=== PATIENT | female | born 1960 | race Caucasian/White ===

== ENCOUNTER → 2017-08-20 13:32 | Outpatient (CLI) | payer BC, SELFPAY ==
[2017-08-20 15:26] LABS: Anion Gap 6 (5-15); BUN 10 mg/dL (7-18); Calcium,Total 9.1 mg/dL (8.5-10.1); Chloride 103 mmol/L (98-107); Creatinine, Serum 0.91 mg/dL (0.55-1.02); EST Glomerular Filtration Rate 68 mL/min (>60); Est Glom Filt Rate - Afr Amer 82 mL/min (>60); Glucose 83 mg/dL (74-106); Sodium Level 137 mmol/L (136-145)
== END ==
PROVIDERS: Family Provider Family Medicine Geriatric Medicine; PCP Family Medicine Geriatric Medicine; Visit Provider Family Medicine Geriatric Medicine
DX: E87.6 Hypokalemia (principal)
CPT/HCPCS: 36415; 80048

== ENCOUNTER → 2018-01-22 14:25 | Outpatient (CLI) | payer BC, SELFPAY ==
[2018-01-22 17:34] LABS: Absolute Lymphocyte Count 2.26 X10^3/ul (0.83-4.51); Basophil# 0.01 X10^3/uL; Basophil% 0.1 % (0-1); Eosinophil# 0.03 X10^3/uL; Eosinophils% 0.4 % (0-5); Hemoglobin 13.3 g/dl (12.0-15.0); Lymphocyte # 2.26 X10^3/ul (4.0); Lymphocyte % 33.7 % (19-41); Mean Corp Hgb Conc 34.1 g/gl (32-36); Mean Corpuscular Hgb 30.4 pg (27.0-32.0); Mean Platelet Vol. 9.4 fl (6.2-12.0); Monocyte# 0.35 X10^3/uL; Monocyte% 5.2 % (0-10); Neutrophil # 4.04 X10^3/uL (2.7-7.7); Neutrophil % 60.5 % (47-70); POSITIVE COUNT NO; POSITIVE DIFFERENTIAL NO; POSITIVE MORPHOLOGY NO; Platelet Count 282 K/mm3 (150-450); RBC Distribution Width CV 12.8 % (11.6-14.6); RBC Distribution Width SD 41.5 fl (35.1-43.9); Red Blood Count 4.38 M/mm3 (4.2-5.4); White Blood Count 6.7 K/mm3 (4.4-11.0)
[2018-01-22 17:58] LABS: Vitamin D,25 Hydroxy 43.8 ng/mL (29.95-100.01)
[2018-01-22 18:00] LABS: ALB/GLOB Ratio 1.1 RATIO (0.9-2.4); AST(SGOT) 31 U/L (15-37); Alanine Aminotransfer ALT/SGPT 28 U/L (13-56); Alkaline Phosphatase 66 U/L (45-117); Anion Gap 10 (5-15); BUN 10 mg/dL (7-18); BUN/Creat Ratio 11.6 RATIO (10-20); Calcium,Total 8.8 mg/dL (8.5-10.1); Chloride 106 mmol/L (98-107); Creatinine, Serum 0.86 mg/dL (0.55-1.02); EST Glomerular Filtration Rate 73 mL/min (>60); Est Glom Filt Rate - Afr Amer 88 mL/min (>60); Globulin 3.8 g/dL (2.2-4.2); Glucose 80 mg/dL (74-106); Potassium 3.4 mmol/L (3.5-5.1); Protein, Total 7.8 g/dL (6.4-8.2); Sodium Level 142 mmol/L (136-145); Thyroid Stim Hormone (TSH) 0.67 uIU/mL (0.358-3.74)
[2018-01-24 14:21] LABS: Hep C Antibodies <0.1 s/co ratio (0.0-0.9)
== END ==
PROVIDERS: Family Provider Family Medicine Geriatric Medicine; PCP Family Medicine Geriatric Medicine; Visit Provider Family Medicine Geriatric Medicine
DX: E55.9 Vitamin D deficiency, unspecified (principal); I10 Essential (primary) hypertension; Z13.89 Encounter for screening for other disorder
CPT/HCPCS: 36415; 80053; 82306; 84443; 85025; 86803

== ENCOUNTER → 2018-05-06 13:17 | Outpatient (CLI) | payer BC, SELFPAY ==
[2018-05-14 10:51] LABS: Miscellaneous Lab Procedure E
== END ==
PROVIDERS: Visit Provider Obstetrics & Gynecology
DX: N90.89 Other specified noninflammatory disorders of vulva and perineum (principal)

== ENCOUNTER → 2018-05-30 11:09 | Outpatient (CLI) | payer BC, SELFPAY ==
[2018-05-30 12:12] LABS: Anion Gap 7 (5-15); BUN 16 mg/dL (7-18); BUN/Creat Ratio 18.3 RATIO (10-20); Calcium,Total 8.7 mg/dL (8.5-10.1); Chloride 107 mmol/L (98-107); Creatinine, Serum 0.87 mg/dL (0.55-1.02); EST Glomerular Filtration Rate 71 mL/min (>60); Est Glom Filt Rate - Afr Amer 86 mL/min (>60); Glucose 83 mg/dL (74-106); Potassium 4.1 mmol/L (3.5-5.1); Sodium Level 142 mmol/L (136-145)
== END ==
PROVIDERS: Visit Provider Family Medicine Geriatric Medicine
DX: E87.6 Hypokalemia (principal)
CPT/HCPCS: 36415; 80048

== ENCOUNTER → 2018-06-25 07:29 | Outpatient (CLI) | payer BC, SELFPAY ==
--- NOTE | 2018-06-25 07:31 | BI_ITS ---
MAMMOGRAPHY - BILATERAL SCREENING REASON FOR EXAM: Female, 57 years old. Routine annual screening examination. PERTINENT HISTORY: Non-contributory. TECHNIQUE: Digital bilateral breast cassandra (3D mammographic acquisition) in the CC and MLO projections. 2-D mediolateral oblique (MLO) and craniocaudad (CC) views of both breasts were obtained. CAD: Full Field Digital Mammography with Computer Added Detection was performed. COMPARISON: Comparison is made with prior study dated June 03, 2017 and May 21, 2016. FINDINGS: Breast Composition: The breasts are heterogeneously dense, which may obscure small masses. There are no dominant masses or suspicious calcifications. No other significant abnormalities are identified. There has been no significant change since the prior study. BI/SCREENING MAMM (CAD), BILAT IMPRESSION: Stable bilateral screening mammogram. Yearly follow-up mammogram recommended. (A) ASSESSMENT CATEGORY: BIRADS Category 1: Negative. A letter regarding these results will be sent to the patient by the facility within 30 days. Approximately 10% of breast cancers are not detected by mammography. A normal mammogram should not delay biopsy of a clinically suspicious abnormality. [id number] Electronically Signed: Terry Mccrary MD at 8:32 EST Tel [phone], Service support ,
--- OUTSIDE RECORDS SUMMARY | 2018-08-11 02:32 | XMS RPT_ITS ---
:1960 Author Organization OHIP Support Name Relationship Address Phone ROMAIN IDA/DACIA Unavailable [address] + [place] [address] WOOBR Unavailable [address] + [address] [place] [address] ROMAIN, IDA/DACIA Unavailable [address] + [place] [address] WOOBR Unavailable [address] + [address] [place] [address] ROMAIN, IDA/DACIA Unavailable [address] + [place] [address] WOOBR Unavailable [address] + [address] [place] [address] ROMAIN, IDA/DACIA Unavailable [address] + [place] [address] WOOBR Unavailable [address] + [address] [place] [address] ROMAIN, IDA/DACIA Unavailable [address] + [place] [address] WOOBR Unavailable [address] + [address] [place] [address] ROMAIN, IDA/DACIA Unavailable [address] + [place] [address] WOOBR Unavailable [address] + [address] [place] [address] ROMAIN, IDA/DACIA Unavailable [address] + [place] [address] WOOBR Unavailable [address] + [address] [place] [address] IDA HOYOS/DACIA Unavailable [address] + [place] [address] WOOBR Unavailable [address] + [address] [place] [address] Care Team Providers Name Role Phone Ana Paula Garcia Attending Unavailable ColesAna Paula Referring Unavailable Jordin, Juan Jose Chi Primary Care Unavailable Jordin, Juan Jose Chi Attending Unavailable Jordin, Juan Jose Chi Primary Care Unavailable Jordin, Juan Jose Chi Attending Unavailable Jordin, Juan Jose Chi Primary Care Unavailable Jordin, Juan Jose Chi Attending Unavailable Jordin, Juan Jose Chi Primary Care Unavailable Jordin, Juan Jose Chi Attending Unavailable Jordin, Juan Jose Chi Primary Care Unavailable Jordin, Juan Jose Chi Attending Unavailable Jordin, Juan Jose Chi Primary Care Unavailable Ana Paula Garcia Attending Unavailable Jordin, Juan Jose Chi Attending Unavailable PROBLEMS PROBLEMS DATE TYPE CONDITION / CODE ATTENDING STATUS SOURCE 05/27/2018 Unknown N90.89 - Other Ana Paula Garcia Active [place] [facility] and perineum / N90.89(ICD-10) 08/20/2017 Unknown E87.6 - Hypokalemia / Jordin, Juan Jose Chi Active Carlos E87.6(ICD-10) [facility] Repository PROCEDURES PROCEDURES No Procedure Records FoundRESULTS RESULTS BASIC METABOLIC Collected: 08/05/2018 Status: F Source: [place] PROFILE (BMP) 4:35 PM [facility] TYPE CODE TESTS RESULT OUT OF RANGE REFERENCE UNITS LAB L501.0100 74-106 mg/dL Normal GLU 80 Result Comment: Please note revised GLUCOSE reference range effective 2017. LAB L501.1000 7-18 mg/dL Normal BUN 12 LAB L501.1100 0.55-1.02 mg/dL Normal CREAT,SERUM 0.84 Result Comment: The validity of the calculated GFR AND GFRAA in patients over 70 years has not been determined. Clinical correlation is essential. LAB L501.1110 >60 mL/min Normal EST GFR 74 Result Comment: Non- GFR Calc LAB L501.1115 >60 mL/min Normal EST GFR - AA 90 Result Comment: GFR Calc LAB L501.1300 10-20 RATIO Normal BUN/CRE 14.3 LAB L501.2200 8.5-10.1 mg/dL CA Normal 8.9 LAB L501.5300 136-145 mmol/L NA Normal 142 LAB L501.5600 3.5-5.1 mmol/L K Normal 3.6 LAB L501.5900 98-107 mmol/L High CL 108 LAB L501.6100 21.0-32.0 mmol/L Normal CO2 26.0 LAB L501.6200 5-15 Normal GAP 8 Performed By: #### L500.2500 #### [facility] [place], [address] CBC W/DIFF, AUTOMATED Collected: 07/28/2018 Status: F Source: [place] 2:37 PM [facility] [place] TYPE CODE TESTS RESULT OUT OF RANGE REFERENCE UNITS LAB L100.1000 4.4-11.0 K/mm3 Normal WBC 6.5 LAB L100.1200 4.2-5.4 M/mm3 Low RBC 4.06 LAB L100.1300 12.0-15.0 g/dl Normal HGB 12.5 LAB L100.1400 37-47 % Normal HCT 37.3 LAB L100.1500 81-99 fL Normal MCV 91.9 LAB L100.1600 27.0-32.0 pg Normal MCH 30.8 LAB L100.1700 32-36 g/gl Normal MCHC 33.5 LAB L100.1810 11.6-14.6 % Normal RDW CV 13.1 LAB L100.1820 35.1-43.9 fl Normal RDW SD 43.9 LAB L100.1900 150-450 K/mm3 Normal PLT 286 LAB L100.2000 6.2-12.0 fl Normal MPV 9.3 LAB L100.2100 47-70 % Normal NEUT% 60.5 LAB L100.2200 19-41 % Normal LY% 31.4 LAB L100.2300 0-10 % Normal MONO% 7.0 LAB L100.2400 0-5 % Normal EO% 0.6 LAB L100.2500 0-1 % Normal BASO% 0.3 LAB L100.2550 0.0-0.9 % Normal IM GRAN % 0.200 Result Comment: IG% - Immature Granulocytes (promyelocytes, myelocytes and metamyelocytes) > 1% indicates that a LEFT SHIFT is Present. LAB L100.2620 2.0-7.7 X10 3/uL Normal Absolute Neut 3.9 LAB L100.2720 0.83-4.51 X10 3/ul Normal Absolute Lymph 2.03 Performed By: #### L100.0100 #### [facility] [address] [place], [address] VITAMIN D,25 HYDROXY Collected: 07/28/2018 Status: F Source: [place] 2:37 PM [facility] [place] TYPE CODE TESTS RESULT OUT OF RANGE REFERENCE UNITS LAB L506.1000 29.95-100.01 ng/mL Normal Vitamin D 59.8 25-OH Result Comment: Vitamin D 25(OH) Status Range Deficiency <20 ng/mL (50nmol/L) Insuffciency 20 - 30 ng/mL (50 - 75 nmol/L) Sufficiency 30 - 100 ng/mL (75 - 250 nmol/L) Toxicity >100 ng/mL (>250 nmol/L) Performed By: #### L506.1000 #### [facility] [address] [place], [address] COMPREHENSIVE METABOLIC Collected: 07/28/2018 Status: F Source: [facility] 2:37 PM [facility] [place] TYPE CODE TESTS RESULT OUT OF RANGE REFERENCE UNITS LAB L501.0100 74-106 mg/dL Normal GLU 75 Result Comment: Please note revised GLUCOSE reference range effective 2017. LAB L501.1000 7-18 mg/dL Normal BUN 9 LAB L501.1100 0.55-1.02 mg/dL Normal CREAT,SERUM 0.91 Result Comment: The validity of the calculated GFR AND GFRAA in patients over 70 years has not been determined. Clinical correlation is essential. LAB L501.1110 >60 mL/min Normal EST GFR 68 Result Comment: Non- GFR Calc LAB L501.1115 >60 mL/min Normal EST GFR - AA 82 Result Comment: GFR Calc LAB L501.1300 10-20 RATIO Low BUN/CRE 9.9 LAB L501.1500 6.4-8.2 g/dL Normal T PROT 7.4 LAB L501.1800 3.2-5.0 g/dL Normal ALB 4.0 LAB L501.1950 2.2-4.2 g/dL Normal GLOB 3.4 LAB L501.2000 0.9-2.4 RATIO Normal A/G 1.2 LAB L501.2200 8.5-10.1 mg/dL Normal CA 8.7 LAB L501.4100 15-37 U/L Normal AST 23 LAB L501.4305 45-117 U/L Normal ALK P 60 LAB L501.4405 13-56 U/L Normal ALT 29 LAB L501.4600 0.20-1.00 mg/dL Normal T BILI 0.70 LAB L501.5300 136-145 mmol/L Normal NA 137 LAB L501.5600 3.5-5.1 mmol/L Low K 3.3 LAB L501.5900 98-107 mmol/L Normal CL 99 LAB L501.6100 21.0-32.0 mmol/L Normal CO2 27.0 LAB L501.6200 5-15 Normal GAP 11 Performed By: #### L500.4050, L501.9520 #### [facility] [address] [place], [address] THYROID STIM HORMONE Collected: 07/28/2018 Status: F Source: [place] (TSH) 2:37 PM [facility] [place] [place] TYPE CODE TESTS RESULT OUT OF RANGE REFERENCE UNITS LAB L501.9520 0.358-3.74 uIU/mL Normal TSH 0.83 Performed By: #### L500.4050, L501.9520 #### [facility] [address] [place], [address] SCREENING MAMM (CAD), Observed: 06/25/2018 Status: F Source: [place] B[place] 7:31 AM [facility] [place] [facility] Imaging Services [address] [place] [address] SCREENING MAMM (CAD), BILAT MR#: [id number] Acct: [id number] Name: KARIE HOYOS Rep #: [id number] : 1960 F 57 From: Terry Mccrary MD PCP: Jordin ROMERO,Juan Jose Card Status: REG CLI Study: SCREENING MAMM (CAD), BILAT Date of Exam: 06/25/18 Exam# [id number] Ordering Dr: Ana Paula Garcia MD MAMMOGRAPHY - BILATERAL SCREENING REASON FOR EXAM: Female, 57 years old. Routine annual screening examination. PERTINENT HISTORY: Non-contributory. TECHNIQUE: Digital bilateral breast cassandra (3D mammographic acquisition) in the CC and MLO projections. 2-D mediolateral oblique (MLO) and craniocaudad (CC) views of both breasts were obtained. CAD: Full Field Digital Mammography with Computer Added Detection was performed. COMPARISON: Comparison is made with prior study dated June 03, 2017 and May 21, 2016. FINDINGS: Breast Composition: The breasts are heterogeneously dense, which may obscure small masses. There are no dominant masses or suspicious calcifications. No other significant abnormalities are identified. There has been no significant change since the prior study. BI/SCREENING MAMM (CAD), BILAT IMPRESSION: Stable bilateral screening mammogram. Yearly follow-up mammogram recommended. (A) ASSESSMENT CATEGORY: BIRADS Category 1: Negative. A letter regarding these results will be sent to the patient by the facility within 30 days. Approximately 10% of breast cancers are not detected by mammography. A normal mammogram should not delay biopsy of a clinically suspicious abnormality. [id number] Electronically Signed: Terry Mccrary MD at 8:32 EST Tel [phone], Service support , CC: Ana Paula Garcia MD; Juan Jose Brenner MD Residential Director: Signed BASIC METABOLIC Collected: 05/30/2018 Status: F Source: [place] PROFILE (BMP) 11:10 AM [facility] [place] Order Comment: Comments: . TYPE CODE TESTS RESULT OUT OF RANGE REFERENCE UNITS LAB L501.0100 74-106 mg/dL Normal GLU 83 Result Comment: Please note revised GLUCOSE reference range effective 2017. LAB L501.1000 7-18 mg/dL Normal BUN 16 LAB L501.1100 0.55-1.02 mg/dL Normal CREAT,SERUM 0.87 Result Comment: The validity of the calculated GFR AND GFRAA in patients over 70 years has not been determined. Clinical correlation is essential. LAB L501.1110 >60 mL/min Normal EST GFR 71 Result Comment: Non- GFR Calc LAB L501.1115 >60 mL/min Normal EST GFR - AA 86 Result Comment: GFR Calc LAB L501.1300 10-20 RATIO Normal BUN/CRE 18.3 LAB L501.2200 8.5-10.1 mg/dL CA Normal 8.7 LAB L501.5300 136-145 mmol/L NA Normal 142 LAB L501.5600 3.5-5.1 mmol/L K Normal 4.1 LAB L501.5900 98-107 mmol/L CL Normal 107 LAB L501.6100 21.0-32.0 mmol/L Normal CO2 28.0 LAB L501.6200 5-15 Normal GAP 7 Performed By: #### L500.2500 #### [facility] [address] [place], [place], [address] MISCELLANEOUS LAB Collected: 05/06/2018 Status: F Source: [place] PROCEDURE 10:15 AM [facility] Order Comment: Comments: #[id number] VIRAL CULTURE HSV/VZV RF Test(s) Ordered: #[id number] VIRAL CULTURE HSV/VZV RF TYPE CODE TESTS RESULT OUT OF RANGE REFERENCE UNITS LAB L801.1541 Normal [facility] E TEST Result Comment: Viral Culture, Rapid,Lesion HSV Culture/Type Positive for Herpes simplex virus type-1. Typing was confirmed by monoclonal antibody microscopic immunofluorescence. Viral Culture, Rapid Vericella Herpes simplex virus was isolated and confirmwd by flourescent antibody staining. This isolation of Varicella-Zoster virus from this culture is not possible due to the growth of Herpes simplex virus. This does not rule out the possibility of Varicella-Zoster virus. TESTING PERFORMED AT [facility]. ORIGINAL REPORT ON FILE IN LAB CONTAINS ADDITIONAL TEST SITE INFORMATION. Performed By: #### L801.1541 #### [place] [facility] [address] [place], [address] CNPN Observed: 04/30/2018 Status: COMPLETED Source: [place] 12:00 AM [facility] REPOSITORY Telephone (BONEMN) KARIE HOYOS ([id number]) 1960 F Date Time Provider Department 04/30/18 HARJEET DOMINGUEZ BONEMN During your visit today, we recorded the following information about you: Dacia Rodriguez ADM 04/30/2018 4:01 PM Addendum Received outside medical records. 2015 AND 2018 bone density results/images, 04/24/2018 office visit notes 10/22/2016 lab results and referral note from Dr. Karri Bardales from [facility]. Forwarded to Dr. Harjeet Dominguez. Placed in green folder on desk. Dacia Zimmerman Allergies As of Date: 04/30/2018 Noted Allergy Reaction RELPAX (ELETRIPTAN) 06/22/2011 14 - Other: See Comments Comments: chest pain CLIDINIUM 04/22/2015 16 - Unknown DICYCLOMINE 06/01/2015 9 - Itching FLAGYL (METRONIDAZOLE HCL) 06/02/2013 8 - GI Upset LEXAPRO (ESCITALOPRAM OXALATE) 12/24/2011 16 - Unknown LIBRAX (WITH CLIDINIUM) (CHLORDIA*03/08/2014 9 - Itching Comments: numbness MEDROXYPROGESTERONE 06/01/2015 2 - Rash Comments: Severe reaction NORETHINDRONE 12/24/2011 16 - Unknown PAXIL (PAROXETINE HCL) 12/24/2011 16 - Unknown PREDNISONE 03/20/2015 10 - Anaphylaxis PROVERA CP 06/02/2013 11 - Vomiting PROZAC (FLUOXETINE HCL) 12/24/2011 16 - Unknown TOPROL XL (METOPROLOL SUCCINATE) 12/24/2011 16 - Unknown TORADOL (KETOROLAC TROMETHAMINE) 11/09/2009 Comments: flushing, and feeling like she was going to pass out Date Reviewed: 06/01/2015 Reviewed by: Violet ([facility]) RAMON Horan - Fully Assessed Reason for Visit: Received Outside Medical Records [[id number]] Prescriptions as of 04/30/2018 Sig: ALMOTRIPTAN MALATE 12.5 MG TA* Take 1 tablet by mouth as nee* HYOSCYAMINE 0.125 MG SUBLINGU* Dissolve 1 tablet under the t* CELECOXIB 200 MG CAPSULE Take 200 mg by mouth once des* BUDESONIDE DR - ER 3 MG CAPSU* Take 3 capsules by mouth once* TOPIRAMATE 25 MG TABLET Take 1 tablet by mouth once d* ALENDRONATE 70 MG TABLET Take 70 mg by mouth once each* VILAZODONE 10 MG (7)-20 MG (7* Take by mouth. GABAPENTIN 100 MG CAPSULE Take 300 mg by mouth daily at* CHOLECALCIFEROL (VITAMIN D3) * Take 1,000 Units by mouth onc* CYCLOBENZAPRINE 10 MG TABLET Take 0.5 tablets by mouth des* POTASSIUM BICARBONATE AND CHL* Take 25 mEq by mouth once des* CALCIUM CITRATE 200 MG (950 M* Take 950 mg by mouth once des* LORAZEPAM 0.5 MG TABLET Take 0.5 tablets by mouth des* * MULTIVITAMIN TABLET Take one(1) tablet daily. 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] Encounter Status:Closed by DACIA VO on 04/30/18 CBC W/DIFF, AUTOMATED Collected: 01/22/2018 Status: F Source: [place] 2:25 PM [facility] [place] TYPE CODE TESTS RESULT OUT OF RANGE REFERENCE UNITS LAB L100.1000 4.4-11.0 K/mm3 Normal WBC 6.7 LAB L100.1200 4.2-5.4 M/mm3 Normal RBC 4.38 LAB L100.1300 12.0-15.0 g/dl Normal HGB 13.3 LAB L100.1400 37-47 % Normal HCT 39.0 LAB L100.1500 81-99 fL Normal MCV 89.0 LAB L100.1600 27.0-32.0 pg Normal MCH 30.4 LAB L100.1700 32-36 g/gl Normal MCHC 34.1 LAB L100.1810 11.6-14.6 % Normal RDW CV 12.8 LAB L100.1820 35.1-43.9 fl Normal RDW SD 41.5 LAB L100.1900 150-450 K/mm3 Normal PLT 282 LAB L100.2000 6.2-12.0 fl Normal MPV 9.4 LAB L100.2100 47-70 % Normal NEUT% 60.5 LAB L100.2200 19-41 % Normal LY% 33.7 LAB L100.2300 0-10 % Normal MONO% 5.2 LAB L100.2400 0-5 % Normal EO% 0.4 LAB L100.2500 0-1 % Normal BASO% 0.1 LAB L100.2550 0.0-0.9 % Normal IM GRAN % 0.100 Result Comment: IG% - Immature Granulocytes (promyelocytes, myelocytes and metamyelocytes) > 1% indicates that a LEFT SHIFT is Present. LAB L100.2620 2.0-7.7 X10 3/uL Normal Absolute Neut 4.0 LAB L100.2720 0.83-4.51 X10 3/ul Normal Absolute Lymph 2.26 Performed By: #### L100.0100 #### [facility] [address] [place], [address] VITAMIN D,25 HYDROXY Collected: 01/22/2018 Status: F Source: [place] 2:25 PM [facility] [place] TYPE CODE TESTS RESULT OUT OF RANGE REFERENCE UNITS LAB L506.1000 29.95-100.01 ng/mL Normal Vitamin D 43.8 25-OH Result Comment: Vitamin D 25(OH) Status Range Deficiency <20 ng/mL (50nmol/L) Insuffciency 20 - 30 ng/mL (50 - 75 nmol/L) Sufficiency 30 - 100 ng/mL (75 - 250 nmol/L) Toxicity >100 ng/mL (>250 nmol/L) Performed By: #### L506.1000 #### [facility] [address] [place], [address] COMPREHENSIVE METABOLIC Collected: 01/22/2018 Status: F Source: [place] [facility] 2:25 PM [facility] [place] TYPE CODE TESTS RESULT OUT OF RANGE REFERENCE UNITS LAB L501.0100 74-106 mg/dL Normal GLU 80 Result Comment: Please note revised GLUCOSE reference range effective 2017. LAB L501.1000 7-18 mg/dL Normal BUN 10 LAB L501.1100 0.55-1.02 mg/dL Normal CREAT,SERUM 0.86 Result Comment: The validity of the calculated GFR AND GFRAA in patients over 70 years has not been determined. Clinical correlation is essential. LAB L501.1110 >60 mL/min Normal EST GFR 73 Result Comment: Non- GFR Calc LAB L501.1115 >60 mL/min Normal EST GFR - AA 88 Result Comment: GFR Calc LAB L501.1300 10-20 RATIO Normal BUN/CRE 11.6 LAB L501.1500 6.4-8.2 g/dL T Normal PROT 7.8 LAB L501.1800 3.2-5.0 g/dL Normal ALB 4.0 LAB L501.1950 2.2-4.2 g/dL Normal GLOB 3.8 LAB L501.2000 0.9-2.4 RATIO Normal A/G 1.1 LAB L501.2200 8.5-10.1 mg/dL CA Normal 8.8 LAB L501.4100 15-37 U/L Normal AST 31 LAB L501.4305 45-117 U/L Normal ALK P 66 LAB L501.4405 13-56 U/L Normal ALT 28 LAB L501.4600 0.20-1.00 mg/dL T Normal BILI 0.80 LAB L501.5300 136-145 mmol/L NA Normal 142 LAB L501.5600 3.5-5.1 mmol/L Low K 3.4 LAB L501.5900 98-107 mmol/L CL Normal 106 LAB L501.6100 21.0-32.0 mmol/L Normal CO2 26.0 LAB L501.6200 5-15 Normal GAP 10 Performed By: #### L500.4050, L501.9520 #### [facility] [address] [place], [place], [id number] THYROID STIM HORMONE Collected: 01/22/2018 Status: F Source: [place] (TSH) 2:25 PM [facility] [place] TYPE CODE TESTS RESULT OUT OF RANGE REFERENCE UNITS LAB L501.9520 0.358-3.74 uIU/mL Normal TSH 0.67 Performed By: #### L500.4050, L501.9520 #### [facility] [address] [place], [place], [id number] HEPATITIS C ANTIBODIES Collected: 01/22/2018 Status: F Source: [place] 2:25 PM [facility] [place] TYPE CODE TESTS RESULT OUT OF RANGE REFERENCE UNITS LAB L3100.0650 0.0-0.9 s/co ratio Normal HEP C AB <0.1 Result Comment: Negative: < 0.8 Indeterminate: 0.8 - 0.9 Positive: > 0.9 The CDC recommends that a positive HCV antibody result be followed up with a HCV Nucleic Acid Amplification test ([id number]). Performed at: - [facility] [id number] Vice President Investor Relations: Matias Harrison PhD, Phone: [phone] Performed By: #### L3100.0625 #### [facility] (refer to report for specific site) refer to report for address and phone number BASIC METABOLIC Collected: 08/20/2017 Status: F Source: [place] PROFILE (BMP) 1:33 PM [facility] [place] TYPE CODE TESTS RESULT OUT OF RANGE REFERENCE UNITS LAB L501.0100 74-106 mg/dL Normal GLU 83 LAB L501.1000 7-18 mg/dL Normal BUN 10 LAB L501.1100 0.55-1.02 mg/dL Normal 0.91 CREAT,SERUM Result Comment: The validity of the calculated GFR AND GFRAA in patients over 70 years has not been determined. Clinical correlation is essential. LAB L501.1110 >60 mL/min Normal EST GFR 68 Result Comment: Non- GFR Calc LAB L501.1115 >60 mL/min Normal EST GFR - AA 82 Result Comment: GFR Calc LAB L501.1300 10-20 RATIO Normal BUN/CRE 11.0 LAB L501.2200 8.5-10.1 mg/dL CA Normal 9.1 LAB L501.5300 136-145 mmol/L NA Normal 137 LAB L501.5600 3.5-5.1 mmol/L K Normal 4.0 LAB L501.5900 98-107 mmol/L CL Normal 103 LAB L501.6100 21.0-32.0 mmol/L Normal CO2 28.0 LAB L501.6200 5-15 Normal GAP 6 Performed By: #### L500.2500 #### [facility] [place], [address] BASIC METABOLIC Collected: 08/08/2017 Status: F Source: [place] PROFILE (BMP) 1:42 PM [facility] [place] TYPE CODE TESTS RESULT OUT OF RANGE REFERENCE UNITS LAB L501.0100 70-110 mg/dL Normal GLU 84 LAB L501.1000 7-18 mg/dL Normal BUN 13 LAB L501.1100 0.55-1.02 mg/dL Normal 0.76 CREAT,SERUM Result Comment: The validity of the calculated GFR AND GFRAA in patients over 70 years has not been determined. Clinical correlation is essential. LAB L501.1110 >60 mL/min Normal EST GFR 85 Result Comment: Non- GFR Calc LAB L501.1115 >60 mL/min Normal EST GFR - AA 102 Result Comment: GFR Calc LAB L501.1300 10-20 RATIO Normal BUN/CRE 17.2 LAB L501.2200 8.5-10.1 mg/dL CA Normal 8.8 LAB L501.5300 136-145 mmol/L NA Normal 140 LAB L501.5600 3.5-5.1 mmol/L Low K 3.4 LAB L501.5900 98-107 mmol/L CL Normal 105 LAB L501.6100 21.0-32.0 mmol/L Normal CO2 27.0 LAB L501.6200 5-15 Normal GAP 8 Performed By: #### L500.2500 #### [facility] [address] [place], [address] ALLERGIES ALLERGIES DATE TYPE / NAME / CODE REACTION SEVERITY SOURCE CODE 04/08/2017 Drug hydrocodone/[id number](R Itching Unknown [place] Allergy/4 XNORM) Community [id number]( [facility]) 04/08/2017 Drug acetaminophen/[id number] Itching Unknown [place] Allergy/4 (RXNORM) Community [id number]( [facility]) 04/08/2017 Drug prednisone/[id number](RX Chest Unknown [place] Allergy/4 NORM) tightness Community [id number]( [facility]) 04/08/2017 Drug dicyclomine/[id number](R Itching Unknown [place] Allergy/4 XNORM) Community [id number]( [facility]) 04/08/2017 Drug medroxyprogesterone/F006 Unknown Unknown [place] Allergy/4 856814(RXNORM) Community [id number]( [facility]) 04/23/2014 Drug medroxyprogesterone Nausea Unknown [place] Allergy/4 acetate/[id number](RXNOR Community [id number]( ) [facility]) 04/23/2014 Drug fluoxetine Unknown Unknown [place] Allergy/4 HCl/[id number](RXNORM) Community [id number]( [facility]) 04/23/2014 Drug ketorolac Chest Unknown [place] Allergy/4 tromethamine/M678163505( tightness Community [id number]( RXNORM) [facility]) 04/23/2014 Drug metoprolol Unknown Unknown [place] Allergy/4 succinate/L396526106(RXN Community [id number]( ORM) [facility]) 04/23/2014 Drug paroxetine Unknown Unknown [place] Allergy/4 HCl/[id number](RXNORM) Community [id number]( [facility]) 04/23/2014 Drug eletriptan Chest Unknown [place] Allergy/4 HBr/G349840458(RXNORM) tightness Community [id number]( [facility]) 04/23/2014 Drug escitalopram Unknown Unknown [place] Allergy/4 oxalate/I766742642(RXNOR Community [id number]( M) [facility]) 04/23/2014 Drug norethindrone/[id number] Nausea Unknown [place] Allergy/4 (RXNORM) Community [id number]( [facility]) 04/23/2014 Drug chlordiazepoxide/U572608 Itching Unknown [place] Allergy/4 454(RXNORM) Community [id number]( [facility]) 04/23/2014 Drug metronidazole/D780595032 Nausea Unknown [place] Allergy/4 (RXNORM) Community [id number]( [facility]) 04/23/2014 Drug clidinium/G750514229(RXN Itching Unknown [place] Allergy/4 ORM) Community [id number]( [facility]) ENCOUNTERS ENCOUNTERS ADMIT/DISCHARGE ACCOUNT ADMITTING ENCOUNTER LOCATION SOURCE NUMBER CLASS 08/05/2018 [id number] Ambulatory [place] 1 [facility] ing:POLAB3 Repository 07/28/2018 [id number] Ambulatory [place] 8 [facility] ing:POLAB3 Repository 06/25/2018 [id number] Ambulatory [place] 4 [facility] ing:OPBI Repository 05/30/2018 [id number] Ambulatory [place] 2 [facility] ing:POLAB3 Repository 05/06/2018 [id number] Ambulatory [place] 9 [facility] ing:LABSPEC Repository 01/22/2018 [id number] Ambulatory [place] 1 [facility] ing:POLAB3 Repository 08/20/2017 [id number] Ambulatory [place] 6 [facility] ing:POLAB3 Repository 08/08/2017 [id number] Ambulatory [place] Carlos 5 [facility] ing:LAB.FUTUR Repository E PAYERS PAYERS ENCOUNTER GUARANTOR PAYER SUBSCRIBER SOURCE 08/05/2018 KARIE K Primary KARIE K Carlos [id number] N Insurance:ANTHEMPolic STULLDOB: Community [place] y Number: [id number], [place] [id number] Repository [address]Iwf: (330) Date:5568-23-14JS [phone] () [id number], [place] [address]JW: 08/05/2018 Secondary NOT GIVENUNK [place] Insurance:SELF PAY [facility] Number: Effective Repository Date:2018-07-31 07/28/2018 KARIE K Primary KARIE K [place] [id number] N Insurance:ANTHEMPolic STULLDOB: Community [place] y Number: [id number] [place] [id number] Repository 004[address]Soi: (330) Date:0839-85-73AA [phone] () 272109MSDVOXO, [place] [address]NE: 07/28/2018 Secondary NOT GIVENUNK Carlos Insurance:SELF PAY [facility] Number: Effective Repository Date:2018-07-28 06/25/2018 KARIE K Primary KARIE K [place] [id number] N Insurance:ANTHEMPolic STULLDOB: Community [place] y Number: [id number] [place], [place] [id number] Repository 50484Fxv: (330) Date:0673-44-17KM [phone] () 172712IFHAOCZ, [place] [address]OT: 06/25/2018 Secondary NOT GIVENUNK [place] Insurance:SELF PAY [facility] Number: Effective Repository Date:2018-06-02 05/30/2018 KARIE K Primary KARIE K Carlos [id number] N Insurance:ANTHEMPolic STULLDOB: Community [place] y Number: [id number] [place] [id number] Repository 10027Suk: (330) Date:0099-55-62AV [phone] () JOSE G SANCHEZ [address]IL: 05/30/2018 Secondary NOT GIVENUNK [place] Insurance:SELF PAY [facility] Number: Effective Repository Date:2018-05-30 05/06/2018 KARIE K Primary KARIE K [place] [id number] N Insurance:ANTHEMPolic STULLDOB: Community [place] y Number: [id number] Park Medical [id number] Repository [address]Din: (330) Date:5474-44-29UQ [phone] () [id number] G YOUSIF [address]QG: 05/06/2018 Secondary NOT GIVENUNK [place] Insurance:SELF PAY [facility] Number: Effective Repository Date:2018-05-06 01/22/2018 Karie K Primary Karie K Carlos [id number] N Insurance:ANTHEMPolic StullDOB: Community [place] y Number: [id number] [id number] Repository 489[address]Xny: (330) Date:1918-34-21YW [phone] () [place]SE G SANCHE[place] [address]RM: 01/22/2018 Secondary NOT GIVENUNK [place] Insurance:SELF PAY [facility] Number: Effective Repository Date:2018-01-22 08/20/2017 Karie K Primary Karie K Carlos [id number] N Insurance:ANTHEMPolic StullDOB: Community [place] y Number: [id number], [place] [id number] Repository 006[address]Fni: Date:1868-30-47SA [phone]~330 JOSE G SANCHEZ -2 () [address]NY: 08/20/2017 Secondary NOT GIVENUNK [place] Insurance:SELF PAY [facility] Number: Effective Repository Date:2017-08-12 08/08/2017 Karie K Primary Karie K Carlos [id number] N Insurance:ANTHEMPolic StullDOB: Community [place] y Number: [id number], [place] [id number] Repository 65879Lzn: Date:2801-01-05AB [phone]~330 [id number], [place] -2 () [address]IX: 08/08/2017 Secondary NOT GIVENUNK [place] Insurance:SELF PAY [facility] Number: Effective Repository Date:2017-08-07
== END ==
PROVIDERS: Family Provider Family Medicine Geriatric Medicine; PCP Family Medicine Geriatric Medicine; Referring Provider Obstetrics & Gynecology; Visit Provider Obstetrics & Gynecology
DX: Z12.31 Encounter for screening mammogram for malignant neoplasm of breast (principal)
CPT/HCPCS: 77063; 77067

== ENCOUNTER → 2018-07-28 14:34 | Outpatient (CLI) | payer BC, SELFPAY ==
[2018-07-28 17:46] LABS: Absolute Lymphocyte Count 2.03 X10^3/ul (0.83-4.51); Absolute Neutrophil Count 3.9 X10^3/uL (2.0-7.7); Basophil# 0.02 X10^3/uL; Basophil% 0.3 % (0-1); Eosinophil# 0.04 X10^3/uL; Eosinophils% 0.6 % (0-5); Hematocrit 37.3 % (37-47); Hemoglobin 12.5 g/dl (12.0-15.0); Lymphocyte # 2.03 X10^3/ul (4.0); Lymphocyte % 31.4 % (19-41); Mean Corp Hgb Conc 33.5 g/gl (32-36); Mean Corpuscular Hgb 30.8 pg (27.0-32.0); Mean Corpuscular Volume 91.9 fL (81-99); Mean Platelet Vol. 9.3 fl (6.2-12.0); Monocyte# 0.45 X10^3/uL; Neutrophil # 3.92 X10^3/uL (2.7-7.7); Neutrophil % 60.5 % (47-70); Platelet Count 286 K/mm3 (150-450); RBC Distribution Width CV 13.1 % (11.6-14.6); RBC Distribution Width SD 43.9 fl (35.1-43.9); Red Blood Count 4.06 M/mm3 (4.2-5.4); White Blood Count 6.5 K/mm3 (4.4-11.0)
[2018-07-28 17:51] LABS: POSITIVE COUNT NO; POSITIVE DIFFERENTIAL NO; POSITIVE MORPHOLOGY NO
[2018-07-28 18:14] LABS: Vitamin D,25 Hydroxy 59.8 ng/mL (29.95-100.01)
[2018-07-28 19:12] LABS: ALB/GLOB Ratio 1.2 RATIO (0.9-2.4); AST(SGOT) 23 U/L (15-37); Alanine Aminotransfer ALT/SGPT 29 U/L (13-56); Alkaline Phosphatase 60 U/L (45-117); Anion Gap 11 (5-15); BUN 9 mg/dL (7-18); BUN/Creat Ratio 9.9 RATIO (10-20); Calcium,Total 8.7 mg/dL (8.5-10.1); Chloride 99 mmol/L (98-107); Creatinine, Serum 0.91 mg/dL (0.55-1.02); EST Glomerular Filtration Rate 68 mL/min (>60); Est Glom Filt Rate - Afr Amer 82 mL/min (>60); Globulin 3.4 g/dL (2.2-4.2); Glucose 75 mg/dL (74-106); Potassium 3.3 mmol/L (3.5-5.1); Protein, Total 7.4 g/dL (6.4-8.2); Sodium Level 137 mmol/L (136-145); Thyroid Stim Hormone (TSH) 0.83 uIU/mL (0.358-3.74)
== END ==
PROVIDERS: Family Provider Family Medicine Geriatric Medicine; PCP Family Medicine Geriatric Medicine; Visit Provider Family Medicine Geriatric Medicine
DX: E55.9 Vitamin D deficiency, unspecified (principal); I10 Essential (primary) hypertension
CPT/HCPCS: 36415; 80053; 82306; 84443; 85025

== ENCOUNTER → 2018-08-05 16:34 | Outpatient (CLI) | payer BC, SELFPAY ==
[2018-08-05 17:43] LABS: Anion Gap 8 (5-15); BUN 12 mg/dL (7-18); BUN/Creat Ratio 14.3 RATIO (10-20); Calcium,Total 8.9 mg/dL (8.5-10.1); Chloride 108 mmol/L (98-107); Creatinine, Serum 0.84 mg/dL (0.55-1.02); EST Glomerular Filtration Rate 74 mL/min (>60); Est Glom Filt Rate - Afr Amer 90 mL/min (>60); Glucose 80 mg/dL (74-106); Potassium 3.6 mmol/L (3.5-5.1); Sodium Level 142 mmol/L (136-145)
--- OUTSIDE RECORDS SUMMARY | 2018-10-07 22:56 | XMS RPT_ITS ---
:1960 Author Organization OHIP Care Team Providers Name Role Phone Ana Paula Garcia Attending Unavailable Ana Paula Garcia Referring Unavailable Jordin, Juan Jose Chi Primary Care Unavailable Jordin, Juan Jose Chi Attending Unavailable Jordin, Juan Jose Chi Primary Care Unavailable Jordin, Juan Jose Chi Attending Unavailable Jordin, Juan Jose Chi Primary Care Unavailable Jordin, Juan Jose Chi Attending Unavailable Jordin, Juan Jose Chi Primary Care Unavailable [place]oAna Paula david Attending Unavailable Jordin, Juan Jose Chi Attending Unavailable Jordin, Juan Jose Chi Primary Care Unavailable Jordin, Juan Jose Chi Attending Unavailable PROBLEMS PROBLEMS DATE TYPE CONDITION / CODE ATTENDING STATUS SOURCE 05/27/2018 Unknown N90.89 - Other Ana Paula Garcia Active [place] specified [facility] disorders of vulva Repository and perineum / N90.89(ICD-10) 08/20/2017 Unknown E87.6 - Hypokalemia / Jordin, Juan Jose Chi Active [place] E87.6(ICD-10) [facility] Repository PROCEDURES PROCEDURES No Procedure Records FoundRESULTS RESULTS BASIC METABOLIC Collected: 08/05/2018 Status: F Source: CARLOS PROFILE (BMP) 4:35 PM [facility] TYPE CODE TESTS RESULT OUT OF [...] GAP 8 Performed By: #### L500.2500 #### Laboratory [address] [facility] [address] [place], [place], [address] CBC W/DIFF, AUTOMATED Collected: 07/28/2018 Status: F Source: [place] 2:37 PM [facility] TYPE CODE TESTS RESULT OUT OF [...] Lymph 2.03 Performed By: #### L100.0100 #### Laboratory [address] [place], [address] VITAMIN D,25 HYDROXY Collected: 07/28/2018 Status: F Source: CARLOS 2:37 PM [facility] TYPE CODE TESTS RESULT OUT OF RANGE REFERENCE UNITS LAB L506.1000 29.95-100.01 ng/mL Normal Vitamin D 59.8 25-OH Result Comment: Vitamin D 25(OH) Status Range Deficiency <20 ng/mL (50nmol/L) Insuffciency 20 - 30 ng/mL (50 - 75 nmol/L) Sufficiency 30 - 100 ng/mL (75 - 250 nmol/L) Toxicity >100 ng/mL (>250 nmol/L) Performed By: #### L506.1000 #### Laboratory [address] [place], [address] COMPREHENSIVE METABOLIC Collected: 07/28/2018 Status: F Source: CAR[facility]OS [facility] 2:37 PM [facility] TYPE CODE TESTS RESULT OUT OF [...] 11 Performed By: #### L500.4050, L501.9520 #### Laboratory [address] [facility] [place], [address] THYROID STIM HORMONE Collected: 07/28/2018 Status: F Source: [place] (TSH) 2:37 PM [facility] TYPE CODE TESTS RESULT OUT OF RANGE REFERENCE UNITS LAB 01.9520 0.358-3.74 uIU/mL Normal TSH 0.83 Performed By: #### L500.4050, L501.9520 #### Laboratory [address] [place], [address] SCREENING MAMM (CAD), Observed: 06/25/2018 Status: F Source: CARLOS BILAT 7:31 AM [facility] Imaging Services [address] [place] [address] SCREENING MAMM (CAD), BILAT MR#: [id number] Acct: [id number] Name: KARIE HOYOS Rep #: [id number] : 1960 F 57 From: Terry Mccrary MD PCP: Jordin ROMERO,Juan Jose Chi Status: REG CL Study: SCREENING MAMM (CAD), BILAT Date of Exam: 06/25/18 Exam# [id number] Ordering Dr: Ana Paula Garcia MD MAMMOGRAPHY [...] delay biopsy of a clinically suspicious abnormality. [id number] Electronically Signed: Terry Mccrary MD at 8:32 EST Tel [phone], Service support , CC: Ana Paula Garcia MD; Juan Jose Brenner MD Lathe Operator Contact Lens: Signed BASIC METABOLIC Collected: 05/30/2018 Status: F Source: CARLOS PROFILE (BMP) 11:10 AM [facility] Order Comment: Comments: . TYPE CODE [...] GAP 7 Performed By: #### L500.2500 #### Laboratory [address] [place], [address] MISCELLANEOUS LAB Collected: 05/06/2018 Status: F Source: [place] PROCEDURE 10:15 AM [facility] Order Comment: Comments: #[id number] VIRAL CULTURE HSV/VZV RF Test(s) Ordered: #[id number] VIRAL CULTURE HSV/VZV RF TYPE CODE TESTS RESULT OUT OF RANGE REFERENCE UNITS LAB L801.1541 Normal [facility] E TEST Result Comment: Viral Culture, [...] possibility of Varicella-Zoster virus. TESTING PERFORMED AT [facility]. ORIGINAL REPORT ON FILE IN LAB CONTAINS ADDITIONAL TEST SITE INFORMATION. Performed By: #### L801.1541 #### Carlos [facility] Laboratory [address] [place], [address] CNPAgnes Observed: 04/30/2018 Status: COMPLETED Source: [place] 12:00 AM [facility] REPOSITORY Telephone (BONEMN) KARIE HOYOS ([id number]) 1960 F Date Time Provider Department 04/30/18 HARJEET DOMINGUEZ BONEMN During your visit today, we recorded the following information about you: Dacia Rodriguez ADM 04/30/2018 4:01 PM Addendum Received outside medical records. 2015 AND 2018 bone density results/images, 04/24/2018 office visit notes 10/22/2016 lab results and referral note from Dr. Karri Bardales from [facility]. Forwarded to Dr. Harjeet Dominguez. [...] out Date Reviewed: 06/01/2015 Reviewed by: Violet ([facility]) RAMON Horan - Fully Assessed Reason [...] 01/22/2018 Status: F Source: CARLOS 2:25 PM [facility] TYPE CODE TESTS RESULT OUT OF [...] Lymph 2.26 Performed By: #### L100.0100 #### Laboratory [address], [place], [id number] VITAMIN D,25 HYDROXY Collected: 01/22/2018 Status: F Source: [place] 2:25 PM [facility] TYPE CODE TESTS RESULT OUT OF RANGE REFERENCE UNITS LAB L506.1000 29.95-100.01 ng/mL Normal Vitamin D 43.8 25-OH Result Comment: Vitamin D 25(OH) Status Range Deficiency <20 ng/mL (50nmol/L) Insuffciency 20 - 30 ng/mL (50 - 75 nmol/L) Sufficiency 30 - 100 ng/mL (75 - 250 nmol/L) Toxicity >100 ng/mL (>250 nmol/L) Performed By: #### L506.1000 #### Laboratory [address] [place], [address] COMPREHENSIVE METABOLIC Collected: 01/22/2018 Status: F Source: [facility] 2:25 PM [facility] TYPE CODE TESTS RESULT OUT OF [...] 10 Performed By: #### L500.4050, L501.9520 #### Laboratory [address] [place], [place], [id number] THYROID STIM HORMONE Collected: 01/22/2018 Status: F Source: CARLOS (TSH) 2:25 PM [facility] TYPE CODE TESTS RESULT OUT OF RANGE REFERENCE UNITS LAB L501.9520 0.358-3.74 uIU/mL Normal TSH 0.67 Performed By: #### L500.4050, L501.9520 #### Laboratory [address] [place], [place], [address] HEPATITIS C ANTIBODIES Collected: 01/22/2018 Status: F Source: [place]OS 2:25 PM [facility] TYPE CODE TESTS RESULT OUT OF RANGE REFERENCE UNITS LAB L3100.0650 0.0-0.9 s/co ratio Normal HEP C AB <0.1 Result Comment: Negative: < 0.8 Indeterminate: 0.8 - 0.9 Positive: > 0.9 The CDC recommends that a positive HCV antibody result be followed up with a HCV Nucleic Acid Amplification test (040565). Performed at: [facility] [id number] Radial Saw Operator: Matias Harrison PhD, Phone: [phone] Performed By: #### L3100.0625 #### [facility] (refer to report for specific site) refer to report for address and phone number BASIC METABOLIC Collected: 08/20/2017 Status: F Source: CAR[place] PROFILE (BMP) 1:33 PM [facility] TYPE CODE TESTS RESULT OUT OF [...] GAP 6 Performed By: #### L500.2500 #### Laboratory [address] [facility] [place], [address] ALLERGIES ALLERGIES DATE TYPE / NAME / CODE REACTION SEVERITY SOURCE CODE 04/08/2017 Drug hydrocodone/[id number](R Itching Unknown [place] Allergy/4 XNORM) [facility] [id number]( [facility]) 04/08/2017 Drug acetaminophen/E695578769 Itching Unknown [place] Allergy/4 (RXNORM) [facility] [id number]( [facility]) 04/08/2017 Drug prednisone/F569465218(RX Chest Unknown [place] Allergy/4 NORM) tightness Community [id number]( [facility]) 04/08/2017 Drug dicyclomine/Z863426614(R Itching Unknown [place] Allergy/4 XNORM) Community 26233355( [facility]) 04/08/2017 Drug medroxyprogesterone/F006 Unknown Unknown [place] Allergy/4 769240(RXNORM) Community 46513695( [facility]) 04/23/2014 Drug medroxyprogesterone Nausea Unknown [place] Allergy/4 acetate/Q442371461(RXNOR Community 50312369( ) [facility]) 04/23/2014 Drug fluoxetine Unknown Unknown [place] Allergy/4 HCl/W242369166(RXNORM) Community 01630738( [facility]) 04/23/2014 Drug ketorolac Chest Unknown [place] Allergy/4 tromethamine/Z344394873( tightness Community 18213603( RXNORM) [facility]) 04/23/2014 Drug metoprolol Unknown Unknown [place] Allergy/4 succinate/L724648876(RXN Community 85677502( ORM) [facility]) 04/23/2014 Drug paroxetine Unknown Unknown [place] Allergy/4 HCl/T035631197(RXNORM) Community 03746182( [facility]) 04/23/2014 Drug eletriptan Chest Unknown [place] Allergy/4 HBr/S938885989(RXNORM) tightness Community 11210198( [facility]) 04/23/2014 Drug escitalopram Unknown Unknown [place] Allergy/4 oxalate/W058554217(RXNOR Community 52770883( M) [facility]) 04/23/2014 Drug norethindrone/Z719468304 Nausea Unknown [place] Allergy/4 (RXNORM) Community 72677095( [facility]) 04/23/2014 Drug chlordiazepoxide/A359540 Itching Unknown [place] Allergy/4 454(RXNORM) Community 88818776( [facility]) 04/23/2014 Drug metronidazole/W759781421 Nausea Unknown [place] Allergy/4 (RXNORM) Community 85184802( [facility]) 04/23/2014 Drug clidinium/K999381449(RXN Itching Unknown [place] Allergy/4 ORM) Community 85138718( [facility]) ENCOUNTERS ENCOUNTERS ADMIT/DISCHARGE ACCOUNT ADMITTING ENCOUNTER LOCATION SOURCE NUMBER CLASS 08/05/2018 [id number] Ambulatory [place] Carlos [address] [facility] ing:POLAB3 Repository 07/28/2018 [id number] Ambulatory Carlos Carlos [address] [facility] ing:POLAB3 Repository 06/25/2018 [id number] Ambulatory Carlos [place] [address] [facility] ing:OPBI Repository 05/30/2018 [id number] Ambulatory Carlos Carlos [address] [facility] ing:POLAB3 Repository 05/06/2018 [id number] Ambulatory [place] Carlos [address] [facility] ing:LABSPEC Repository 01/22/2018 [id number] Ambulatory [place] [address] [facility] ing:POLAB3 Repository 08/20/2017 [id number] Ambulatory Carlos [place] [address] [facility] ing:POLAB3 Repository PAYERS PAYERS ENCOUNTER GUARANTOR PAYER SUBSCRIBER SOURCE 08/05/2018 KARIE K Primary KARIE K Carlos [id number] N Insurance:ANTHEMPolic STULLDOB: Community [place] y Number: [id number], [place] [id number] Repository [address]Rdd: (330) Date:2366-64-79AF [phone] () [address] [place] [address] [place] [address]KN: 08/05/2018 Secondary NOT GIVENUNK [place] Insurance:SELF PAY [facility] Number: Effective Repository Date:2018-07-31 07/28/2018 KARIE K Primary KARIE K [place] [id number] N Insurance:ANTHEMPolic STULLDOB: Community [place] y Number: [id number], [place] [id number] Repository [address]Bqn: (330) Date:0744-27-57WX [phone] () [address] [place] [address]XY: 07/28/2018 Secondary NOT GIVENUNK [place] Insurance:SELF PAY [facility] Number: Effective Repository Date:2018-07-28 06/25/2018 KARIE K Primary KARIE K Carlos [id number] N Insurance:ANTHEMPolic STULLDOB: Community [place] y Number: [id number], [place] [id number] Repository [address]Tpb: (330) Date:6834-95-41UG [phone] () [address] [place] [address] [place] [address]MC: 06/25/2018 Secondary NOT GIVENUNK [place] Insurance:SELF PAY [facility] Number: Effective Repository Date:2018-06-02 05/30/2018 KARIE K Primary KARIE K [place] [id number] N Insurance:ANTHEMPolic STULLDOB: Community [place] y Number: [id number], [place] [id number] Repository [address]Bjv: (330) Date:5115-71-18LC [phone] () [id number] G YOUSIF [address]OL: 05/30/2018 Secondary NOT GIVENUNK [place] Insurance:SELF PAY [facility]: Effective Repository Date:2018-05-30 05/06/2018 KARIE K Primary KARIE K [place] [id number] N Insurance:ANTHEMPolic STULLDOB: Community [place] y Number: [id number], [place] [id number] Repository [address]Mjo: (330) Date:3528-53-32DJ [phone] () JOSE [place] SANCHE[place] [address]IX: 05/06/2018 Secondary NOT GIVENUNK Carlos Insurance:SELF PAY [facility] Number: Effective Repository Date:2018-05-06 01/22/2018 Karie K Primary Karie K Carlos [id number] N Insurance:ANTHEMPolic StullDOB: Community [place] y Number: [id number], [place] [id number] Repository [address]Tps: (330) Date:2946-65-72AJ [phone] () [id number] G YOUSIF [address]GM: 01/22/2018 Secondary NOT GIVENUNK [place] Insurance:SELF PAY [facility] Number: Effective Repository Date:2018-01-22 08/20/2017 Karie K Primary Karie K Carlos [id number] N Insurance:ANTHEMPolic StullDOB: Community [place] y Number: [id number], [place] [id number] Repository 25[address]Upq: Date:0220-52-37QM [phone]~330 JO[place] SANCHE[place] -2 () [address]WN: 08/20/2017 Secondary NOT GIVENUNK [place] Insurance:SELF PAY [facility] Number: Effective Repository Date:2017-08-12
== END ==
PROVIDERS: Family Provider Family Medicine Geriatric Medicine; PCP Family Medicine Geriatric Medicine; Visit Provider Family Medicine Geriatric Medicine
DX: E87.6 Hypokalemia (principal)
CPT/HCPCS: 36415; 80048

== ENCOUNTER → 2018-09-08 16:36 | Outpatient (CLI) | payer BC, SELFPAY ==
[2018-09-08 18:35] LABS: M R Staph aureus DNA By PCR Negative (Negative); Probe Check PASS; Specimen Processing Control PASS; Staph aureus DNA By PCR POSITIVE (Negative)
== END ==
PROVIDERS: Family Provider Family Medicine Geriatric Medicine; PCP Family Medicine Geriatric Medicine; Referring Provider Family Medicine Geriatric Medicine; Visit Provider Family Medicine Geriatric Medicine
DX: R50.9 Fever, unspecified (principal); Z22.39 Carrier of other specified bacterial diseases
CPT/HCPCS: 87633; 87640

== ENCOUNTER → 2018-10-02 13:40 | Outpatient (CLI) | payer BC, SELFPAY ==
[2018-10-02 13:21] VITALS: BMI 20.2
[2018-10-03 20:07] LABS: Endomysial Antibody IgA Negative (Negative)
[2018-10-04 11:58] LABS: Immunoglobulin A 277 mg/dL (87-352); t-Transglutaminase IgA <2 U/mL (0-3)
== END ==
PROVIDERS: Family Provider Family Medicine Geriatric Medicine; PCP Family Medicine Geriatric Medicine; Referring Provider Surgery; Visit Provider Surgery
DX: R10.9 Unspecified abdominal pain (principal)
CPT/HCPCS: 82784; 83516; 86255

== ENCOUNTER → 2018-10-03 13:27 | Outpatient (CLI) | payer BC, SELFPAY ==
[2018-10-02 13:21] VITALS: BMI 20.2
== END ==
PROVIDERS: Family Provider Family Medicine Geriatric Medicine; PCP Family Medicine Geriatric Medicine; Referring Provider Family Medicine Geriatric Medicine; Visit Provider Family Medicine Geriatric Medicine
DX: R50.9 Fever, unspecified (principal)
CPT/HCPCS: 87633

== ENCOUNTER 2018-10-15 08:20 | Day surgery (SDC) | payer BC, SELFPAY ==
[2018-10-02 13:21] VITALS: BMI 20.2
[2018-10-15 08:30] VITALS: BP 117/76; PULSE 100; RESP 16; TEMP 37.1; O2SAT 100; BMI 19.5
--- NOTE | 2018-10-15 09:30 | IMM_PTH ---
PATIENT: KAROL HOYOS LOC: EN U#:[id number] AGE/SX: 58/F ROOM: RE10/15/[address]: Dr. Tomas Newby MD : 1960 BED: DIS: 10/15/2018 SPEC #: [id number] RECD: 10/15/18 14:38 STATUS: RICCO REQ #: [id number] RUBIO: 10/15/18 09:[address]: Tomas Newby DEPT: IMMUNOHISTOCHEMISTRY RECD BY: Kaela Oconnell ENTERED: 10/15/18 14:38 SP TYPE: IMMUNO OTHR DR: Dr. Juan Jose Brenner MD Tissues: B - Stomach, NOS Procedures: H Pylori (initial) PHYSICIAN & INSTITUTION [place] [address] SPECIMEN INFORMATION: Tissue Source: B - Antrum biopsy Clinical Info: Epigastric abdomen pain, functional diarrhea Specimen Number: [id number] CPT code: 88499 METHODOLOGY: Deparaffinized sections of prefer/formalin-fixed tissue or PAP/DQ stained slides are incubated with monoclonal/polyclonal antibodies/oligonucleotide probes. Localization is made via biotin free immunoperoxidase method. Appropriate controls are performed and reacted as expected. Results on target cell population are indicated in the following table: RESULTS: ANTIBODY / CLONE RESULT Block B H Pylori (polyclonal) negative These tests were developed and their performance characteristics determined by [facility]. They may not have been cleared or approved by the U.S. Food and Drug Administration. The FDA has determined that such clearance or approval is not necessary. INTERPRETATION: B. Antrum biopsy: Immunohistochemical stain with appropriate control is negative for Helicobacter organisms. CE:deanne 10/16/18
--- NOTE | 2018-10-15 09:30 | EGD_PTH ---
PATIENT: KAROL HOYOS LOC: EN U#:[id number] AGE/SX: 58/F ROOM: RE10/15/[address]: [address]. Tomas Newby MD : 1960 BED: DIS: 10/15/2018 SPEC #: [id number] RECD: 10/15/18 10:28 STATUS: RICCO TANIA #: [id number] RUBIO: 10/15/18 09:[address]: Tomas Newby DEPT: SURGICAL PATHOLOGY RECD BY: Joey Doran ENTERED: 10/15/18 13:03 SP TYPE: EGD BIOPSY OTHR DR: Dr. Juan Jose Brenner MD Tissues: A - Duodenum, NOS B - Gastric mucous membrane C - Ileum, NOS D - COLON BIOPSY Procedures: Trichrome (control) Special Stain Group II Surgery Specimen Level IV HEADER OPERATION: Colonoscopy, EGD ([facility]) PRE-OP DIAGNOSIS: Epigastric abdomen pain, functional diarrhea TISSUE SUBMITTED: A - Duodenal biopsy, B - Antrum biopsy for H. pylori and path, C - Terminal ileum biopsy D - Random colon biopsies MICROSCOPIC DIAGNOSIS A. Duodenal biopsy: A fragment of small intestinal mucosa, no pathologic diagnosis. B. Antrum, biopsy: Mild gastritis. A few minute lymphoid aggregates, favor benign. See microscopic description and comment. C. Terminal ileum, biopsy: Fragments of small intestinal mucosa, no pathologic diagnosis. D. Colon, random biopsy: Fragments of colonic mucosa with changes suspicious for microscopic (lymphocytic) and collagenous colitis. See comment. SJ:deanne 10/16/18 COMMENT B. The results of immunohistochemistry for Helicobacter pylori will be reported separately ([id number]). D. The specimen show focal mild increase of intraepithelial lymphocytes. Trichrome stain with matched control was used in the evaluation of the specimen and shows focal minimal thickening of subepithelial collagen band. Correlation with clinical, endoscopic findings and appropriate follow up are necessary. Case has been reviewed in consultation with Dr. Velazquez who concurs with the above diagnosis. IDC:CE MICROSCOPIC DESCRIPTION Slides are reviewed. B. The specimen shows fragments of gastric mucosa with chronic inflammatory cell infiltrates in the lamina propria consisting of lymphocytes and plasma cells, consistent with mild chronic gastritis. A few minute lymphoid aggregates are noted, favor benign. GROSS DESCRIPTION A - Received in fixative is one container labeled with the patient's name and designated duodenal biopsy. The specimen consists of one irregular fragment of light villarreal soft tissue that measures 0.4 x 0.4 x 0.1 cm. The specimen is totally submitted in one cassette. B - Received in fixative is one container labeled with the patient's name and designated antrum biopsy. The specimen consists of one irregular fragment of light villarreal soft tissue that measures 0.7 x 0.2 x 0.1 cm. The specimen is totally submitted in one cassette. C - Received in fixative is one container labeled with the patient's name and designated terminal ileum biopsy. The specimen consists of multiple irregular fragments of light villarreal soft tissue that in aggregate measure 1 x 0.1 x 0.1 cm. The specimen is totally submitted in one cassette. D - Received in fixative is one container labeled with the patient's name and designated random colon biopsy. The specimen consists of multiple irregular fragments of light villarreal soft tissue that in aggregate measure 2 x 0.6 x 0.1 cm. The specimen is totally submitted in one cassette. / SJ:rg 10/15/18 TC:5 CPT: 69607 x4, 83196
[2018-10-15 09:53] VITALS: BP 109/73; BP 117/76; PULSE 83; RESP 18; TEMP 36.6; O2SAT 100
--- NOTE | 2018-10-15 09:54 | OP.ENDO_ITS ---
10/15/2018 Juan Jose Brenner MD [address] [place] [address] Re : Upper GI endoscopy procedure for Karie Loo Dear Dr. Brenner This procedure was performed on Monday, October 15, 2018. My impressions and recommendations are as follows: Impressions : - Z-line regular, 39 cm from the incisors. - Normal esophagus. - Erythematous mucosa in the prepyloric region of the stomach. Biopsied. - Normal examined duodenum. Biopsied. Recommendations : - Await pathology results. - Repeat upper endoscopy (date not yet determined) for surveillance. - Return to my office in 1 week. - Continue present medications. My findings are described in the full procedure note, which is enclosed. If I can be of further assistance, please feel free to contact me at Doctor phone number(s): , Fax: [phone], Work: . Sincerely, MD Tomas Schaefer MD 10/15/2018 9:54:35 AM This report has been signed electronically.
[2018-10-15 09:58] VITALS: BP 106/76; BP 117/76; PULSE 84; RESP 17; O2SAT 100
--- NOTE | 2018-10-15 09:58 | OP.ENDO_ITS ---
10/15/2018 Juan Jose Brenner MD [address] [place] [address] Re : Colonoscopy procedure for Karie Loo Dear Dr. Brenner This procedure was performed on Monday, October 15, 2018. My impressions and recommendations are as follows: Impressions : - The examined portion of the ileum was normal. Biopsied. - Granularity in the entire examined colon. Biopsied. - The examination was otherwise normal. Recommendations : - Discharge patient to home. - Resume previous diet. - Continue present medications. - Await pathology results. - Repeat colonoscopy at appointment to be scheduled for surveillance based on pathology results. - Return to my office in 1 week. My findings are described in the full procedure note, which is enclosed. If I can be of further assistance, please feel free to contact me at Doctor phone number(s): , Fax: [phone], Work: . Sincerely, MD Tomas Schaefer MD 10/15/2018 9:58:01 AM This report has been signed electronically.
[2018-10-15 10:03] VITALS: BP 116/76; BP 117/76; PULSE 83; RESP 18; O2SAT 99
[2018-10-15 10:08] VITALS: BP 117/76; BP 118/78; PULSE 79; RESP 17; TEMP 36.6; O2SAT 100
== END 2018-10-15 10:54 | disposition home or self-care (01) ==
LOC: EN 08:21 → AC 08:21
PROVIDERS: Family Provider Family Medicine Geriatric Medicine; PCP Family Medicine Geriatric Medicine; Referring Provider Family Medicine Geriatric Medicine; Visit Provider Surgery
PROC: 0DJD8ZZ Inspection of Lower Intestinal Tract, Via Natural or Artificial Opening Endoscopic (ICD-10-PCS; CPT 45378; principal; 2018-10-15 09:25)
DX: K29.70 Gastritis, unspecified, without bleeding (principal); K59.1 Functional diarrhea; R10.13 Epigastric pain; K52.832 Lymphocytic colitis; I10 Essential (primary) hypertension; E55.9 Vitamin D deficiency, unspecified; I73.00 Raynaud's syndrome without gangrene; M19.90 Unspecified osteoarthritis, unspecified site; F32.9 Major depressive disorder, single episode, unspecified; F41.9 Anxiety disorder, unspecified; Z78.0 Asymptomatic menopausal state; Z79.899 Other long term (current) drug therapy
CPT/HCPCS: 43239; 45380; 88305; 88313; 88342; J7120; J1610

== ENCOUNTER → 2019-01-26 | Outpatient (CLI) | payer BC, SELFPAY ==
[2019-01-26 17:21] LABS: Absolute Lymphocyte Count 1.81 X10^3/ul (0.83-4.51); Absolute Neutrophil Count 2.4 X10^3/uL (2.0-7.7); Basophil# 0.01 X10^3/uL; Basophil% 0.2 % (0-1); Eosinophil# 0.02 X10^3/uL; Eosinophils% 0.4 % (0-5); Hematocrit 40.5 % (37-47); Hemoglobin 13.3 g/dl (12.0-15.0); Lymphocyte # 1.81 X10^3/ul (4.0); Lymphocyte % 39.5 % (19-41); Mean Corp Hgb Conc 32.8 g/gl (32-36); Mean Corpuscular Hgb 29.8 pg (27.0-32.0); Mean Corpuscular Volume 90.8 fL (81-99); Mean Platelet Vol. 9.9 fl (6.2-12.0); Monocyte# 0.31 X10^3/uL; Monocyte% 6.8 % (0-10); Neutrophil # 2.42 X10^3/uL (2.7-7.7); Neutrophil % 52.9 % (47-70); Platelet Count 279 K/mm3 (150-450); RBC Distribution Width CV 14.2 % (11.6-14.6); RBC Distribution Width SD 46.9 fl (35.1-43.9); Red Blood Count 4.46 M/mm3 (4.2-5.4); White Blood Count 4.6 K/mm3 (4.4-11.0)
[2019-01-26 17:32] LABS: POSITIVE COUNT NO; POSITIVE DIFFERENTIAL NO; POSITIVE MORPHOLOGY NO
[2019-01-26 17:42] LABS: Vitamin D,25 Hydroxy 50.5 ng/mL (29.95-100.01)
[2019-01-26 17:47] LABS: ALB/GLOB Ratio 1.1 RATIO (0.9-2.4); AST(SGOT) 22 U/L (15-37); Alanine Aminotransfer ALT/SGPT 25 U/L (13-56); Alkaline Phosphatase 78 U/L (45-117); Anion Gap 5 (5-15); BUN 20 mg/dL (7-18); BUN/Creat Ratio 21.5 RATIO (10-20); Calcium,Total 8.9 mg/dL (8.5-10.1); Chloride 102 mmol/L (98-107); Creatinine, Serum 0.93 mg/dL (0.55-1.02); EST Glomerular Filtration Rate 66 mL/min (>60); Est Glom Filt Rate - Afr Amer 80 mL/min (>60); Globulin 3.7 g/dL (2.2-4.2); Glucose 77 mg/dL (74-106); Potassium 3.6 mmol/L (3.5-5.1); Protein, Total 7.7 g/dL (6.4-8.2); Sodium Level 135 mmol/L (136-145); Thyroid Stim Hormone (TSH) 0.91 uIU/mL (0.358-3.74)
== END | disposition home or self-care (01) ==
LOC: POLAB3 10:58
PROVIDERS: Family Provider Family Medicine Geriatric Medicine; PCP Family Medicine Geriatric Medicine; Visit Provider Family Medicine Geriatric Medicine
DX: I10 Essential (primary) hypertension (principal); E55.9 Vitamin D deficiency, unspecified
CPT/HCPCS: 36415; 80053; 82306; 84443; 85025

== ENCOUNTER 2019-01-31 20:48 | Emergency (ER) | payer BC, SELFPAY ==
[2019-01-31 20:49] VITALS: BP 145/84; PULSE 99; RESP 16; TEMP 36.6; O2SAT 100; BMI 20.5
--- NOTE | 2019-01-31 21:09 | ED.DCSUM_ITS ---
History of Present Illness Chief Complaint: Bite Informant: Patient Onset: Yesterday Current Severity: Mild Maximum Severity: Mild Narrative: Patient noticed a spider on her right hand while mowing the lawn yesterday today she woke up and had some redness on the dorsum of her hand. She has no fever chills did not see any kind streaking. She is able to open and close her hand. Pain is mild and achy. Past Medical History - Allergies and Home Meds Allergies/Adverse Reactions: Allergies calcitonin Allergy (Intermediate, Verified 01/31/19 20:53) nausea acetaminophen [From Vicodin] Allergy (Verified 01/31/19 20:53) Itching chlordiazepoxide Allergy (Verified 01/31/19 20:53) Itching clidinium [Clidinium] Allergy (Verified 01/31/19 20:53) Itching dicyclomine Allergy (Verified 01/31/19 20:53) Itching escitalopram oxalate [From Lexapro] Allergy (Verified 01/31/19 20:53) Unknown fluoxetine HCl [From Prozac] Allergy (Verified 01/31/19 20:53) Unknown hydrocodone [From Vicodin] Allergy (Verified 01/31/19 20:53) Itching medroxyprogesterone Allergy (Verified 01/31/19 20:53) Unknown metoprolol succinate [From Toprol XL] Allergy (Verified 01/31/19 20:53) Unknown paroxetine HCl [From Paxil] Allergy (Verified 01/31/19 20:53) Unknown eletriptan HBr [From Relpax] Adverse Reaction (Verified 01/31/19 20:53) Chest tightness ketorolac tromethamine [From Toradol] Adverse Reaction (Verified 01/31/19 20:53) Chest tightness medroxyprogesterone acetate [From Provera] Adverse Reaction (Verified 01/31/19 20:53) Nausea metronidazole [From Flagyl] Adverse Reaction (Verified 01/31/19 20:53) Nausea norethindrone Adverse Reaction (Verified 01/31/19 20:53) Nausea prednisone Adverse Reaction (Verified 01/31/19 20:53) Chest tightness Primary Care Physician: Juan Jose Brenner Chi, MD [Primary Care Provider] - Prior records reviewed: Yes Past Medical History: None Surgical History: noncontributory, - - bladder suspension surgery. Smoking Status: Never smoker - Family History Paternal Family History: Family History (Last Reviewed 10/22/18 @ 09:28 by Karie Dorsey) Grandmother Diabetes Father Heart disease Family History: Reports: Heart Disease Review of Systems General: Denies: Fever Musculoskeletal: Reports: - - Hand swelling as in HPI Skin: Reports: Rash Neurological: Denies: Weakness, Parasthesia Hematologic: Denies: Easy bruising, Easy bleeding Physical Exam Vital Signs/Narrative: Vital Signs Temp Pulse Resp BP Pulse Ox 01/31/19 20:49 98 F 99 16 145/84 H 100 General: Well nourished, Well developed Cardiovascular: Regular rate, Regular rhythm Respiratory: No distress, CTA bilaterally Abdomen: Soft, Nontender Extremities: - - There is slight swelling of the dorsum of the right hand, no abscess, full range of motion and normal strength. There is slight erythema and slight calor Skin: - - As above Neurological: Normal Sensation Psychological: Normal affect Diagnostic/Tx/Re-eval - Medical Decision Making Patient appears well, she has a localized infection I will start with outpatient antibiotics I believe she is stable for discharge no further testing is needed. ED Disposition - Plan for ED Patient: [facility] Diagnosis: Cellulitis Instructions: SPIDER BITE, Non-Poisonous Prescriptions: Clindamycin [Cleocin] 300 mg PO TID #60 cap Prescription Printed Referrals: Juan Jose Brenner Chi, MD [Primary Care Provider] - 2 Days
[2019-01-31] MEDS: Clindamycin HCl 150 MG Capsule 300 MG PO (21:14)
== END 2019-01-31 21:28 | disposition home or self-care (01) ==
LOC: ED 21:20
PROVIDERS: Emergency Provider Emergency Medicine; Family Provider Family Medicine Geriatric Medicine; PCP Family Medicine Geriatric Medicine
DX: T63.301A Toxic effect of unspecified spider venom, accidental (unintentional), initial encounter (principal); L03.113 Cellulitis of right upper limb; Y92.9 Unspecified place or not applicable
CPT/HCPCS: 99282

== ENCOUNTER → 2019-06-26 14:29 | Outpatient (CLI) | payer BC, SELFPAY ==
--- NOTE | 2019-06-26 14:31 | BI_ITS ---
MAMMOGRAPHY - BILATERAL SCREENING REASON FOR EXAM: Female, 58 years old. Routine annual screening examination. PERTINENT HISTORY: Non-contributory. TECHNIQUE: Digital bilateral breast elian (3D mammographic acquisition) in the CC and MLO projections. 2-D mediolateral oblique (MLO) and craniocaudad (CC) views of both breasts were obtained. CAD: Full Field Digital Mammography with Computer Added Detection was performed. COMPARISON: Comparison is made with prior examination dated June 25, 2018 and June 03, 2017. FINDINGS: Breast Composition: The breasts are heterogeneously dense, which may obscure small masses. There are no dominant masses or suspicious calcifications. No other significant abnormalities are identified. There has been no significant change since the prior study. BI/SCREEN MAMM (CAD) W/ELIAN BILAT IMPRESSION: Stable bilateral screening mammogram. Yearly follow-up mammogram recommended. (A) ASSESSMENT CATEGORY: BIRADS Category 1: Negative. A letter regarding these results will be sent to the patient by the facility within 30 days. Approximately 10% of breast cancers are not detected by mammography. A normal mammogram should not delay biopsy of a clinically suspicious abnormality. [id number] Electronically Signed: Terry Mccrary, at 15:20 EST , Service support ,
== END ==
PROVIDERS: Family Provider Family Medicine Geriatric Medicine; PCP Family Medicine Geriatric Medicine; Referring Provider Obstetrics & Gynecology; Visit Provider Obstetrics & Gynecology
DX: Z12.31 Encounter for screening mammogram for malignant neoplasm of breast (principal)
CPT/HCPCS: 77063; 77067

== ENCOUNTER → 2019-07-27 14:08 | Outpatient (CLI) | payer BC, SELFPAY ==
--- NOTE | 2019-07-27 14:11 | RAD_ITS ---
STUDY: X-RAY - PELVIS AND RIGHT HIP REASON FOR EXAM: Female, 59 years old. RIGHT HIP PAIN X2 WEEKS. NO KNOWN INJURY. TECHNIQUE: 3 views of the pelvis and hip. COMPARISON: None. FINDINGS: There is a non-specific bowel gas pattern. Normal visualized soft tissue structures. There is narrowing with cortical sclerosis and osteophyte formation of the sacroiliac joint consistent with mild degenerative osteoarthritic changes. Normal bilateral superior and inferior pubic rami. Normal pubic symphysis. Normal bilateral ischial tuberosities. Normal visualized femoral head. Normal acetabulum. There is mild to moderate articular joint space narrowing of the hip. RAD/HIP, UNI W/ Pelvis 2-3 Views IMPRESSION: Mild to moderate degenerative disease as described above, otherwise normal x-ray examination of the pelvis and hip. Electronically Signed: Kadie Casillas MD at 2:31 EST , Service support ,
== END ==
PROVIDERS: Family Provider Family Medicine Geriatric Medicine; PCP Family Medicine Geriatric Medicine; Referring Provider Family Medicine Geriatric Medicine; Visit Provider Family Medicine Geriatric Medicine
DX: M25.551 Pain in right hip (principal)
CPT/HCPCS: 73502

== ENCOUNTER → 2019-07-27 14:09 | Outpatient (CLI) | payer BC, SELFPAY ==
[2019-07-27 17:07] LABS: Absolute Neutrophil Count 2.2 X10^3/uL (2.0-7.7); Basophil# 0.02 X10^3/uL; Basophil% 0.4 % (0-1); Eosinophil# 0.05 X10^3/uL; Eosinophils% 1.1 % (0-5); Hematocrit 37.1 % (37-47); Hemoglobin 12.2 g/dL (12.0-15.0); Lymphocyte % 43.1 % (19-41); Mean Corp Hgb Conc 32.9 g/dL (32-36); Mean Corpuscular Volume 94.4 fL (81-99); Mean Platelet Vol. 9.2 fl (6.2-12.0); Monocyte# 0.34 X10^3/uL; Monocyte% 7.3 % (0-10); NRBC Flagged by Analyzer 0 % (0-5); Neutrophil # 2.22 X10^3/uL (2.7-7.7); Neutrophil % 47.9 % (47-70); Platelet Count 266 K/mm3 (150-450); RBC Distribution Width SD 44.9 fl (35.1-43.9); Red Blood Count 3.93 M/mm3 (4.2-5.4); White Blood Count 4.6 K/mm3 (4.4-11.0)
[2019-07-27 17:31] LABS: Vitamin D,25 Hydroxy 47.4 ng/mL (29.95-100.01)
[2019-07-27 17:35] LABS: ALB/GLOB Ratio 1.1 RATIO (0.9-2.4); AST(SGOT) 22 U/L (15-37); Alanine Aminotransfer ALT/SGPT 28 U/L (13-56); Albumin, Serum 3.9 g/dL (3.2-5.0); Alkaline Phosphatase 65 U/L (45-117); Anion Gap 2 (5-15); BUN 8 mg/dL (7-18); BUN/Creat Ratio 8.9 RATIO (10-20); Calcium,Total 8.9 mg/dL (8.5-10.1); Chloride 108 mmol/L (98-107); EST Glomerular Filtration Rate 69 mL/min (>60); Est Glom Filt Rate - Afr Amer 84 mL/min (>60); Globulin 3.5 g/dL (2.2-4.2); Glucose 84 mg/dL (74-106); Potassium 3.6 mmol/L (3.5-5.1); Protein, Total 7.4 g/dL (6.4-8.2); Sodium Level 140 mmol/L (136-145); Thyroid Stim Hormone (TSH) 0.72 uIU/mL (0.358-3.74)
== END ==
PROVIDERS: Family Provider Family Medicine Geriatric Medicine; PCP Family Medicine Geriatric Medicine; Visit Provider Family Medicine Geriatric Medicine
DX: E55.9 Vitamin D deficiency, unspecified (principal); I10 Essential (primary) hypertension
CPT/HCPCS: 36415; 80053; 82306; 84443; 85025

== ENCOUNTER → 2020-01-28 15:32 | Outpatient (CLI) | payer BC, SELFPAY ==
[2020-01-28 15:52] LABS: Absolute Neutrophil Count 3.6 X10^3/uL (2.0-7.7); Basophil# 0.03 X10^3/uL; Basophil% 0.5 % (0-1); Eosinophil# 0.06 X10^3/uL; Eosinophils% 1.1 % (0-5); Hematocrit 38.7 % (37-47); Hemoglobin 13.1 g/dL (12.0-15.0); Lymphocyte % 28.1 % (19-41); Mean Corp Hgb Conc 33.9 g/dL (32-36); Mean Corpuscular Hgb 32.1 pg (27.0-32.0); Mean Corpuscular Volume 94.9 fL (81-99); Mean Platelet Vol. 9.7 fl (6.2-12.0); NRBC Flagged by Analyzer 0 % (0-5); Neutrophil # 3.59 X10^3/uL (2.7-7.7); Neutrophil % 63.1 % (47-70); Platelet Count 304 K/mm3 (150-450); RBC Distribution Width CV 12.4 % (11.6-14.6); RBC Distribution Width SD 43.6 fl (35.1-43.9); Red Blood Count 4.08 M/mm3 (4.2-5.4); White Blood Count 5.7 K/mm3 (4.4-11.0)
[2020-01-28 16:14] LABS: Vitamin D,25 Hydroxy 63.6 ng/mL
[2020-01-28 16:30] LABS: ALB/GLOB Ratio 1.1 RATIO (0.9-2.4); AST(SGOT) 24 U/L (15-37); Alanine Aminotransfer ALT/SGPT 31 U/L (13-56); Albumin, Serum 3.9 g/dL (3.2-5.0); Alkaline Phosphatase 84 U/L (45-117); Anion Gap 5 (5-15); BUN 21 mg/dL (7-18); BUN/Creat Ratio 25.6 RATIO (10-20); Calcium,Total 8.6 mg/dL (8.5-10.1); Chloride 105 mmol/L (98-107); Creatinine, Serum 0.82 mg/dL (0.55-1.02); EST Glomerular Filtration Rate 76 mL/min (>60); Est Glom Filt Rate - Afr Amer 92 mL/min (>60); Globulin 3.6 g/dL (2.2-4.2); Glucose 104 mg/dL (74-106); Potassium 3.4 mmol/L (3.5-5.1); Protein, Total 7.5 g/dL (6.4-8.2); Sodium Level 137 mmol/L (136-145); Thyroid Stim Hormone (TSH) 0.92 uIU/mL (0.358-3.74)
== END ==
PROVIDERS: PCP Family Medicine Geriatric Medicine; Visit Provider Family Medicine Geriatric Medicine
DX: E55.9 Vitamin D deficiency, unspecified (principal); I10 Essential (primary) hypertension
CPT/HCPCS: 36415; 80053; 82306; 84443; 85025

== ENCOUNTER → 2020-02-04 17:48 | Outpatient (CLI) | payer BC, SELFPAY | PROVIDERS: PCP Family Medicine Geriatric Medicine; Referring Provider Family Medicine Geriatric Medicine; Visit Provider Family Medicine Geriatric Medicine | DX: J06.9 Acute upper respiratory infection, unspecified (principal) | CPT/HCPCS: 87635; G2023; U0003 ==

== ENCOUNTER → 2020-02-09 11:52 | Outpatient (CLI) | payer BC, SELFPAY ==
[2020-02-09 12:49] LABS: Anion Gap 5 (5-15); BUN 14 mg/dL (7-18); BUN/Creat Ratio 16.1 RATIO (10-20); Calcium,Total 8.5 mg/dL (8.5-10.1); Chloride 108 mmol/L (98-107); Creatinine, Serum 0.87 mg/dL (0.55-1.02); EST Glomerular Filtration Rate 71 mL/min (>60); Est Glom Filt Rate - Afr Amer 86 mL/min (>60); Glucose 84 mg/dL (74-106); Potassium 3.4 mmol/L (3.5-5.1); Sodium Level 140 mmol/L (136-145)
== END ==
PROVIDERS: PCP Family Medicine Geriatric Medicine; Visit Provider Family Medicine Geriatric Medicine
DX: E87.6 Hypokalemia (principal)
CPT/HCPCS: 36415; 80048

== ENCOUNTER → 2020-02-17 13:54 | Outpatient (CLI) | payer BC, SELFPAY ==
[2020-02-17 18:25] LABS: Anion Gap 6 (5-15); BUN 13 mg/dL (7-18); BUN/Creat Ratio 15.8 RATIO (10-20); Calcium,Total 8.9 mg/dL (8.5-10.1); Chloride 106 mmol/L (98-107); Creatinine, Serum 0.82 mg/dL (0.55-1.02); EST Glomerular Filtration Rate 76 mL/min (>60); Est Glom Filt Rate - Afr Amer 92 mL/min (>60); Glucose 77 mg/dL (74-106); Potassium 3.7 mmol/L (3.5-5.1); Sodium Level 140 mmol/L (136-145)
== END ==
PROVIDERS: PCP Family Medicine Geriatric Medicine; Visit Provider Family Medicine Geriatric Medicine
DX: E87.6 Hypokalemia (principal)
CPT/HCPCS: 36415; 80048

== ENCOUNTER → 2020-04-26 15:26 | Outpatient (CLI) | payer BC, SELFPAY ==
--- NOTE | 2020-04-26 15:33 | BD_ITS ---
STUDY: DUAL ENERGY X-RAY ABSORPTIOMETRY / DXA REASON FOR EXAM: Female, 59 years old. 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 COMPARISON: None. FINDINGS: Lumbar Spine (L1-L4): g/cm2 (1.022) / T-score (-1.3) / Z-score (-0.3) Findings are suggestive of osteopenia with a low fracture risk. Left Femur Total: g/cm2 (0.757) / T-score (-2.0) / Z-score (-1.2) Left Femoral Neck: g/cm2 (0.717) / T-score (-2.3) / Z-score (-1.2) Right Femur Total: g/cm2 (0.787) / T-score (-1.8) / Z-score (-1.0) Right Femoral Neck: g/cm2 (0.804) / T-score (-1.7) / Z-score (-0.6) BD/Dexa Bone Density Study IMPRESSION: The patient is considered osteopenic as outlined below according to World Ino Organization (WHO) criteria with a high fracture risk. Reference Information: The T-score is the number of standard deviations above or below the standard which is normal for young adults at their peak bone mineral density. The World Health Organization (WHO) interprets the T-scores as follows: Above -1 Normal bone density Between -1 and -2.5 Osteopenia Equal to / or below -2.5 Osteoporosis As a practical clinical guideline, osteopenia may be graded as follows: Mild -1 through -1.5 Moderate -1.6 through -2.0 Severe -2.1 through -2.4 The Z-score is the number of standard deviations above or below age-matched controls. A Z-score of less than -1.5 would be considered abnormal. References: 1. NIH Osteoporosis and Related Bone Diseases www osteo.org 2. International Society for Clinical Densitometry www iscd.org 3. National Osteoporosis Foundation www nof.org Electronically Signed: Terry Mccrary, at 15:28 EDT , Service support ,
== END ==
PROVIDERS: PCP Family Medicine Geriatric Medicine
DX: M85.89 Other specified disorders of bone density and structure, multiple sites (principal)
CPT/HCPCS: 77080

== ENCOUNTER → 2020-06-07 17:32 | Outpatient (CLI) | payer BC, SELFPAY | PROVIDERS: PCP Family Medicine Geriatric Medicine; Referring Provider Family Medicine Geriatric Medicine; Visit Provider Family Medicine Geriatric Medicine | DX: U07.1 COVID-19 (principal); R68.83 Chills (without fever) | CPT/HCPCS: 87633; 87635; C9803; U0003 ==

== ENCOUNTER → 2020-07-19 17:00 | Outpatient (CLI) | payer OTHER, SELFPAY ==
--- NOTE | 2020-07-19 16:19 | BI_ITS ---
MAMMOGRAPHY - BILATERAL SCREENING REASON FOR EXAM: Female, 59 years old. Routine annual screening examination. PERTINENT HISTORY: Non-contributory. TECHNIQUE: Digital bilateral breast elian (3D mammographic acquisition) in the CC and MLO projections. 2-D mediolateral oblique (MLO) and craniocaudad (CC) views of both breasts were obtained. CAD: Full Field Digital Mammography with Computer Added Detection was performed. COMPARISON: Comparison is made with prior examination dated 06/26/2019 and 06/25/2018 FINDINGS: Breast Composition: The breasts are heterogeneously dense, which may obscure small masses. There are no dominant masses or suspicious calcifications. No other significant abnormalities are identified. There has been no significant change since the prior study. BI/SCREEN MAMM (CAD) W/ELIAN BILAT IMPRESSION: Stable bilateral screening mammogram. Yearly follow-up mammogram recommended. (A) ASSESSMENT CATEGORY: BIRADS Category 1: Negative. A letter regarding these results will be sent to the patient by the facility within 30 days. Approximately 10% of breast cancers are not detected by mammography. A normal mammogram should not delay biopsy of a clinically suspicious abnormality. [id number] Electronically Signed: Terry Mccrary, at 8:27 EST , Service support ,
== END ==
PROVIDERS: PCP Family Medicine Geriatric Medicine; Referring Provider Student in an Organized Health Care Education/Training Program; Visit Provider Student in an Organized Health Care Education/Training Program
DX: Z12.31 Encounter for screening mammogram for malignant neoplasm of breast (principal)
CPT/HCPCS: 77063; 77067

== ENCOUNTER → 2020-07-28 | Outpatient (CLI) | payer OTHER, SELFPAY ==
[2020-08-03 08:59] LABS: HPV APTIMA, High Risk Negative (Negative)
== END | disposition home or self-care (01) ==
LOC: LABSPEC 16:46
PROVIDERS: PCP Family Medicine Geriatric Medicine; Visit Provider Student in an Organized Health Care Education/Training Program
DX: Z12.4 Encounter for screening for malignant neoplasm of cervix (principal)
CPT/HCPCS: 87624; 88175; G0145

== ENCOUNTER → 2020-08-04 16:58 | Outpatient (CLI) | payer OTHER, SELFPAY ==
[2020-08-04 17:16] LABS: Absolute Lymphocyte Count 2.79 X10^3/uL (0.83-4.51); Absolute Neutrophil Count 3.4 X10^3/uL (2.0-7.7); Basophil# 0.03 X10^3/uL; Basophil% 0.4 % (0-1); Eosinophil# 0.01 X10^3/uL; Eosinophils% 0.1 % (0-5); Hematocrit 38.7 % (37-47); Hemoglobin 13.3 g/dL (12.0-15.0); Lymphocyte # 2.79 X10^3/ul (4.0); Lymphocyte % 41.5 % (19-41); Mean Corp Hgb Conc 34.4 g/dL (32-36); Mean Platelet Vol. 8.9 fl (6.2-12.0); Monocyte# 0.48 X10^3/uL; Monocyte% 7.1 % (0-10); NRBC Flagged by Analyzer 0 % (0-5); Neutrophil # 3.41 X10^3/uL (2.7-7.7); Neutrophil % 50.8 % (47-70); Platelet Count 275 K/mm3 (150-450); RBC Distribution Width CV 12.3 % (11.6-14.6); RBC Distribution Width SD 42.2 fl (35.1-43.9); Red Blood Count 4.16 M/mm3 (4.2-5.4); White Blood Count 6.7 K/mm3 (4.4-11.0)
[2020-08-04 17:49] LABS: Vitamin D,25 Hydroxy 51.1 ng/mL
[2020-08-04 17:56] LABS: AST(SGOT) 24 U/L (15-37); Alanine Aminotransfer ALT/SGPT 28 U/L (13-56); Alkaline Phosphatase 83 U/L (45-117); Anion Gap 3 (5-15); BUN 18 mg/dL (7-18); BUN/Creat Ratio 20.3 RATIO (10-20); Calcium,Total 8.8 mg/dL (8.5-10.1); Chloride 105 mmol/L (98-107); Creatinine, Serum 0.89 mg/dL (0.55-1.02); EST Glomerular Filtration Rate 69 mL/min (>60); Est Glom Filt Rate - Afr Amer 84 mL/min (>60); Glucose 83 mg/dL (74-106); Potassium 3.8 mmol/L (3.5-5.1); Sodium Level 137 mmol/L (136-145); Thyroid Stim Hormone (TSH) 1.54 uIU/mL (0.358-3.74)
== END ==
PROVIDERS: PCP Family Medicine Geriatric Medicine; Visit Provider Family Medicine Geriatric Medicine
DX: I10 Essential (primary) hypertension (principal); E55.9 Vitamin D deficiency, unspecified
CPT/HCPCS: 36415; 80053; 82306; 84443; 85025

== ENCOUNTER 2020-09-23 08:00 | Outpatient (RCR) | payer OTHER, SELFPAY ==
[2020-09-23] MEDS: COVID-19 VACC, MRNA(PFIZER)/PF 30 MCG/0.3 ML SYRINGE IM (17:30)
[2020-10-14] MEDS: COVID-19 VACC, MRNA(PFIZER)/PF 30 MCG/0.3 ML SYRINGE IM (17:09)
== END 2020-12-20 23:59 ==
LOC: IMMUN 08:00
PROVIDERS: PCP Family Medicine Geriatric Medicine; Visit Provider Family Medicine
DX: Z23 Encounter for immunization (principal)
CPT/HCPCS: 0001A; 0002A; 91300

== ENCOUNTER → 2021-02-01 15:49 | Outpatient (CLI) | payer OTHER, SELFPAY ==
[2021-02-01 17:06] LABS: Absolute Lymphocyte Count 2.33 X10^3/uL (0.83-4.51); Absolute Neutrophil Count 3.7 X10^3/uL (2.0-7.7); Basophil# 0.02 X10^3/uL; Basophil% 0.3 % (0-1); Hemoglobin 12.9 g/dL (12.0-15.0); Lymphocyte # 2.33 X10^3/ul (0.83-4.51); Mean Corp Hgb Conc 33.9 g/dL (32-36); Mean Corpuscular Hgb 31.4 pg (27.0-32.0); Mean Corpuscular Volume 92.5 fL (81-99); Mean Platelet Vol. 9.2 fl (6.2-12.0); Monocyte# 0.57 X10^3/uL; Monocyte% 8.6 % (0-10); NRBC Flagged by Analyzer 0 % (0-5); Neutrophil # 3.73 X10^3/uL (2.7-7.7); Neutrophil % 55.9 % (47-70); Platelet Count 291 K/mm3 (150-450); RBC Distribution Width CV 12.3 % (11.6-14.6); RBC Distribution Width SD 42.1 fl (35.1-43.9); Red Blood Count 4.11 M/mm3 (4.2-5.4); White Blood Count 6.7 K/mm3 (4.4-11.0)
--- NOTE | 2021-02-01 17:18 | RAD_ITS ---
STUDY: X-RAY - ABDOMEN/PELVIS REASON FOR EXAM: Female, 60 years old. Lymphocytic colitis. TECHNIQUE: AP supine and upright views of the abdomen and pelvis. COMPARISON: None. FINDINGS: Normal visualized lung bases. There is an unremarkable bowel gas pattern. There is no demonstrated free abdominal air. The visualized liver, spleen and kidneys are grossly normal in size and morphology. Normal soft tissue structures. Normal visualized osseous structures. RAD/Abd Inc Decub and/or Erect IMPRESSION: Normal x-ray examination of the abdomen and pelvis. Electronically Signed: Terry Mccrary MD at 20:21 EDT , Service support ,
[2021-02-01 17:23] LABS: Vitamin D,25 Hydroxy 50.5 ng/mL
[2021-02-01 17:29] LABS: AST(SGOT) 28 U/L (15-37); Alanine Aminotransfer ALT/SGPT 32 U/L (13-56); Alkaline Phosphatase 75 U/L (45-117); Anion Gap 8 (5-15); BUN 16 mg/dL (7-18); BUN/Creat Ratio 17.4 RATIO (10-20); Calcium,Total 8.5 mg/dL (8.5-10.1); Chloride 102 mmol/L (98-107); Creatinine, Serum 0.92 mg/dL (0.55-1.02); EST Glomerular Filtration Rate 67 mL/min (>60); Est Glom Filt Rate - Afr Amer 81 mL/min (>60); Globulin 3.9 g/dL (2.2-4.2); Glucose 91 mg/dL (74-106); Potassium 3.7 mmol/L (3.5-5.1); Protein, Total 7.9 g/dL (6.4-8.2); Sodium Level 137 mmol/L (136-145); Thyroid Stim Hormone (TSH) 0.73 uIU/mL (0.358-3.74)
== END ==
PROVIDERS: PCP Family Medicine Geriatric Medicine; Visit Provider Family Medicine Geriatric Medicine
DX: K52.832 Lymphocytic colitis (principal); E55.9 Vitamin D deficiency, unspecified; I10 Essential (primary) hypertension
CPT/HCPCS: 36415; 74019; 80053; 82306; 84443; 85025

== ENCOUNTER → 2021-05-04 15:50 | Outpatient (CLI) | payer OTHER, SELFPAY ==
--- NOTE | 2021-05-04 16:00 | BD_ITS ---
STUDY: DUAL ENERGY X-RAY ABSORPTIOMETRY / DXA REASON FOR EXAM: Female, 60 years old. Z79.52. The patient is postmenopausal. TECHNIQUE: Bone Mineral Density (BMD) measurements of lumbar spine and bilateral hips were obtained. COMPARISON: Comparison is made with prior study dated 04/26/2020. FINDINGS: Lumbar Spine (L1-L4): g/cm2 (0.921) / T-score (-1.1) / Z-score (0.2) Findings are suggestive of osteopenia with a low fracture risk. Left Femur Total: g/cm2 (0.709) / T-score (-1.9) / Z-score (-1.0) Left Femoral Neck: g/cm2 (0.584) / T-score (-2.4) / Z-score (-1.2) Right Femur Total: g/cm2 (0.726) / T-score (-1.8) / Z-score (-0.9) Right Femoral Neck: g/cm2 (0.628) / T-score (-2.0) / Z-score (-0.8) The T-Scores on the most recent prior examination were: Lumbar Spine (L1-L4): There has been improvement of bone density since the previous examination. Left Femur Total: which represents an improvement of 1.6%. Right Femur Total: which represents a worsening of 0.1%. BD/Dexa Bone Density Study IMPRESSION: The patient is considered osteopenic as outlined below according to World Ino Organization (WHO) criteria with a high fracture risk. There has been improvement of bone density since the previous examination. Reference Information: The T-score is the number of standard deviations above or below the standard which is normal for young adults at their peak bone mineral density. The World Health Organization (WHO) interprets the T-scores as follows: Above -1 Normal bone density Between -1 and -2.5 Osteopenia Equal to / or below -2.5 Osteoporosis As a practical clinical guideline, osteopenia may be graded as follows: Mild -1 through -1.5 Moderate -1.6 through -2.0 Severe -2.1 through -2.4 The Z-score is the number of standard deviations above or below age-matched controls. A Z-score of less than -1.5 would be considered abnormal. References: 1. NIH Osteoporosis and Related Bone Diseases www osteo.org 2. International Society for Clinical Densitometry www iscd.org 3. National Osteoporosis Foundation www nof.org Electronically Signed: Terry Mccrary MD at 14:15 EDT , Service support ,
== END ==
PROVIDERS: PCP Family Medicine Geriatric Medicine
DX: Z79.52 Long term (current) use of systemic steroids (principal)
CPT/HCPCS: 77080

== ENCOUNTER 2021-08-02 15:59 | Outpatient (CLI) | payer BC, SELFPAY ==
[2021-08-02 16:22] LABS: Absolute Lymphocyte Count 1.82 X10^3/uL (0.83-4.51); Absolute Neutrophil Count 5.3 X10^3/uL (2.0-7.7); Basophil# 0.03 X10^3/uL; Basophil% 0.4 % (0-1); Hematocrit 35.5 % (37-47); Lymphocyte # 1.82 X10^3/ul (0.83-4.51); Lymphocyte % 22.9 % (19-41); Mean Corp Hgb Conc 33.8 g/dL (32-36); Mean Corpuscular Hgb 31.3 pg (27.0-32.0); Mean Corpuscular Volume 92.7 fL (81-99); Mean Platelet Vol. 8.7 fl (6.2-12.0); Monocyte# 0.77 X10^3/uL; Monocyte% 9.7 % (0-10); NRBC Flagged by Analyzer 0 % (0-5); Neutrophil % 66.7 % (47-70); Platelet Count 270 K/mm3 (150-450); RBC Distribution Width CV 12.6 % (11.6-14.6); RBC Distribution Width SD 43.1 fl (35.1-43.9); Red Blood Count 3.83 M/mm3 (4.2-5.4); White Blood Count 7.9 K/mm3 (4.4-11.0)
[2021-08-02 16:48] LABS: Vitamin D,25 Hydroxy 49.5 ng/mL
[2021-08-02 16:55] LABS: ALB/GLOB Ratio 1.1 RATIO (0.9-2.4); AST(SGOT) 35 U/L (15-37); Alanine Aminotransfer ALT/SGPT 38 U/L (13-56); Albumin, Serum 3.9 g/dL (3.2-5.0); Alkaline Phosphatase 76 U/L (45-117); Anion Gap 6 (5-15); BUN 12 mg/dL (7-18); BUN/Creat Ratio 13.2 RATIO (10-20); Calcium,Total 8.6 mg/dL (8.5-10.1); Chloride 99 mmol/L (98-107); Creatinine, Serum 0.91 mg/dL (0.55-1.02); EST Glomerular Filtration Rate 67 mL/min (>60); Est Glom Filt Rate - Afr Amer 82 mL/min (>60); Globulin 3.6 g/dL (2.2-4.2); Glucose 92 mg/dL (74-106); Potassium 3.8 mmol/L (3.5-5.1); Protein, Total 7.5 g/dL (6.4-8.2); Sodium Level 132 mmol/L (136-145); Thyroid Stim Hormone (TSH) 1.09 uIU/mL (0.358-3.74)
== END 2021-08-02 23:59 | disposition short-term general hospital (02) ==
LOC: POLAB3 16:00
PROVIDERS: PCP Family Medicine Geriatric Medicine; Visit Provider Family Medicine Geriatric Medicine
DX: E55.9 Vitamin D deficiency, unspecified (principal); I10 Essential (primary) hypertension
CPT/HCPCS: 36415; 80053; 82306; 84443; 85025

== ENCOUNTER 2021-08-22 16:23 | Outpatient (CLI) | payer BC, SELFPAY ==
--- NOTE | 2021-08-22 16:26 | BI_ITS ---
MAMMOGRAPHY - BILATERAL SCREENING REASON FOR EXAM: Female, 61 years old. Routine annual screening examination. PERTINENT HISTORY: Non-contributory. TECHNIQUE: Digital bilateral breast elian (3D mammographic acquisition) in the CC and MLO projections. 2-D mediolateral oblique (MLO) and craniocaudad (CC) views of both breasts were obtained. CAD: Full Field Digital Mammography with Computer Added Detection was performed. COMPARISON: Comparison is made with prior study dated 07/19/2020 and 06/26/2019. FINDINGS: Breast Composition: The breasts are heterogeneously dense, which may obscure small masses. There are no dominant masses or suspicious calcifications. No other significant abnormalities are identified. There has been no significant change since the prior study. BI/SCRN MAMM (CAD)W/ELIAN BILAT IMPRESSION: Stable bilateral screening mammogram. Yearly follow-up mammogram recommended. (A) ASSESSMENT CATEGORY: BIRADS Category 1: Negative. A letter regarding these results will be sent to the patient by the facility within 30 days. Approximately 10% of breast cancers are not detected by mammography. A normal mammogram should not delay biopsy of a clinically suspicious abnormality. [id number] Electronically Signed: Terry Mccrary MD at 8:36 EST ,
== END 2021-08-22 23:59 | disposition home or self-care (01) ==
LOC: OPBI 16:25
PROVIDERS: PCP Family Medicine Geriatric Medicine; Referring Provider Student in an Organized Health Care Education/Training Program; Visit Provider Student in an Organized Health Care Education/Training Program
DX: Z12.31 Encounter for screening mammogram for malignant neoplasm of breast (principal)
CPT/HCPCS: 77063; 77067

== ENCOUNTER → 2021-11-09 | Outpatient (CLI) | payer BC, SELFPAY ==
--- NOTE | 2021-11-10 05:41 | PFTCOMP ---
COMPLETE PULMONARY FUNCTION TEST INTERPRETATION Brief HPI: Patient is a 61 year old female, currently under the care of Dr. Brenner, who presents to [facility] for complete pulmonary function tests secondary to diagnosis of chronic cough. Respiratory therapist reports good effort and reproducible results. Interpretation: Forced expiration spirometry shows no large airways obstructive ventilatory defect with an FEV1 of 102% predicted. There is no significant bronchodilator response by strict ATS criteria. Spirograms are of good quality and plateau normally. The respiratory flow volume loop shows a normal pattern. Lung volumes by body plethysmography show an elevated total lung capacity at 5.14 L, 132% predicted. All other lung volumes are increased symmetrically. Diffusion capacity by carbon monoxide is normal at 91% predicted. The airway resistance is normal. No previous pulmonary function tests were available for review. Impression: These pulmonary function tests are within normal limits
== END | disposition home or self-care (01) ==
PROVIDERS: PCP Family Medicine Geriatric Medicine; Referring Provider Family Medicine Geriatric Medicine; Visit Provider Family Medicine Geriatric Medicine
DX: R05.3 Chronic cough (principal)
CPT/HCPCS: 94060; 94726; 94729

== ENCOUNTER 2022-02-07 14:47 | Outpatient (CLI) | payer BC, SELFPAY ==
[2022-02-07 17:19] LABS: Absolute Lymphocyte Count 2.22 X10^3/uL (0.83-4.51); Absolute Neutrophil Count 4.2 X10^3/uL (2.0-7.7); Basophil# 0.04 X10^3/uL; Basophil% 0.6 % (0-1); Hematocrit 37.2 % (37-47); Hemoglobin 12.7 g/dL (12.0-15.0); Lymphocyte # 2.22 X10^3/ul (0.83-4.51); Lymphocyte % 31.9 % (19-41); Mean Corp Hgb Conc 34.1 g/dL (32-36); Mean Corpuscular Volume 93.7 fL (81-99); Mean Platelet Vol. 9.2 fl (6.2-12.0); Monocyte# 0.45 X10^3/uL; Monocyte% 6.5 % (0-10); NRBC Flagged by Analyzer 0 % (0-5); Neutrophil # 4.24 X10^3/uL (2.7-7.7); Neutrophil % 60.7 % (47-70); Platelet Count 315 K/mm3 (150-450); RBC Distribution Width CV 12.3 % (11.6-14.6); RBC Distribution Width SD 42.7 fl (35.1-43.9); Red Blood Count 3.97 M/mm3 (4.2-5.4)
[2022-02-07 17:42] LABS: ALB/GLOB Ratio 1.1 RATIO (0.9-2.4); AST(SGOT) 22 U/L (15-37); Alanine Aminotransfer ALT/SGPT 29 U/L (13-56); Albumin, Serum 3.8 g/dL (3.2-5.0); Alkaline Phosphatase 79 U/L (45-117); Anion Gap 8 (5-15); BUN 9 mg/dL (7-18); Calcium,Total 8.8 mg/dL (8.5-10.1); Chloride 100 mmol/L (98-107); EST Glomerular Filtration Rate 68 mL/min (>60); Est Glom Filt Rate - Afr Amer 82 mL/min (>60); Globulin 3.6 g/dL (2.2-4.2); Glucose 90 mg/dL (74-106); Potassium 3.5 mmol/L (3.5-5.1); Protein, Total 7.4 g/dL (6.4-8.2); Sodium Level 134 mmol/L (136-145); Thyroid Stim Hormone (TSH) 1.07 uIU/mL (0.358-3.74)
[2022-02-07 18:00] LABS: Vitamin D,25 Hydroxy 52.5 ng/mL
== END 2022-02-07 23:59 | disposition home or self-care (01) ==
LOC: POLAB3 14:48
PROVIDERS: PCP Family Medicine Geriatric Medicine; Visit Provider Family Medicine Geriatric Medicine
DX: E55.9 Vitamin D deficiency, unspecified (principal); I10 Essential (primary) hypertension
CPT/HCPCS: 36415; 80053; 82306; 84443; 85025

== ENCOUNTER → 2022-08-08 | Outpatient (CLI) | payer BC, SELFPAY ==
[2022-08-08 17:17] LABS: Absolute Lymphocyte Count 2.22 X10^3/uL (0.83-4.51); Absolute Neutrophil Count 3.1 X10^3/uL (2.0-7.7); Basophil# 0.03 X10^3/uL; Basophil% 0.5 % (0-1); Eosinophil# 0.11 X10^3/uL; Eosinophils% 1.8 % (0-5); Hemoglobin 13.5 g/dL (12.0-15.0); Lymphocyte # 2.22 X10^3/ul (0.83-4.51); Lymphocyte % 37.1 % (19-41); Mean Corp Hgb Conc 34.6 g/dL (32-36); Mean Corpuscular Hgb 32.2 pg (27.0-32.0); Mean Corpuscular Volume 93.1 fL (81-99); Mean Platelet Vol. 9.1 fl (6.2-12.0); Monocyte# 0.54 X10^3/uL; NRBC Flagged by Analyzer 0 % (0-5); Neutrophil # 3.07 X10^3/uL (2.7-7.7); Neutrophil % 51.4 % (47-70); Platelet Count 304 K/mm3 (150-450); RBC Distribution Width CV 12.8 % (11.6-14.6); RBC Distribution Width SD 43.8 fl (35.1-43.9); Red Blood Count 4.19 M/mm3 (4.2-5.4)
[2022-08-08 17:49] LABS: Vitamin D,25 Hydroxy 53.8 ng/mL
[2022-08-08 17:54] LABS: AST(SGOT) 28 U/L (15-37); Alanine Aminotransfer ALT/SGPT 32 U/L (13-56); Albumin, Serum 3.9 g/dL (3.2-5.0); Alkaline Phosphatase 69 U/L (45-117); Anion Gap 8 (5-15); BUN 10 mg/dL (7-18); BUN/Creat Ratio 11.1 RATIO (10-20); Calcium,Total 9.1 mg/dL (8.5-10.1); Chloride 102 mmol/L (98-107); EST Glomerular Filtration Rate 68 mL/min (>60); Est Glom Filt Rate - Afr Amer 82 mL/min (>60); Globulin 3.8 g/dL (2.2-4.2); Glucose 72 mg/dL (74-106); Potassium 3.4 mmol/L (3.5-5.1); Protein, Total 7.7 g/dL (6.4-8.2); Sodium Level 138 mmol/L (136-145); Thyroid Stim Hormone (TSH) 0.67 uIU/mL (0.358-3.74)
== END | disposition home or self-care (01) ==
LOC: POLAB3 15:53
PROVIDERS: PCP Family Medicine Geriatric Medicine; Visit Provider Family Medicine Geriatric Medicine
DX: E55.9 Vitamin D deficiency, unspecified (principal); I10 Essential (primary) hypertension
CPT/HCPCS: 36415; 80053; 82306; 84443; 85025

== ENCOUNTER → 2022-09-06 | Outpatient (CLI) | payer BC, SELFPAY ==
--- NOTE | 2022-09-06 15:59 | BI_ITS ---
MAMMOGRAPHY - BILATERAL SCREENING REASON FOR EXAM: Female, 62 years old. Routine annual screening examination. PERTINENT HISTORY: Non-contributory. TECHNIQUE: Digital bilateral breast elian (3D mammographic acquisition) in the CC and MLO projections. 2-D mediolateral oblique (MLO) and craniocaudad (CC) views of both breasts were obtained. CAD: Full Field Digital Mammography with Computer Added Detection was performed. COMPARISON: Comparison is made with prior examination of August 2021 and 07/19/2020. FINDINGS: Breast Composition: The breasts are heterogeneously dense, which may obscure small masses. There are no dominant masses or suspicious calcifications. No other significant abnormalities are identified. There has been no significant change since the prior study. BI/SCRN MAMM (CAD)W/ELIAN BILAT IMPRESSION: Stable bilateral screening mammogram. Yearly follow-up mammogram recommended. (A) ASSESSMENT CATEGORY: BIRADS Category 1: Negative. A letter regarding these results will be sent to the patient by the facility within 30 days. Approximately 10% of breast cancers are not detected by mammography. A normal mammogram should not delay biopsy of a clinically suspicious abnormality. [id number] Electronically Signed: Terry Mccrary MD at 8:23 EST ,
== END | disposition home or self-care (01) ==
LOC: OPBI 09-07 08:13
PROVIDERS: PCP Family Medicine Geriatric Medicine; Visit Provider Student in an Organized Health Care Education/Training Program
DX: Z12.31 Encounter for screening mammogram for malignant neoplasm of breast (principal)
CPT/HCPCS: 77063; 77067

== ENCOUNTER → 2022-12-27 | Outpatient (CLI) | payer BC, SELFPAY ==
[2022-12-27 17:57] LABS: Absolute Lymphocyte Count 2.22 X10^3/uL (0.83-4.51); Absolute Neutrophil Count 3.5 X10^3/uL (2.0-7.7); Basophil# 0.04 X10^3/uL; Basophil% 0.6 % (0-1); Eosinophil# 0.12 X10^3/uL; Eosinophils% 1.9 % (0-5); Hematocrit 40.6 % (37-47); Hemoglobin 13.5 g/dL (12.0-15.0); Lymphocyte # 2.22 X10^3/ul (0.83-4.51); Lymphocyte % 34.5 % (19-41); Mean Corp Hgb Conc 33.3 g/dL (32-36); Mean Corpuscular Hgb 32.1 pg (27.0-32.0); Mean Corpuscular Volume 96.7 fL (81-99); Mean Platelet Vol. 9.1 fl (6.2-12.0); Monocyte# 0.52 X10^3/uL; Monocyte% 8.1 % (0-10); NRBC Flagged by Analyzer 0 % (0-5); Neutrophil # 3.52 X10^3/uL (2.7-7.7); Neutrophil % 54.6 % (47-70); Platelet Count 287 K/mm3 (150-450); RBC Distribution Width CV 12.8 % (11.6-14.6); RBC Distribution Width SD 45.6 fl (35.1-43.9); White Blood Count 6.4 K/mm3 (4.4-11.0)
[2022-12-27 18:28] LABS: AST(SGOT) 25 U/L (15-37); Alanine Aminotransfer ALT/SGPT 33 U/L (13-56); Albumin, Serum 4.1 g/dL (3.2-5.0); Alkaline Phosphatase 87 U/L (45-117); Anion Gap 5 (5-15); BUN 11 mg/dL (7-18); BUN/Creat Ratio 12.9 RATIO (10-20); Calcium,Total 9.2 mg/dL (8.5-10.1); Chloride 106 mmol/L (98-107); Creatinine, Serum 0.85 mg/dL (0.55-1.02); EST Glomerular Filtration Rate 72 mL/min (>60); Est Glom Filt Rate - Afr Amer 87 mL/min (>60); Glucose 88 mg/dL (74-106); Potassium 3.8 mmol/L (3.5-5.1); Protein, Total 8.1 g/dL (6.4-8.2); Sodium Level 138 mmol/L (136-145); Thyroid Stim Hormone (TSH) 0.92 uIU/mL (0.358-3.74)
== END | disposition home or self-care (01) ==
LOC: LAB 16:59
PROVIDERS: PCP Family Medicine Geriatric Medicine; Referring Provider Family Medicine Geriatric Medicine; Visit Provider Family Medicine Geriatric Medicine
DX: R53.83 Other fatigue (principal)
CPT/HCPCS: 36415; 80053; 84443; 85025

== ENCOUNTER → 2023-02-12 | Outpatient (CLI) | payer BC, SELFPAY ==
[2023-02-12 17:36] LABS: Absolute Lymphocyte Count 2.26 X10^3/uL (0.83-4.51); Absolute Neutrophil Count 3.8 X10^3/uL (2.0-7.7); Basophil# 0.03 X10^3/uL; Basophil% 0.5 % (0-1); Eosinophil# 0.02 X10^3/uL; Eosinophils% 0.3 % (0-5); Hematocrit 37.5 % (37-47); Hemoglobin 12.8 g/dL (12.0-15.0); Lymphocyte # 2.26 X10^3/ul (0.83-4.51); Lymphocyte % 34.2 % (19-41); Mean Corp Hgb Conc 34.1 g/dL (32-36); Mean Corpuscular Hgb 32.7 pg (27.0-32.0); Mean Corpuscular Volume 95.7 fL (81-99); Mean Platelet Vol. 9.6 fl (6.2-12.0); Monocyte# 0.46 X10^3/uL; NRBC Flagged by Analyzer 0 % (0-5); Neutrophil # 3.81 X10^3/uL (2.7-7.7); Neutrophil % 57.7 % (47-70); Platelet Count 293 K/mm3 (150-450); RBC Distribution Width CV 12.8 % (11.6-14.6); RBC Distribution Width SD 44.6 fl (35.1-43.9); Red Blood Count 3.92 M/mm3 (4.2-5.4); White Blood Count 6.6 K/mm3 (4.4-11.0)
[2023-02-12 17:57] LABS: AST(SGOT) 28 U/L (15-37); Alanine Aminotransfer ALT/SGPT 34 U/L (13-56); Albumin, Serum 3.7 g/dL (3.2-5.0); Alkaline Phosphatase 80 U/L (45-117); Anion Gap 7 (5-15); BUN 11 mg/dL (7-18); BUN/Creat Ratio 12.5 RATIO (10-20); Calcium,Total 8.6 mg/dL (8.5-10.1); Chloride 104 mmol/L (98-107); Creatinine, Serum 0.88 mg/dL (0.55-1.02); EST Glomerular Filtration Rate 70 mL/min (>60); Est Glom Filt Rate - Afr Amer 85 mL/min (>60); Globulin 3.8 g/dL (2.2-4.2); Glucose 91 mg/dL (74-106); Potassium 3.4 mmol/L (3.5-5.1); Protein, Total 7.5 g/dL (6.4-8.2); Sodium Level 137 mmol/L (136-145); Thyroid Stim Hormone (TSH) 0.92 uIU/mL (0.358-3.74)
== END | disposition home or self-care (01) ==
PROVIDERS: PCP Family Medicine Geriatric Medicine; Visit Provider Family Medicine Geriatric Medicine
DX: I10 Essential (primary) hypertension (principal)
CPT/HCPCS: 36415; 80053; 84443; 85025

== ENCOUNTER → 2023-08-12 | Outpatient (CLI) | payer BC, SELFPAY ==
--- OUTSIDE RECORDS SUMMARY | 2023-08-12 17:08 | XMS RPT_ITS | CCD ---
Author Name Unknown Address [address] [place] [address] Organization [facility] Care Team Providers Care Supervisor [employer] Name Role Phone Juan Jose Brenner Chi Primary Care Provider [phone] Juan Jose Brenner Chi Unavailable Allergies Allergy Classification Reported Allergen(s) Allergy Type Date of Onset Reaction(s) Facility (1 source) chlordiazePOXIDE / clidinium Drug Allergy 03-08-20 14 Itching [facility] Work Phone: (1 source) clidinium Drug Allergy 04-22-20 15 Unknown [facility] Work Phone: (1 source) Dicyclomine Drug Allergy 06-01-20 15 Itching [facility] (1 source) eletriptan Drug Allergy 06-22-20 11 Other: See Comments [facility] (1 source) Escitalopram Drug Allergy 12-24-19 12 Unknown [facility] (1 source) FLUoxetine Drug Allergy 12-24-19 12 Unknown [facility] (1 source) Ketorolac Drug Allergy 11-10-19 10 [facility] (1 source) medroxyPROGESTERone Drug Allergy 06-01-20 15 Rash [facility] (1 source) medroxyPROGESTERone Drug Allergy 06-02-20 13 Vomiting [facility] (1 source) Metoprolol Drug Allergy 12-24-19 12 Unknown [facility] (1 source) metroNIDAZOLE Drug Allergy 06-02-20 13 GI Upset [facility] (1 source) Norethindrone Drug Allergy 12-24-19 12 Unknown [facility] (1 source) PARoxetine Drug Allergy 12-24-19 12 Unknown [facility] (1 source) predniSONE Drug Allergy 03-20-20 15 Anaphylaxis [facility] Medications Completed/Discontinued Medications Medication Drug Class(es) Dates Sig (Normalized) Sig (Original) almotriptan 12.5 mg oral tablet (1 source) Serotonin-1b and Serotonin-1d Receptor Agonist Start: 06-06-2015 take 1 tablet by mouth every two hours as needed Almotriptan Malate (AXERT) 12.5 mg tablet Take 1 tablet by mouth as needed. may repeat in 2 hours if needed 6 tablet 2 06/06/2015 Active Problems Active Problems Problem Classification Problem Date Documented Da te Episodic/Chronic Fluid and electrolyte disorders (2 sources) Hypokalemia; Translations: [Hypokalemia] Onset: 04-24-2005 06-03-2015 Episodic Headache; including migraine (1 source) Migraine without aura; Translations: [Migraine without aura, not intractable, without status migrainosus] Onset: 02-22-2003 06-03-2015 Chronic Noninfectious gastroenteritis (1 source) Lymphocytic colitis; Translations: [Other and unspecified noninfectious gastroenteritis and colitis] 03-08-2014 Chronic Other circulatory disease (1 source) Raynaud's phenomenon; Translations: [Raynaud's syndrome without gangrene] Onset: 10-11-2010 10-11-2010 Chronic Other gastrointestinal disorders (1 source) Irritable bowel syndrome; Translations: [Irritable bowel syndrome without diarrhea] Onset: 05-28-2005 06-03-2015 Chronic Other nutritional; endocrine; and metabolic disorders (1 source) Disorder of calcium metabolism; 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] 06-03-2015 Chronic Residual codes; unclassified (1 source) Hypersomnia disorder related to a known organic factor; Translations: [Other organic hypersomnia] Onset: 10-11-2010 10-11-2010 Chronic Spondylosis; intervertebral disc disorders; other back problems (1 source) Cervical spondylosis without myelopathy; Translations: [Spondylosis without myelopathy or radiculopathy, cervical region] Onset: 08-06-2007 06-03-2015 Chronic Past or Other Problems Problem Classification Problem Date Documented Da te Episodic/Chronic Hemorrhoids (1 source) Internal hemorrhoids; Translations: [Other hemorrhoids] Onset: 07-04-2005 06-03-2015 Episodic Other gastrointestinal disorders (1 source) Diarrhea; Translations: [Diarrhea, unspecified] Onset: 07-04-2005 06-03-2015 Episodic Encounters Encounter Date Encounter Type Care Provider Facility Start: 03-25-2023 ambulatory Noy Roman MD Work Phone: OB/Gynecology Procedures Date Procedure Procedure Detail Performing Clinician Start: 04-25-2015 Colonoscopy Noy Roman MD Work Phone: Plan of Treatment Date Care Activity Detail Author Start: 04-25-2025 Colonoscopy COLONOSCOPY [facility] Start: 04-25-2025 COLORECTAL CANCER SCREENING COLORECTAL CANCER SCREENING [facility] Start: 03-15-2023 Influenza vaccination INFLUENZA (#1) [facility] Start: 07-15-2022 DEPRESSION ASSESSMENT DEPRESSION ASS ESSMENT [facility] Start: 11-11-2021 DIABETES SCREEN DIABETES SCREEN [facility] Start: 12-09-2020 COVID-19 VACCINE (3 - Pfizer series) COVID-19 VACCINE (3 - Pfizer series) [facility] Start: 06-19-2018 SIGMOIDOSCOPY SIGMOIDOSCOPY [facility] Start: 2012 SHINGRIX VACCINE (1 of 2) SHINGRIX V ACCINE (1 of 2) [facility] Start: 2007 COLOGUARD (FIT-DNA) COLOGUARD (FIT-D NA) [facility] Start: [address] COLONOGRAPHY [facility] Start: 2007 FECAL OCCULT BLOOD FECAL OCCULT BLOO D [facility] Start: 2007 LIPID SCREEN LIPID SCREEN [facility] Start: 2002 Mammography MAMMOGRAM [facility] Start: 1992 HPV TESTING HPV TESTING [facility] Start: 1983 PAP TESTING PAP TESTING [facility] Start: 1981 Urine microalbumin profile DTAP,TDAP ,TD (1 - Tdap) [facility] Start: 1980 HEPATITIS C SCREENING HEPATITIS C SC REENING [facility] Start: 1980 HIV SCREENING [facility]CRE[facility]ING [facility] Payers Date Payer Category Payer Unknown [employer]HELLE SPRINGER PPO [id number] 2021-Present [phone] [facility] [id number] [place] [address] PPO [id number] Social History Date Type Detail Facility Tobacco smoking stat us NHIS Never smoked tobacco [facility] Start: 04-28-2019 Alcohol intake Current drinke r of alcohol (finding) [facility] Start: 04-28-2019 End: 06-19-2020 History of Social function [facility] Start: 04-28-2019 End: 06-19-2020 Tobacco use panel [facility] Adult Depression Screening Assessment 1 [facility] Start: 04-25-2015 Alcohol Comment occasional alcohol C [facility] Start: 1960 Sex Assigned At Not on file C [facility] Progress note 03-25-2023 Note Date & Type Note Facility 03-25-2023 Note HNO ID: [id number] Author: Elizabeth Hicks RN Service: ? Author Type: ? Type: Progress Notes Filed: 03/25/2023 1:50 PM Note Text: Received records from [facility]. Sent for scanning. Elizabeth Hicks RN [facility] History of Present illness Narrative 03-25-2023 Elizabeth Hicks RN - 03/25/2023 1:50 PM EDT Note Date & Type Note Facility 03-25-2023 History of Presen t illness Narrative Received records from [facility]. Sent for scanning. Elizabeth Hicks RN documented in this encounter [facility] Summary Purpose Family History No Family History Records Found Advance Directives No Advanced Directives Records Found Additional Source Comments Source Comments (unrecognize d section and content) In the event this informatio n is protected by the Federal Confidentiality of Alcohol and Drug Abuse Patient Records regulations: The Federal rules restrict any use of the information to criminally investigate or prosecute any alcohol or drug abuse patient.[facility] Reason for Visit (unrecogniz ed section and content) Care Teams (unrecognized sec tion and content) INFORMATION SOURCE (unrecogn ized section and content) FOR RECORDS PERTAINING TO PATIENTS WHO ARE OR HAVE BEEN ENROLLED IN A CHEMICAL DEPENDENCY/SUBSTANCEABUSE PROGRAM, SOME INFORMATION MAY BE OMITTED. This clinical summary was aggregated from multiple sources. Caution should be exercised in using it in the provision of clinical care. This summary normalizes information from multiple sources, and as a consequence, information in this document may materially change the coding, format and clinical context of patient data. In addition, data may be omitted in some cases. CLINICAL DECISIONS SHOULD BE BASED ON THE PRIMARY CLINICAL RECORDS. [facility] [employer] [facility]. provides no warranty or guarantee of the accuracy or completeness of information in this document.
[2023-08-12 17:31] LABS: Absolute Neutrophil Count 3.4 X10^3/uL (2.0-7.7); Basophil# 0.05 X10^3/uL; Basophil% 0.7 % (0-1); Eosinophil# 0.14 X10^3/uL; Hematocrit 39.4 % (37-47); Hemoglobin 13.3 g/dL (12.0-15.0); Lymphocyte % 41.4 % (19-41); Mean Corp Hgb Conc 33.8 g/dL (32-36); Mean Corpuscular Hgb 31.4 pg (27.0-32.0); Mean Corpuscular Volume 92.9 fL (81-99); Mean Platelet Vol. 8.9 fl (6.2-12.0); Monocyte# 0.49 X10^3/uL; NRBC Flagged by Analyzer 0 % (0-5); Neutrophil # 3.41 X10^3/uL (2.7-7.7); Neutrophil % 48.6 % (47-70); Platelet Count 314 K/mm3 (150-450); RBC Distribution Width CV 12.8 % (11.6-14.6); RBC Distribution Width SD 43.8 fl (35.1-43.9); Red Blood Count 4.24 M/mm3 (4.2-5.4)
[2023-08-12 17:57] LABS: AST(SGOT) 25 U/L (15-37); Alanine Aminotransfer ALT/SGPT 29 U/L (13-56); Albumin, Serum 3.9 g/dL (3.2-5.0); Alkaline Phosphatase 79 U/L (45-117); Anion Gap 4 (5-15); BUN 15 mg/dL (7-18); BUN/Creat Ratio 17.9 RATIO (10-20); Calcium,Total 9.1 mg/dL (8.5-10.1); Chloride 106 mmol/L (98-107); Creatinine, Serum 0.84 mg/dL (0.55-1.02); EST Glomerular Filtration Rate 74 mL/min (>60); Est Glom Filt Rate - Afr Amer 89 mL/min (>60); Globulin 3.8 g/dL (2.2-4.2); Glucose 91 mg/dL (74-106); Potassium 3.8 mmol/L (3.5-5.1); Protein, Total 7.7 g/dL (6.4-8.2); Sodium Level 136 mmol/L (136-145); Thyroid Stim Hormone (TSH) 1.14 uIU/mL (0.358-3.74)
== END | disposition home or self-care (01) ==
LOC: POLAB3 16:44
PROVIDERS: PCP Family Medicine Geriatric Medicine; Visit Provider Family Medicine Geriatric Medicine
DX: I10 Essential (primary) hypertension (principal)
CPT/HCPCS: 36415; 80053; 84443; 85025

== ENCOUNTER → 2023-09-16 | Outpatient (CLI) | payer BC, SELFPAY ==
--- NOTE | 2023-09-16 12:12 | BI_ITS ---
MAMMOGRAPHY - BILATERAL SCREENING 3-D TOMOSYNTHESIS REASON FOR EXAM: Female, 63 years old. SCREENING PERTINENT HISTORY: No significant family history. TECHNIQUE: 2-D mammograms and 3-D Tomosynthesis of the breast (s) were performed. CAD was performed. COMPARISON: 09/06/2022 FINDINGS: The breast composition is heterogeneously dense that can obscure small breast masses. Scattered benign calcifications are seen. No dense spiculated masses or suspicious microcalcifications are identified. No architectural distortion is identified. There is no skin thickening or retraction. There has been no significant change since the prior study. BI/SCRN MAMM (CAD)W/ELIAN BILAT IMPRESSION: No mammographic signs of malignancy. Routine yearly mammograms recommended. ASSESSMENT CATEGORY: BIRADS Category 1: Negative. A letter regarding these results will be sent to the patient by the facility within 30 days. FOLLOW UP RECOMMENDATION: Yearly follow up mammogram recommended. (A) Approximately 10% of breast cancers are not detected by mammography. A normal mammogram should not delay biopsy of a clinically suspicious abnormality. Electronically Signed: Pipo Delgado MD at 16:06 EST ,
--- OUTSIDE RECORDS SUMMARY | 2023-09-16 12:31 | XMS RPT_ITS | CCD ---
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 [employer] Name Role Phone Juan Jose Brenner Chi Primary Care Provider Juan Jose Brenner Chi Unavailable Allergies Allergy Classification Reported Allergen(s) Allergy Type Date of Onset Reaction(s) Facility (1 source) chlordiazePOXIDE / clidinium Drug Allergy 03-08-20 14 Itching [facility] Work Phone: (1 source) clidinium Drug Allergy 04-22-20 15 Unknown [facility] Work Phone: (1 source) Dicyclomine Drug Allergy 06-01-20 15 Itching [facility] (1 source) eletriptan Drug Allergy 06-22-20 11 Other: See Comments [facility] (1 source) Escitalopram Drug Allergy 12-24-19 12 Unknown [facility] (1 source) FLUoxetine Drug Allergy 12-24-19 12 Unknown [facility] (1 source) Ketorolac Drug Allergy 11-10-19 10 [facility] (1 source) medroxyPROGESTERone Drug Allergy 06-01-20 15 Rash [facility] (1 source) medroxyPROGESTERone Drug Allergy 06-02-20 13 Vomiting [facility] (1 source) Metoprolol Drug Allergy 12-24-19 12 Unknown [facility] (1 source) metroNIDAZOLE Drug Allergy 06-02-20 13 GI Upset [facility] (1 source) Norethindrone Drug Allergy 12-24-19 12 Unknown [facility] (1 source) PARoxetine Drug Allergy 12-24-19 12 Unknown [facility] (1 source) predniSONE Drug Allergy 03-20-20 15 Anaphylaxis [facility] Medications Completed/Discontinued Medications Medication Drug Class(es) [...] Activity Detail Author Start: 04-25-2025 Colonoscopy COLONOSCOPY [facility] Start: 04-25-2025 COLORECTAL CANCER SCREENING COLORECTAL CANCER SCREENING [facility] Start: 03-15-2023 Influenza vaccination INFLUENZA (#1) [facility] Start: 07-15-2022 DEPRESSION ASSESSMENT DEPRESSION ASS ESSMENT [facility] Start: 11-11-2021 DIABETES SCREEN DIABETES SCREEN [facility] Start: 12-09-2020 COVID-19 VACCINE (3 - Pfizer series) COVID-19 VACCINE (3 - Pfizer series) [facility] Start: 06-19-2018 SIGMOIDOSCOPY SIGMOIDOSCOPY [facility] Start: 2012 SHINGRIX VACCINE (1 of 2) SHINGRIX V ACCINE (1 of 2) [facility] Start: 2007 COLOGUARD (FIT-DNA) COLOGUARD (FIT-D NA) [facility] Start: [address] COLONOGRAPHY [facility] Start: 2007 FECAL OCCULT BLOOD FECAL OCCULT BLOO D [facility] Start: 2007 LIPID SCREEN LIPID SCREEN [facility] Start: 2002 Mammography MAMMOGRAM [facility] Start: 1992 HPV TESTING HPV TESTING [facility] Start: 1983 PAP TESTING PAP TESTING [facility] Start: 1981 Urine microalbumin profile DTAP,TDAP ,TD (1 - Tdap) [facility] Start: 1980 HEPATITIS C SCREENING HEPATITIS C SC REENING [facility] Start: 1980 HIV SCREENING HIV SCREENING [facility] Payers Date Payer Category Payer Unknown MICHELLE SPRINGER PPO [id number] 2021-Present [phone] [facility] [address] [place] [address] PPO [id number] Social History Date Type Detail Facility Tobacco smoking stat us NHIS Never smoked tobacco [facility] Start: 04-28-2019 Alcohol intake Current drinke r of alcohol (finding) [facility] Start: 04-28-2019 End: 06-19-2020 History of Social function [facility] Start: 04-28-2019 End: 06-19-2020 Tobacco use panel [facility] Adult Depression Screening Assessment 1 [facility] Start: 04-25-2015 Alcohol Comment occasional alcohol C [facility] Start: 1960 Sex Assigned At Not on file C [facility] Progress note 03-25-2023 Note Date & Type Note Facility 03-25-2023 Note HNO ID: [id number] Author: Elizabeth Hicks RN Service: ? Author Type: ? Type: Progress Notes Filed: 03/25/2023 1:50 PM Note Text: Received records from [place] [facility]. Sent for scanning. Elizabeth Hicks RN [facility] History of Present illness Narrative 03-25-2023 Elizabeth Hicks RN - 03/25/2023 1:50 PM EDT Note Date & Type Note Facility 03-25-2023 History of Presen t illness Narrative Received records from [place] [facility]. Sent for scanning. Elizabeth Hicks RN documented in this encounter [facility] Summary Purpose Family History No Family [...] or prosecute any alcohol or drug abuse patient.[facility] Reason for Visit (unrecogniz ed section [...] BE BASED ON THE PRIMARY CLINICAL RECORDS. [facility] [facility]. provides no warranty or guarantee of the accuracy or completeness of information in this document.
== END | disposition home or self-care (01) ==
LOC: OPBI 12:11
PROVIDERS: PCP Family Medicine Geriatric Medicine; Referring Provider Family Medicine Geriatric Medicine; Visit Provider Family Medicine Geriatric Medicine
DX: Z12.31 Encounter for screening mammogram for malignant neoplasm of breast (principal)
CPT/HCPCS: 77063; 77067

== ENCOUNTER → 2024-03-02 | Outpatient (CLI) | payer BC, SELFPAY ==
[2024-03-02 17:23] LABS: Absolute Lymphocyte Count 2.61 X10^3/uL (0.83-4.51); Absolute Neutrophil Count 3.8 X10^3/uL (2.0-7.7); Basophil# 0.05 X10^3/uL; Basophil% 0.7 % (0-1); Eosinophil# 0.16 X10^3/uL; Eosinophils% 2.2 % (0-5); Hematocrit 39.9 % (37-47); Hemoglobin 13.5 g/dL (12.0-15.0); Lymphocyte # 2.61 X10^3/ul (0.83-4.51); Lymphocyte % 36.3 % (19-41); Mean Corp Hgb Conc 33.8 g/dL (32-36); Mean Corpuscular Hgb 32.2 pg (27.0-32.0); Mean Corpuscular Volume 95.2 fL (81-99); Mean Platelet Vol. 8.6 fl (6.2-12.0); Monocyte% 8.3 % (0-10); NRBC Flagged by Analyzer 0 % (0-5); Neutrophil # 3.75 X10^3/uL (2.7-7.7); Neutrophil % 52.2 % (47-70); Platelet Count 268 K/mm3 (150-450); RBC Distribution Width CV 12.5 % (11.6-14.6); RBC Distribution Width SD 43.8 fl (35.1-43.9); Red Blood Count 4.19 M/mm3 (4.2-5.4); White Blood Count 7.2 K/mm3 (4.4-11.0)
[2024-03-02 17:59] LABS: AST(SGOT) 25 U/L (15-37); Alanine Aminotransfer ALT/SGPT 28 U/L (13-56); Alkaline Phosphatase 82 U/L (45-117); Anion Gap 6 (5-15); BUN 11 mg/dL (7-18); BUN/Creat Ratio 11.2 RATIO (10-20); Calcium,Total 8.9 mg/dL (8.5-10.1); Chloride 104 mmol/L (98-107); Creatinine, Serum 0.98 mg/dL (0.55-1.02); EST Glomerular Filtration Rate 61 mL/min (>60); Est Glom Filt Rate - Afr Amer 74 mL/min (>60); Globulin 3.9 g/dL (2.2-4.2); Glucose 91 mg/dL (74-106); Potassium 3.7 mmol/L (3.5-5.1); Protein, Total 7.9 g/dL (6.4-8.2); Sodium Level 136 mmol/L (136-145)
== END | disposition home or self-care (01) ==
LOC: LAB 17:11
PROVIDERS: PCP Family Medicine Geriatric Medicine; Referring Provider Family Medicine Geriatric Medicine; Visit Provider Family Medicine Geriatric Medicine
DX: I10 Essential (primary) hypertension (principal)
CPT/HCPCS: 36415; 80053; 84443; 85025

== ENCOUNTER → 2024-04-03 | Outpatient (CLI) | payer BC, SELFPAY ==
[2024-04-03 16:54] LABS: Basophil# 0.03 X10^3/uL; Basophil% 0.4 % (0-1); Hematocrit 37.9 % (37-47); Hemoglobin 12.6 g/dL (12.0-15.0); Mean Corp Hgb Conc 33.2 g/dL (32-36); Mean Corpuscular Hgb 31.4 pg (27.0-32.0); Mean Corpuscular Volume 94.5 fL (81-99); Mean Platelet Vol. 8.9 fl (6.2-12.0); Monocyte# 0.44 X10^3/uL; Monocyte% 6.5 % (0-10); NRBC Flagged by Analyzer 0 % (0-5); Neutrophil # 3.96 X10^3/uL (2.7-7.7); Neutrophil % 58.7 % (47-70); Platelet Count 331 K/mm3 (150-450); RBC Distribution Width CV 12.2 % (11.6-14.6); RBC Distribution Width SD 42.7 fl (35.1-43.9); Red Blood Count 4.01 M/mm3 (4.2-5.4); White Blood Count 6.8 K/mm3 (4.4-11.0)
[2024-04-03 17:36] LABS: Erythrocyte Sedimentation Rate 18 mm/hr (0-30)
[2024-04-03 17:48] LABS: ALB/GLOB Ratio 0.9 RATIO (0.9-2.4); AST(SGOT) 19 U/L (15-37); Alanine Aminotransfer ALT/SGPT 28 U/L (13-56); Albumin, Serum 3.6 g/dL (3.2-5.0); Alkaline Phosphatase 91 U/L (45-117); Anion Gap 7 (5-15); BUN 13 mg/dL (7-18); BUN/Creat Ratio 16.4 RATIO (10-20); CRP 3.42 mg/L (0.0-3.0); Calcium,Total 9.3 mg/dL (8.5-10.1); Chloride 104 mmol/L (98-107); Creatinine, Serum 0.79 mg/dL (0.55-1.02); EST Glomerular Filtration Rate 78 mL/min (>60); Est Glom Filt Rate - Afr Amer 95 mL/min (>60); Free T3 2.5 pg/mL (2.18-3.98); Globulin 4.2 g/dL (2.2-4.2); Glucose 95 mg/dL (74-106); LDH 213 U/L (84-246); Potassium 3.7 mmol/L (3.5-5.1); Protein, Total 7.8 g/dL (6.4-8.2); Sodium Level 137 mmol/L (136-145); T4 Free Direct 0.84 ng/dL (0.76-1.46); Thyroid Stim Hormone (TSH) 0.883 uIU/mL (0.358-3.740)
[2024-04-08 17:07] LABS: Anti-Centromere B Ab <0.2 AI (0.0-0.9); Anti-Chromatin 1.3 AI (0.0-0.9); Anti-Jo <0.2 AI (0.0-0.9); Anti-Scleroderma-70 AB <0.2 AI (0.0-0.9); Anti-dsDNA Ab <1 IU/mL (0-9); Beef <0.10 kU/L (Class 0); Chocolate <0.10 kU/L (Class 0); Codfish <0.10 kU/L (Class 0); Corn <0.10 kU/L (Class 0); Egg, Whole <0.10 kU/L (Class 0); Milk (Cow) <0.10 kU/L (Class 0); Mussels <0.10 kU/L (Class 0); Peanut <0.10 kU/L (Class 0); Pork <0.10 kU/L (Class 0); RNP Ab 2.4 AI (0.0-0.9); SJOGREN'S Anti-SS-A test < 0.2 AI (0.0-0.9); SJOGREN'S Anti-SS-B test < 0.2 AI (0.0-0.9); Salmon <0.10 kU/L (Class 0); Shrimp <0.10 kU/L (Class 0); Smith Ab <0.2 AI (0.0-0.9); Soybean <0.10 kU/L (Class 0); Tuna <0.10 kU/L (Class 0); Wheat <0.10 kU/L (Class 0)
[2024-04-10 10:09] LABS: ACCA 103 units (0-90); ALCA 2 units (0-60); AMCA 7 units (0-100); Albumin 3.6 g/dL (2.9-4.4); Alpha-1-Globulins 0.3 g/dL (0.0-0.4); Cytoplasmic Ab (C-ANCA) <1:20 titer (Neg:<1:20); Endomysial Antibody IgA Negative (Negative); Gamma Globulin 1.3 g/dL (0.4-1.8); Immunoglobulin A 302 mg/dL (87-352); Immunoglobulin E 27 IU/mL (6-495); Immunoglobulin G 1227 mg/dL (586-1602); Immunoglobulin M 107 mg/dL (26-217); PROEL- TOTAL PROTEIN 7.2 g/dL (6.0-8.5); Perinuclear Ab (P-ANCA) <1:20 titer (Neg:<1:20); gASCA 4 units (0-50); t-Transglutaminase IgA <2 U/mL (0-3)
== END | disposition home or self-care (01) ==
LOC: LAB 15:50
PROVIDERS: PCP Family Medicine Geriatric Medicine
DX: K58.0 Irritable bowel syndrome with diarrhea (principal)
CPT/HCPCS: 36415; 80053; 82784; 82785; 83516; 83615; 84165; 84439; 84443; 84481; 85025; 85652; 86003; 86005; 86036; 86140; 86225; 86235; 86255; 86256; 86334; 86671

== ENCOUNTER → 2024-04-05 | Outpatient (CLI) | payer BC, SELFPAY ==
[2024-04-08 17:07] LABS: Pancreatic Elastase, Fecal 286 (>200)
[2024-04-08 19:07] LABS: Calprotectin, Stool 21 ug/g (0-120)
== END | disposition home or self-care (01) ==
LOC: LABSPEC 10:13
PROVIDERS: PCP Family Medicine Geriatric Medicine
DX: K58.0 Irritable bowel syndrome with diarrhea (principal)
CPT/HCPCS: 82653; 83630; 83993; 87177; 87209; 87329; 87493; 87506

== ENCOUNTER → 2024-05-20 | Outpatient (CLI) | payer BC, SELFPAY ==
--- NOTE | 2024-05-20 09:55 | MRI_ITS ---
STUDY: MR ENTEROGRAPHY WITH CONTRAST REASON FOR EXAM: Female, 63 years old. K50.90 - Crohn''s disease, unspecified, without complications TECHNIQUE: Multipulse sequence MRI performed with IV contrast according to standard MR enterography protocol following administration of oral contrast for maximal bowel distention. Images were obtained from the dome of the diaphragm to the symphysis pubis. 10cc cllariscan was administered intravenously. TECHNICAL QUALITY: Image Quality: Satisfactory Small Bowel Distension: Adequate. COMPARISON: CT of abdomen and pelvis dated April 14, 2015. MRI of the abdomen dated April 22, 2015 FINDINGS: Bowel: Bowel wall thickening: Absent. Skip lesions: None. Vascularity: Normal. Enhancement: Normal. Fistula: None. Abscess: None. Other Findings: The lung bases are unremarkable. The visualized portions of the heart are within normal limits Liver: Redemonstration of numerous small cysts which are simple in benign scattered throughout the right lobe of the liver. Normal liver size and contour. No ductal dilatation is present. Normal gallbladder and extrahepatic biliary system. Normal spleen. Normal pancreas. Normal bilateral adrenal glands. Normal right kidney. Normal left kidney. Normal visualized stomach. Normal colon. No visualized colonic diverticula. No bowel wall thickening or masses are present. Normal abdominal aorta. Normal interior vena cava. Normal retroperitoneum. Normal urinary bladder. The uterus is absent. Normal abdominal wall. Normal osseous structures. MRI/Enterography Abd/Pel IMPRESSION: 1. Negative MR enterography. No demonstrated 2. Stable appearance of numerous benign liver cysts which do not requiring additional follow-up or imaging Electronically Signed: Negro Celis MD at 13:44 EST ,
[2024-05-20 10:28] LABS: CREATININE FINGERSTICK < 1.0 mg/dL (0.55-1.02); EGFR FINGERSTICK > 60.0000 mL/min (>60)
[2024-05-20 10:47] VITALS: BP 137/68; PULSE 70; RESP 16; O2SAT 96; BMI 22.4
[2024-05-20] MEDS: Glucagon 1 MG/ML Syringe IV (12:30)
[2024-05-20 12:47] VITALS: BP 134/72; PULSE 89; RESP 16; O2SAT 99
== END | disposition home or self-care (01) ==
LOC: MRI 09:49
PROVIDERS: PCP Family Medicine Geriatric Medicine
DX: K50.90 Crohn's disease, unspecified, without complications (principal)
CPT/HCPCS: 74183; A9575; A4216; J1610

== ENCOUNTER 2024-05-21 10:13 | Day surgery (SDC) | payer BC, SELFPAY ==
[2024-05-21] VITALS (9 sets, daily range): BP systolic 96–130; BP diastolic 66–84; PULSE 75–103; RESP 16–18; TEMP 36.1–36.5; O2SAT 95–100; BMI 21.9
--- NOTE | 2024-05-21 11:30 | EGD_PTH ---
PATIENT: KAROL HOYOS LOC: EN U#:[id number] AGE/SX: 63/F ROOM: RE05/21/[address]: Dr. Norberto Zamora DO : 1960 BED: DIS: 05/21/2024 SPEC #: [id number] RECD: 05/21/24 13:05 STATUS: RICCO RECelso #: [id number] RUBIO: 05/21/24 11:[address]: Norberto Zamora DEPT: SURGICAL PATHOLOGY RECD BY: Sara Cartre ENTERED: 05/21/24 13:23 SP TYPE: EGD BIOPSY OT DR: Dr. Juan Jose Brenner MD Tissues: A - Gastric mucous membrane B - Esophagus, NOS C - COLON BIOPSY Procedures: Trichrome (control) Special Stain Group I Surgery Specimen Level IV Alcian Blue/PAS (control) HEADER OPERATION: Colonoscopy with biopsy, EGD with biopsy PRE-OP DIAGNOSIS: Irritable bowel syndrome TISSUE SUBMITTED: A- Gastric antrum biopsy, B- Distal esophagus biopsy, C- Random colon MICROSCOPIC DIAGNOSIS A. Gastric antrum, biopsy: Mild gastritis. See microscopic description and comment. B. Distal esophagus, biopsy: Fragments of gastroesophageal mucosa with chronic inflammation. Intestinal metaplasia (goblet cell metaplasia) not identified. See comment. C. Colon, random biopsy: Fragments of colonic mucosa with changes consistent with lymphocytic (microscopic) and collagenous colitis. See comment. 05/22/2024 COMMENT A. The results of immunohistochemistry for Helicobacter pylori will be reported separately ([id number]). B. Alcian blue/PAS stain with matched control is used in the evaluation of the specimen. C. Trichrome stain with matched control was used in the evaluation of this case and show focal thickening of subepithelial collagen band. Correlation with clinical, endoscopic findings and appropriate follow up are necessary. MICROSCOPIC DESCRIPTION Slides are reviewed. A. The specimen shows fragments of gastric mucosa with chronic inflammatory cell infiltrates in the lamina propria consisting of lymphocytes and plasma cells, consistent with mild chronic gastritis. GROSS DESCRIPTION A. Received in fixative is one container labeled with the patient's name and designated Gastric antrum biopsy. The specimen consists of multiple irregular fragments of light villarreal soft tissue that in aggregate measure 1.0 x 0.2 x 0.1 cm. The specimen is totally submitted in one cassette. B. Received in fixative is one container labeled with the patient's name and designated Distal esophagus biopsy. The specimen consists of two irregular fragments of light villarreal soft tissue that in aggregate measure 0.6 x 0.3 x 0.1 cm. The specimen is totally submitted in one cassette. C. Received in fixative is one container labeled with the patient's name and designated Random colon biopsy. The specimen consists of multiple irregular fragments of light villarreal soft tissue that in aggregate measure 1.8 x 0.5 x 0.1 cm. The specimen is totally submitted in one cassette. SJ.mr 05/21/2024 TC:3 CPT:72624w7,84133g7
--- NOTE | 2024-05-21 11:30 | IMM_PTH ---
PATIENT: KAROL HOYOS LOC: EN U#:[id number] AGE/SX: 63/F ROOM: RE05/21/[address]: Dr. Norberto Zamora DO : 1960 BED: DIS: 05/21/2024 SPEC #: [id number] RECD: 05/21/24 14:39 STATUS: RICCO REQ #: [id number] RUBIO: 05/21/24 11:[address]: Norberto Zamora DEPT: IMMUNOHISTOCHEMISTRY RECD BY: Vadim Cook ENTERED: 05/21/24 14:39 SP TYPE: IMMUNO OTHR DR: Dr. Juan Jose Brenner MD Tissues: A - Gastric mucous membrane Procedures: H Pylori (initial) PHYSICIAN & INSTITUTION [place] [address] SPECIMEN INFORMATION: Tissue Source: A- Gastric antrum Clinical Info: Irritable bowel syndrome Specimen Number: [id number] CPT code: 41696 METHODOLOGY: Deparaffinized sections of prefer/formalin-fixed tissue or PAP/DQ stained slides are incubated with monoclonal/polyclonal antibodies/oligonucleotide probes. Localization is made via biotin free immunoperoxidase method. Appropriate controls are performed and reacted as expected. Results on target cell population are indicated in the following table: RESULTS: ANTIBODY / CLONE RESULT Block A H Pylori (polyclonal) negative These tests were developed and their performance characteristics determined by [facility]. They may not have been cleared or approved by the U.S. Food and Drug Administration. The FDA has determined that such clearance or approval is not necessary. The above immunohistochemical/dualISH markers are ordered and reviewed by the Pathologist. INTERPRETATION: A. Gastric antrum, biopsy: Negative for Helicobacter pylori organisms. 05/22/2024
--- NOTE | 2024-05-21 11:32 | PRE.ANES_ITS ---
ASA Classification* ASA Classification ASA Classification: 2 Assessment & Plan Anesthesia* Anesthesia Assessment Anesthesia Assessment: Discussed sedation and/or anesthesia options, risks, benefits, and alternatives with patient/parents/legal guardian/POA. Questions invited. The patient/parents/legal guardian/POA seems to understand and agrees to proceed with anesthesia plan. Reviewed the physical assessment, medical history, allergy history and patient home medications list prior to surgery/procedure/anesthetic and documented any changes. Performed airway and anesthesia risk assessments. Anesthesia Type Anesthesia Type: MAC History Source History Obtained from:: Patient and Chart Anesthesia Focused Assessment* Temperature: 97.7 F Pulse Rate: 103 Blood Pressure: 130/84 Respiratory Rate: 16 Pulse Ox: 98 Oxygen Delivery Method: Room Air Airway Assessment Mouth opens: >3 cm Mallampati Score: III Teeth Condition: Intact Neck Range of motion (ROM): Full ROM Focused Labs Anesthesia Preop lab: CBC WBC 6.8 K/mm3 (4.4-11.0) 04/03/24 16:04 RBC 4.01 M/mm3 (4.2-5.4) L 04/03/24 16:04 Hgb 12.6 g/dL (12.0-15.0) 04/03/24 16:04 Hct 37.9 % (37-47) 04/03/24 16:04 Plt Count 331 K/mm3 (150-450) 04/03/24 16:04 CHEMISTRY Potassium 3.7 mmol/L (3.5-5.1) 04/03/24 16:04 Sodium 137 mmol/L (136-145) 04/03/24 16:04 Magnesium 1.6 mg/dL (1.8-2.4) L 12/21/13 12:23 Phosphorus 3.9 mg/dL (2.5-4.9) 12/21/13 12:23 BUN 13 mg/dL (7-18) 04/03/24 16:04 Creatinine 0.79 mg/dL (0.55-1.02) 04/03/24 16:04 Glucose 95 mg/dL (74-106) 04/03/24 16:04 TSH 0.883 uIU/mL (0.358-3.740) 04/03/24 16:04 COAG PT 13.2 SECONDS (11.9-14.4) 04/21/13 16:05 Pre-Assessment Diagnosis/Proposed Procedure Planned Operative Procedure(s): COLONOSCOPY/EGD Anesthesia History 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 When Was Last Pacemaker Check QUESTION #4 FULL TEXT: You/Your Family Experience fever (hyperthermia) with Anesthesia Last Oral Intake Last Oral intake: Last Oral Intake NPO since 00:00 05/21/24 10:49 Meds taken in AM with sips of No 05/21/24 10:49 water? Meds patient instructed to take am of surgery Any additional information?: Yes NPO since: 08:15 (Patient had sprite at 8:15 AM) PONV PONV - design engineering intern: PONV - design engineering intern Female Yes 05/18/24 11:10 HX of Motion Sickness Yes 05/18/24 11:10 HX of N/V After Surgery No 05/18/24 11:10 Non-Smoker Yes 05/18/24 11:10 Duration of Surgery greater No 05/18/24 11:10 than 60 minutes Number of Risk Factors 3 05/18/24 11:10 PONV Score Moderate Risk 05/18/24 11:10 Height & Weight Height & Weight: Anesthesia: Height & Weight Height 5 ft 05/21/24 10:49 Weight: 51 kg 05/21/24 10:49 Body Mass Index (BMI) 21.9 05/21/24 10:49 Respiratory Assessment Respiratory Assessment - design engineering intern: Respiratory Tract Infection Hx - design engineering intern Hx Respiratory Tract Infection No 05/18/24 11:10 STOP Sleep Apnea STOP Sleep Apnea - design engineering intern: STOP Sleep Apnea - design engineering intern Hx Hypertension No 05/18/24 11:10 Hx Sleep Apnea No 05/18/24 11:10 CPAP No 05/18/24 11:10 BIPAP No 05/18/24 11:10 Do you snore loudly (louder No 05/18/24 11:10 than talking or can be heard Do you often feel tired/ No 05/18/24 11:10 fatigued/ sleepy during daytime? Has anyone observed you stop No 05/18/24 11:10 breathing during sleep? STOP Results Negative 05/18/24 11:10 QUESTION #5 FULL TEXT : Do you snore loudly (louder than talking or can be heard through closed doors)? Tobacco Use History Tobacco Use History - design engineering intern: Tobacco Use History - design engineering intern Tobacco Use Non-smoker 02/01/21 15:49 Smoking Status Never smoker 05/18/24 11:10 Hx Tobacco Use No 05/18/24 11:10 Years Smoking Packs Smoked per Day Smoking Cessation Date was within the last 15 years Hx Smoking Cessation Date Hx Smoking Cessation Counseling Hematologic Medial History Hematologic Hx - design engineering intern: Hematologic Medical Hx - rn clinical documentation Hx of Blood Transfusion No 05/18/24 11:10 Hx of Transfusion in last 3 No 05/18/24 11:10 Months Date of Last Transfusion (if within last 3 months) Ever experience any problems No 05/18/24 11:10 with transfusion(s)? Specify any problems Hx of Preganancy in last 3 No 05/18/24 11:10 Months Nurse Filling Out Transfusion VCHRISTIN 05/18/24 11:10 & Questions: Date: 05/18/24 05/18/24 11:10 Time: 11:11 05/18/24 11:10 Patient unable to answer at this time (ie. confused, unrespo /Reproduction History /Reproductive History - design engineering intern: /Reproductive Hx- design engineering intern Hx Now Gestational Age (in weeks): EDC: Hx Hx Para Hx Section SAB [facility] Medical History Wears glasses Post-menopausal Non-smoker History of stress test Chronic diarrhea Nausea Muscle spasm Vitamin D deficiency Migraine headache Osteoarthritis Cervical radiculopathy Right carpal tunnel syndrome Tenosynovitis of hand or wrist Chest pain Lymphocytic colitis Raynaud's disease History of migraine History of irritable bowel syndrome Benign hypertension Home Medications ?Medication ?Instructions ?Recorded ?Last Taken ?Type edvyhhqf-zbp-blgew acid 0.4 1 cap PO DAILY 04/21/13 04/22/14 History mg-lycopene 300 mcg-lutein 250 mcg tablet topiramate 25 mg tablet 25 mg PO DAILY 04/21/13 04/23/14 History cholecalciferol (vitamin D3) 25 1,000 unit PO DAILY 04/23/14 04/22/14 History mcg (1,000 unit) capsule biotin 1 mg capsule 1 cap PO DAILY 04/08/17 Unknown History cyclobenzaprine 10 mg tablet 10 mg PO QHS 04/17/17 Unknown Rx almotriptan malate 12.5 mg tablet 12.5 mg PO ONCE PRN migraines 10/02/18 Unknown History potassium bicarbonate-citric acid 20 meq PO .prn PRN low potassium 10/02/18 Unknown History 20 mEq effervescent tablet (Effer-K) vilazodone 20 mg tablet (Viibryd) 20 mg PO DAILY 10/02/18 Unknown History calcium 315 mg (as 2 tab PO DAILY 01/31/19 Unknown History citrate)-vitamin D3 6.25 mcg (250 unit) tablet valacyclovir 500 mg tablet 500 mg PO DAILY 01/31/19 Unknown History rifaximin 550 mg tablet 550 mg PO TID IBS-D #42 tabs 04/03/24 Unknown Rx colestipol 5 gram oral granules 5 g PO QHS #500 grams 04/20/24 Unknown Rx jnbpvl-cyrmnxss-fzhfhqh 1 cap PO .w/meals Exocrine 04/29/24 Unknown Rx 3,000-9,500-15,000 unit capsule, Pancreatic Insufficiency K86.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 rel (Creon) #300 caps fyucfxwh-tjmsgvew-sfr C 250 1 tab PO TID 05/18/24 Unknown History mg-herbal no.124 11.66 mg chewable tablet (Airborne Gummy) oxybutynin chloride 10 mg 10 mg PO DAILY 05/18/24 Unknown History tablet,extended release 24 hr Allergy/AdvReac Type Severity Reaction Status Date / Time morphine Allergy Severe Other Verified 05/21/24 10:33 calcitonin Allergy Intermediate nausea Verified 05/21/24 10:33 acetaminophen (From Vicodin) Allergy Itching Verified 05/21/24 10:33 chlordiazepoxide Allergy Itching Verified 05/21/24 10:33 clidinium (Clidinium) Allergy Itching Verified 05/21/24 10:33 dicyclomine Allergy Itching Verified 05/21/24 10:33 escitalopram oxalate (From Allergy Unknown Verified 05/21/24 10:33 Lexapro) fluoxetine HCl (From Prozac) Allergy Unknown Verified 05/21/24 10:33 hydrocodone (From Vicodin) Allergy Itching Verified 05/21/24 10:33 medroxyprogesterone Allergy Unknown Verified 05/21/24 10:33 metoprolol succinate (From Allergy Unknown Verified 05/21/24 10:33 Toprol XL) paroxetine HCl (From Paxil) Allergy Unknown Verified 05/21/24 10:33 Penicillins (PCN) AdvReac Severe Nausea/Vom/ Verified 05/21/24 10:33 Diarrhea eletriptan HBr (From Relpax) AdvReac Chest Verified 05/21/24 10:33 tightness ketorolac tromethamine (From AdvReac Chest Verified 05/21/24 10:33 Toradol) tightness medroxyprogesterone acetate AdvReac Nausea Verified 05/21/24 10:33 (From Provera) metronidazole (From Flagyl) AdvReac Nausea Verified 05/21/24 10:33 norethindrone AdvReac Nausea Verified 05/21/24 10:33 prednisone AdvReac Chest Verified 05/21/24 10:33 tightness Family History Grandmother Diabetes Father Heart disease Surgical History History of colonoscopy (~10/15/18) History of esophagogastroduodenoscopy (EGD) (~10/15/18) History of bladder suspension procedure history right hand surgery Social History Smoking Status: Never smoker alcohol intake: current alcohol intake frequency: a few times a month substance use type: does not use Review of Systems (Anesthesia) ROS Narrative System reviewed and no additional complaints, except as documented.
--- NOTE | 2024-05-21 11:36 | PCM.HP.BLA ---
History and Physical Date of Admission: 05/21/24 OV 04.03.24 Pt here for IBS. Pt reports diarrhea 3-4 times a day for the past year and occasional abdominal pain. Denies blood in stool, N/V. Pt last colonoscopy and EGD was in 2012. Takes budesonide 3mg daily. [facility] Medical History (Updated 04/03/24 @ 15:44 by ALVARO Mora) Chronic diarrhea Nausea Muscle spasm Vitamin D deficiency Migraine headache Osteoarthritis Cervical radiculopathy Right carpal tunnel syndrome Tenosynovitis of hand or wrist Chest pain Lymphocytic colitis Raynaud's disease History of migraine History of irritable bowel syndrome Benign hypertension Surgical History (Updated 02/01/22 @ 00:35 by Gerald Montgomery) History of colonoscopy (~10/15/18) History of esophagogastroduodenoscopy (EGD) (~10/15/18) History of bladder suspension procedure history right hand surgery Family History Grandmother DiabetesFather Heart disease Social History (Updated 11/04/18 @ 09:[address] Tomas Newby MD) Smoking Status: Never smoker alcohol intake: current alcohol intake frequency: a few times a month substance use type: does not use HPI HPI Chief Complaint: R Thumb CMC Arthroplasty Details: KARIE HOYOS, is a 63 F who presents to the office today for establishment with [facility] for complaints of having an IBS flare with history of lymphocytic colitis. She reports diarrhea with urge incontinence, intermittently associated with pain that is partially relieved with the BM. She reports severe bloated and full abdomen pressure without excessive belching or flatulence. Denies difficulty chewing and swallowing, nausea, vomiting, and abdominal pain; reports occasional heartburn that's remedied by a Tums. Denies hematochezia and melena. Denies fever and chills. ROS Const Constitutional: Positive for fatigue, headache(s) and weight change; No fever(s) Eyes Eyes: No change in vision ENT ENT: Positive for headache(s); No abnormal hearing or difficulty swallowing Resp Respiratory: No cough Cardio Cardiology: No chest pain at rest or chest pain with exertion Gastro GI: Positive for abdominal pain, bloating, diarrhea and incontinent of stools; No belching, change in bowel habits, change in stool character, coffee ground emesis, constipation, cramping, heartburn, difficulty swallowing, feeling full early, excessive flatus, Vomiting blood/hematemesis, Blood in stool, loose stools, Black,tarry stools, nausea/dyspepsia, pain with swallowing, vomiting or other Genitourinary-Female: No difficulty urinating Musc Musculoskeletal: Positive for stiffness and Arthritis; No joint pain Skin Skin: No yellowing of the eye or itchy eyes Neuro Neurology: Positive for headache(s); No abnormal hearing Psych Psychiatric: No anxiety and No depression Endo Endocrine: Positive for fatigue and weight change Aller/Imm Allergy/Immunologic: No food intolerance or itchy eyes Hector/Lymp Hematologic/Lymphatic: Positive for easy bruising; No easy bleeding Exam Const General: cooperative, healthy appearing, comfortable and no acute distress Nutritional Appearance: average body habitus Orientation: alert HENWY Head: normal to inspection Ears: hearing grossly normal bilaterally Nose: external nose normal Face and sinus: normal facial exam and face symmetric Eyes General: appearance normal, both eyes and all related structures Sclera: sclerae normal Neck Neck: normal visual inspection and full ROM Neck mass: No Chest Chest palpation & inspection: normal inspection of the chest Resp Effort & Inspection: normal respiratory effort, able to speak in complete sentences and symmetric chest movement GI Inspection: normal to inspection Skin General: no rashes or lesions noted Neuro General: patient alert, patient awake and patient oriented x3 Cranial Nerves: CN's II-XI intact bilaterally Cognition: normal cognition Speech: speech normal Gait: normal gait Extrem General: full ROM Psych Appearance: well kempt Assessment and Plan Assessment and Plan (1) Irritable bowel syndrome with diarrhea: Status: Acute Plan: KARIE HOYOS, is a 63 F who presents to the office today for establishment with [facility] for complaints of having an IBS flare with history of lymphocytic colitis. Differential diagnoses include: IBS-D, IBD, lymphocytic colitis, SIBO. rifaximin 550mg PO TID [id number], 2RF for IBS-D probiotic PO BID 2weeks, starting second week of rifaximin tx taper off budesonide 3mg PO; week 1: 3mg every other day, week 2: 3mg on Saturday/Saturday only, then stop. blood for IBS/D, inflammatory markers stool for enteric, inflammatory markers call with results office follow-up in 3 months Orders: Orders Allergen, Food Profile 14 Today K58.0 - Irritable bowel syndrome with diarrhea CRP Today K58.0 - Irritable bowel syndrome with diarrhea Immunoglobulins G/A/M/E Today K58.0 - Irritable bowel syndrome with diarrhea ODILIA Comprehensive Panel Today K58.0 - Irritable bowel syndrome with diarrhea ENTERIC PATHOGEN PANEL STOOL Today K58.0 - Irritable bowel syndrome with diarrhea LDH Today K58.0 - Irritable bowel syndrome with diarrhea ANCA Today K58.0 - Irritable bowel syndrome with diarrhea Erythrocyte Sed Rate Today K58.0 - Irritable bowel syndrome with diarrhea Ova and Parasites [id number] Today K58.0 - Irritable bowel syndrome with diarrhea Calprotectin, Stool Today K58.0 - Irritable bowel syndrome with diarrhea Free T3 Today K58.0 - Irritable bowel syndrome with diarrhea Pancreatic Elastase, Fecal Today K58.0 - Irritable bowel syndrome with diarrhea CBC W/Diff, Automated Today K58.0 - Irritable bowel syndrome with diarrhea Giardia Lamblia, Stool EIA Today K58.0 - Irritable bowel syndrome with diarrhea Stool Lactoferrin/WBC Today K58.0 - Irritable bowel syndrome with diarrhea CDIFF (PCR) Today K58.0 - Irritable bowel syndrome with diarrhea IBD Expanded Profile Today K58.0 - Irritable bowel syndrome with diarrhea T4 Free Direct Today K58.0 - Irritable bowel syndrome with diarrhea Celiac Disease Profile Today K58.0 - Irritable bowel syndrome with diarrhea EDGAR + Protein Elect, Serum Today K58.0 - Irritable bowel syndrome with diarrhea Thyroid Stim Hormone (TSH) Today K58.0 - Irritable bowel syndrome with diarrhea Comprehensive Metabolic Profil Today K58.0 - Irritable bowel syndrome with diarrhea Medications: New rifaximin 550 mg PO TID 42 tabs 2RF IBS-D lactobacillus combination no.4 administer with a meal. Start probiotic on week 2 of rifaximin. 3,000 mmu cells PO BID 28 caps 0RF 2 weeks I have examined the patient and the H&P has been reviewed. There are no clinical changes since date of exam.
--- NOTE | 2024-05-21 12:48 | PCM.POST.ANE ---
Anesthesia: Postop Eval I Current Vital Signs Temperature: 97 F Pulse Rate: 97 Blood Pressure: 103/70 Respiratory Rate: 18 Pulse Ox: 95 Assessment Airway patent: Yes Spontaneous unlabored respirations: Yes nausea: No Vomiting: No Anesthesia Complication: No Fluid Hydration Crystalloid volume administer (ml): 10 Total IV fluid infused: 10 Progress Note Anesthesia document: Postop Eval 1 completed: Yes
--- NOTE | 2024-05-21 12:52 | OP.EGD_ITS ---
Patient Name: Karie Loo Procedure Date: 05/21/2024 12:03 PM Date of : 1960 Age: 63 Procedure: Upper GI endoscopy Indications: Functional Dyspepsia, Heartburn Providers: Norberto Zamora DO Medicines: Monitored Anesthesia Care Patient Profile: This is a 63 year old female. Refer to note in patient chart for documentation of history and physical. Patient has symptoms of chronic abdominal cramping, chronic dyspepsia and chronic heartburn. Complications: No immediate complications. Procedure: Pre-Anesthesia Assessment: - Prior to the procedure, a History and Physical was performed, and patient medications and allergies were reviewed. The patient is competent. The risks and benefits of the procedure and the sedation options and risks were discussed with the patient. All questions were answered and informed consent was obtained. Patient identification and proposed procedure were verified by the physician in the pre-procedure area. Mental Status Examination: alert and oriented. Airway Examination: normal oropharyngeal airway and neck mobility. Respiratory Examination: clear to auscultation. CV Examination: normal. Prophylactic Antibiotics: The patient does not require prophylactic antibiotics. Prior Anticoagulants: The patient has taken no anticoagulant or antiplatelet agents except for NSAID medication. ASA Grade Assessment: II - A patient with mild systemic disease. After reviewing the risks and benefits, the patient was deemed in satisfactory condition to undergo the procedure. The anesthesia plan was to use monitored anesthesia care (MAC). Immediately prior to administration of medications, the patient was re-assessed for adequacy to receive sedatives. The heart rate, respiratory rate, oxygen saturations, blood pressure, adequacy of pulmonary ventilation, and response to care were monitored throughout the procedure. The physical status of the patient was re-assessed after the procedure. After obtaining informed consent, the endoscope was passed under direct vision. Throughout the procedure, the patient's blood pressure, pulse, and oxygen saturations were monitored continuously. The pediatric colonoscope was introduced through the mouth, and advanced to the second part of duodenum. The upper GI endoscopy was accomplished without difficulty. The patient tolerated the procedure well. Scope In: 12:11:16 PM Scope Out: 12:15:05 PM Total Procedure Duration Time 0 hours 3 minutes 49 seconds Findings: The Z-line was irregular and was found 38 cm from the incisors. Biopsies were taken with a cold forceps for histology. Verification of patient identification for the specimen was done. Estimated blood loss was minimal. Patchy mildly erythematous mucosa without bleeding was found in the gastric body. Biopsies were taken with a cold forceps for histology. Verification of patient identification for the specimen was done. Estimated blood loss was minimal. Biopsies were taken with a cold forceps for Helicobacter pylori testing. Verification of patient identification for the specimen was done. Estimated blood loss was minimal. No gross lesions were noted in the first portion of the duodenum. Impression: - Z-line irregular, 38 cm from the incisors. Biopsied. - Erythematous mucosa in the gastric body. Biopsied. - No gross lesions in the first portion of the duodenum. Recommendation: - Discharge patient to home. - Resume previous diet. - Continue present medications. - Await pathology results. Procedure Code(s): --- Professional --- 09814, Esophagogastroduodenoscopy, flexible, transoral; with biopsy, single or multiple CPT copyright 2021 [employer]. All rights reserved. The codes documented in this report are preliminary and upon butcher fish review may be revised to meet current compliance requirements. Norberto Zamora DO 05/21/2024 12:52:09 PM This report has been signed electronically. Number of Addenda: 0 Note Initiated On: 05/21/2024 12:03 PM
--- NOTE | 2024-05-21 12:53 | OP.CCLET_ITS ---
05/21/2024 Juan Jose Brenner MD [address] [place] [address] Re : Upper GI endoscopy procedure for Karie Loo Dear Dr. Brenner This procedure was performed on May. My impressions and recommendations are as follows: Impressions : - Z-line irregular, 38 cm from the incisors. Biopsied. - Erythematous mucosa in the gastric body. Biopsied. - No gross lesions in the first portion of the duodenum. Recommendations : - Discharge patient to home. - Resume previous diet. - Continue present medications. - Await pathology results. My findings are described in the full procedure note, which is enclosed. If I can be of further assistance, please feel free to contact me at . Sincerely, Norberto Zamora, 05/21/2024 12:52:09 PM This report has been signed electronically.
--- NOTE | 2024-05-21 12:55 | OP.CCLET_ITS ---
05/21/2024 Juan Jose Brenner MD [address] [place] [address] Re : Colonoscopy procedure for Karie Loo Dear Dr. Brenner This procedure was performed on May. My impressions and recommendations are as follows: Impressions : - Tortuous colon. - Congested mucosa in the sigmoid colon, in the transverse colon, at the hepatic flexure and in the ascending colon. Biopsied. Recommendations : - Discharge patient to home. - Resume previous diet. - Continue present medications. - Await pathology results. - Repeat colonoscopy for surveillance based on pathology results. - Repeat colonoscopy in 10 years for screening purposes. My findings are described in the full procedure note, which is enclosed. If I can be of further assistance, please feel free to contact me at . Sincerely, Norberto Zamora, 05/21/2024 12:54:40 PM This report has been signed electronically.
--- NOTE | 2024-05-21 12:55 | OP.COLON_ITS ---
Patient Name: Karie Loo Procedure Date: 05/21/2024 12:16 PM Date of : 1960 Age: 63 Procedure: Colonoscopy Indications: Screening for colorectal malignant neoplasm Providers: Norberto Zamora DO Medicines: Monitored Anesthesia Care Patient Profile: This is a 63 year old female. Refer to note in patient chart for documentation of history and physical. Patient has symptoms of chronic abdominal cramping, chronic dyspepsia and chronic heartburn. Last Colonoscopy: more than 10 years ago. Complications: No immediate complications. Procedure: Pre-Anesthesia Assessment: - Prior to the procedure, a History and Physical was performed, and patient medications and allergies were reviewed. The patient is competent. The risks and benefits of the procedure and the sedation options and risks were discussed with the patient. All questions were answered and informed consent was obtained. Patient identification and proposed procedure were verified by the physician in the pre-procedure area. Mental Status Examination: alert and oriented. Airway Examination: normal oropharyngeal airway and neck mobility. Respiratory Examination: clear to auscultation. CV Examination: normal. Prophylactic Antibiotics: The patient does not require prophylactic antibiotics. Prior Anticoagulants: The patient has taken no anticoagulant or antiplatelet agents except for NSAID medication. ASA Grade Assessment: II - A patient with mild systemic disease. After reviewing the risks and benefits, the patient was deemed in satisfactory condition to undergo the procedure. The anesthesia plan was to use monitored anesthesia care (MAC). Immediately prior to administration of medications, the patient was re-assessed for adequacy to receive sedatives. The heart rate, respiratory rate, oxygen saturations, blood pressure, adequacy of pulmonary ventilation, and response to care were monitored throughout the procedure. The physical status of the patient was re-assessed after the procedure. After I obtained informed consent, the scope was passed under direct vision. Throughout the procedure, the patient's blood pressure, pulse, and oxygen saturations were monitored continuously. The pediatric colonoscope was introduced through the anus and advanced to the cecum, identified by appendiceal orifice and ileocecal valve. The colonoscopy was performed without difficulty. The patient tolerated the procedure well. The quality of the bowel preparation was good. The ileocecal valve, appendiceal orifice, and rectum were photographed. Scope In: 12:16:58 PM Scope Withdrawal Time 0 hours 9 minutes 9 seconds Scope Out: 12:45:30 PM Total Procedure Duration Time 0 hours 28 minutes 32 seconds Findings: The perianal and digital rectal examinations were normal. The recto-sigmoid colon and sigmoid colon were significantly tortuous. An area of mildly congested mucosa was found in the sigmoid colon, in the transverse colon, at the hepatic flexure and in the ascending colon. Biopsies were taken with a cold forceps for histology. Verification of patient identification for the specimen was done. Estimated blood loss was minimal. Impression: - Tortuous colon. - Congested mucosa in the sigmoid colon, in the transverse colon, at the hepatic flexure and in the ascending colon. Biopsied. Recommendation: - Discharge patient to home. - Resume previous diet. - Continue present medications. - Await pathology results. - Repeat colonoscopy for surveillance based on pathology results. - Repeat colonoscopy in 10 years for screening purposes. Procedure Code(s): --- Professional --- 74427, Colonoscopy, flexible; with biopsy, single or multiple CPT copyright 2021 [employer]. All rights reserved. The codes documented in this report are preliminary and upon extruder operator multiple review may be revised to meet current compliance requirements. Norberto Zamora DO 05/21/2024 12:54:40 PM This report has been signed electronically. Number of Addenda: 0 Note Initiated On: 05/21/2024 12:16 PM
--- NOTE | 2024-05-22 11:26 | POSTOPAN2_ITS ---
Anesthesia Postop Eval I Sum Postop Eval Completion status Anesthesia document: Postop Eval 1 completed: Yes Anesthesia Postop Eval I Summary Anesthesia Postop Eval I Summary: Anesthesia Postop Eval I: Assessment Summary Airway patent Yes 05/21/24 12:48 CAFETERIA [email or web address] Spontaneous unlabored Yes 05/21/24 12:48 CAFETERIA [email or web address] respirations Mental status nausea No 05/21/24 12:48 CAFETERIA SUPERVISOR.[email or web address] Vomiting No 05/21/24 12:48 CAFETERIA SUPERVISOR.CSIR Anesthesia Postop Eval I: Fluid Summary Crystalloid volume administer 10 05/21/24 12:48 CAFETERIA SUPERVISOR.CSIR (ml) Colloids volume administered ( ml) Blood Product volume administered (ml) Total IV fluid infused 10 05/21/24 12:48 CAFETERIA SUPERVISOR.CSIR Anesthesia Postop Eval I: Summary Notes Anesthesia Complication No 05/21/24 12:48 CAFETERIA SUPERVISOR.CSIR Anesthesia Complication Comment: Post-operative progress note Anesthesia: Postop Eval II Evaluation Mental status: Awake and Calm Pain Level: 0 nausea: No Vomiting: No Complications Anesthesia Complication: No
--- NOTE | 2024-05-22 11:26 | PCM.POSTANE2 ---
Anesthesia Postop Eval I Sum Postop Eval Completion status Anesthesia document: Postop Eval 1 completed: Yes Anesthesia Postop Eval I Summary Anesthesia Postop Eval I Summary: Anesthesia Postop Eval I: Assessment Summary Airway patent Yes 05/21/24 12:48 STITCHING MACHINE FEEDER OR [email or web address].[email or web address] Spontaneous unlabored Yes 05/21/24 12:48 STITCHING MACHINE FEEDER OR [email or web address].CSIR respirations Mental status nausea No 05/21/24 12:48 STITCHING MACHINE FEEDER OR OFFBEARER.CSIR Vomiting No 05/21/24 12:48 STITCHING MACHINE FEEDER OR [email or web address].CSIR Anesthesia Postop Eval I: Fluid Summary Crystalloid volume administer 10 05/21/24 12:48 STITCHING MACHINE FEEDER OR OFFBEARER.CSIR (ml) Colloids volume administered ( ml) Blood Product volume administered (ml) Total IV fluid infused 10 05/21/24 12:48 STITCHING MACHINE FEEDER OR [email or web address].CSIR Anesthesia Postop Eval I: Summary Notes Anesthesia Complication No 05/21/24 12:48 STITCHING MACHINE FEEDER OR [email or web address].CSIR Anesthesia Complication Comment: Post-operative progress note Anesthesia: Postop Eval II Evaluation Mental status: Awake and Calm Pain Level: 0 nausea: No Vomiting: No Complications Anesthesia Complication: No
== END 2024-05-21 14:02 | disposition home or self-care (01) ==
LOC: EN 10:15 → AC 10:16
PROVIDERS: PCP Family Medicine Geriatric Medicine; Referring Provider Family Medicine Geriatric Medicine; Visit Provider Internal Medicine Gastroenterology
PROC: 0DJD8ZZ Inspection of Lower Intestinal Tract, Via Natural or Artificial Opening Endoscopic (ICD-10-PCS; CPT 45378; principal; 2024-05-21 11:25)
DX: K29.70 Gastritis, unspecified, without bleeding (principal); K58.0 Irritable bowel syndrome with diarrhea; I10 Essential (primary) hypertension; Z79.899 Other long term (current) drug therapy; Q43.8 Other specified congenital malformations of intestine
CPT/HCPCS: 43239; 45380; 88305; 88312; 88342; A4216; J2405

== ENCOUNTER → 2024-06-08 | Outpatient (CLI) | payer BC, SELFPAY ==
[2024-06-08 18:29] LABS: ALB/GLOB Ratio 1.1 RATIO (0.9-2.4); AST(SGOT) 26 U/L (15-37); Alanine Aminotransfer ALT/SGPT 29 U/L (13-56); Albumin, Serum 3.7 g/dL (3.2-5.0); Alkaline Phosphatase 71 U/L (45-117); Anion Gap 7 (5-15); BUN 13 mg/dL (7-18); BUN/Creat Ratio 15.7 RATIO (10-20); Calcium,Total 8.9 mg/dL (8.5-10.1); Chloride 111 mmol/L (98-107); Creatinine, Serum 0.83 mg/dL (0.55-1.02); EST Glomerular Filtration Rate 75 mL/min (>60); Est Glom Filt Rate - Afr Amer 90 mL/min (>60); Globulin 3.5 g/dL (2.2-4.2); Glucose 81 mg/dL (74-106); Phosphorus 3.1 mg/dL (2.5-4.9); Protein, Total 7.2 g/dL (6.4-8.2); Sodium Level 140 mmol/L (136-145)
[2024-06-08 18:34] LABS: Vitamin D,25 Hydroxy 51.3 ng/mL
[2024-06-12 11:07] LABS: Vitamin D 1,25-Dihydroxy 25.4 pg/mL (24.8-81.5)
== END | disposition home or self-care (01) ==
PROVIDERS: PCP Family Medicine Geriatric Medicine; Referring Provider Internal Medicine Gastroenterology; Visit Provider Internal Medicine Gastroenterology
DX: K52.831 Collagenous colitis (principal); I73.00 Raynaud's syndrome without gangrene
CPT/HCPCS: 36415; 80053; 82306; 82652; 83735; 84100

== ENCOUNTER → 2024-06-25 | Outpatient (CLI) | payer BC, SELFPAY ==
[2024-06-25 08:18] LABS: Magnesium 2.1 mg/dL (1.6-2.6); Potassium 3.3 mmol/L (3.5-5.1)
== END | disposition home or self-care (01) ==
LOC: LAB 07:22
PROVIDERS: PCP Family Medicine Geriatric Medicine; Referring Provider Internal Medicine Gastroenterology; Visit Provider Internal Medicine Gastroenterology
DX: E87.6 Hypokalemia (principal); E83.42 Hypomagnesemia
CPT/HCPCS: 36415; 83735; 84132

== ENCOUNTER → 2024-07-15 | Outpatient (CLI) | payer BC, SELFPAY ==
[2024-07-15 10:52] LABS: Potassium 3.9 mmol/L (3.5-5.1)
== END | disposition home or self-care (01) ==
LOC: LAB 10:31
PROVIDERS: PCP Family Medicine Geriatric Medicine; Visit Provider Internal Medicine Gastroenterology
DX: K52.831 Collagenous colitis (principal); E87.6 Hypokalemia
CPT/HCPCS: 36415; 83735; 84132

== ENCOUNTER → 2024-08-25 | Outpatient (CLI) | payer BC, SELFPAY ==
[2024-08-25 17:28] LABS: Absolute Lymphocyte Count 2.62 X10^3/uL (0.83-4.51); Absolute Neutrophil Count 4.9 X10^3/uL (2.0-7.7); Basophil# 0.04 X10^3/uL; Basophil% 0.5 % (0-1); Hematocrit 40.7 % (37-47); Hemoglobin 13.9 g/dL (12.0-15.0); Lymphocyte # 2.62 X10^3/ul (0.83-4.51); Lymphocyte % 32.3 % (19-41); Mean Corp Hgb Conc 34.2 g/dL (32-36); Mean Corpuscular Hgb 31.9 pg (27.0-32.0); Mean Corpuscular Volume 93.3 fL (81-99); Mean Platelet Vol. 8.9 fl (6.2-12.0); Monocyte# 0.56 X10^3/uL; Monocyte% 6.9 % (0-10); NRBC Flagged by Analyzer 0 % (0-5); Neutrophil # 4.87 X10^3/uL (2.7-7.7); Neutrophil % 60.1 % (47-70); Platelet Count 299 K/mm3 (150-450); RBC Distribution Width CV 12.5 % (11.6-14.6); RBC Distribution Width SD 43.5 fl (35.1-43.9); Red Blood Count 4.36 M/mm3 (4.2-5.4); White Blood Count 8.1 K/mm3 (4.4-11.0)
[2024-08-25 18:06] LABS: Vitamin D,25 Hydroxy 58.8 ng/mL
[2024-08-25 18:53] LABS: ALB/GLOB Ratio 1.2 RATIO (0.9-2.4); AST(SGOT) 24 U/L (15-37); Alanine Aminotransfer ALT/SGPT 29 U/L (13-56); Albumin, Serum 4.3 g/dL (3.2-5.0); Alkaline Phosphatase 77 U/L (45-117); Anion Gap 9 (5-15); BUN 21 mg/dL (7-18); BUN/Creat Ratio 22.2 RATIO (10-20); Calcium,Total 9.3 mg/dL (8.5-10.1); Chloride 102 mmol/L (98-107); Creatinine, Serum 0.95 mg/dL (0.55-1.02); EST Glomerular Filtration Rate 64 mL/min (>60); Est Glom Filt Rate - Afr Amer 77 mL/min (>60); Globulin 3.7 g/dL (2.2-4.2); Glucose 98 mg/dL (74-106); Potassium 4.1 mmol/L (3.5-5.1); Sodium Level 137 mmol/L (136-145)
== END | disposition home or self-care (01) ==
LOC: LAB 17:11
PROVIDERS: PCP Family Medicine Geriatric Medicine; Referring Provider Family Medicine Geriatric Medicine; Visit Provider Family Medicine Geriatric Medicine
DX: I10 Essential (primary) hypertension (principal); E55.9 Vitamin D deficiency, unspecified
CPT/HCPCS: 36415; 80053; 82306; 84443; 85025

== ENCOUNTER → 2024-09-07 | Outpatient (CLI) | payer BC, SELFPAY | END | disposition home or self-care (01) | LOC: POLAB3 17:09 | PROVIDERS: PCP Family Medicine Geriatric Medicine; Visit Provider Family Medicine Geriatric Medicine | DX: R68.83 Chills (without fever) (principal) | CPT/HCPCS: 87631 ==

== ENCOUNTER → 2024-09-24 | Outpatient (CLI) | payer BC, SELFPAY ==
--- NOTE | 2024-09-24 07:07 | BI_ITS ---
PROCEDURE: SCRN MAMM (CAD)W/ELIAN BILAT REASON FOR EXAM: F, Age 64 y/o , SCREENING. No family history. TECHNIQUE: Bilateral screening digital breast tomosynthesis with 2D and 3D images. Computer aided detection. COMPARISON: Prior exam(s) dating back to September 16, 2023.. FINDINGS: The breasts are heterogeneously dense which may obscure small masses. Stable examination. No suspicious masses, areas of developing architectural distortion, or suspicious calcifications. BI/SCRN MAMM (CAD)W/ELIAN BILAT IMPRESSION: BI-RADS 1: NEGATIVE. RECOMMEND ANNUAL MAMMOGRAPHIC SCREENING. Follow-up code: Routine Follow-up The patient will be notified of the results by letter. Reading Location: [id number]
== END | disposition home or self-care (01) ==
LOC: OPBI 07:05
PROVIDERS: PCP Family Medicine Geriatric Medicine; Referring Provider Obstetrics & Gynecology; Visit Provider Obstetrics & Gynecology
DX: Z12.31 Encounter for screening mammogram for malignant neoplasm of breast (principal)
CPT/HCPCS: 77063; 77067

== ENCOUNTER → 2024-11-02 | Outpatient (CLI) | payer BC, SELFPAY ==
--- NOTE | 2024-11-02 09:16 | MRI_ITS ---
CLINICAL HISTORY: Exocrine pancreatic insufficiency COMPARISON: none TECHNIQUE: TECHNIQUE: Multiplanar, multisequence MR imaging was performed through the abdomen & pelvis with and without IV contrast. FINDINGS: The stomach shows average measures and wall thickness. The small bowel: The duodenum: shows normal caliber and wall thickness. The Jejunum shows standard caliber and wall thickness. The large bowel: The cecum and ascending colon, the descending and sigmoid colon appear collapse and shows uniform wall thickness with no significant wall edema. The appendix is noted identified. The liver shows right hepatic lobe segment 2.8 x 2.1 cm mass displaying high T2 signal and showing centripetal contrast fill in suggestive of hemangioma. Other multiple small non enhancing hepatic cysts are noted. Chago hepatis appears intact. Common bile duct, hepatic ducts, and intrahepatic biliary radicles are not dilated. Patent portal vein and its branches. Distended gall bladder with no dense calculi. Clear surrounding fat planes. Normal appearance of different anatomical parts of the pancreas. Both adrenals appear normal in size, shape, and configuration. Unremarkable spleen. Both kidneys appear normal in size, shape, and axis. No renal calculi. No masses, cyst or hydronephrosis was seen. Patent aorta, IVC & pelvic vasculatures. No pelvic masses related to the reproductive system. Unremarkable urinary bladder. No evidence of significant enlargement of the mesenteric or retroperitoneal lymph nodes. No ascites or pelvic collections. No free intra-peritoneal air. MRI/Enterography Abd/Pel IMPRESSION: No obvious small bowel inflammatory changes or obvious masses. Right hepatic lobe hemangioma and multiple small hepatic cysts. Reading Location: [facility]
[2024-11-02 10:15] VITALS: BP 140/72; PULSE 81; RESP 16; O2SAT 98; BMI 23.8
[2024-11-02] MEDS: 0.9% Saline Lock 10 ML Syringe IV (11:17)
[2024-11-02] MEDS: Glucagon 1 MG/ML Syringe IV (11:17)
[2024-11-02 11:28] VITALS: BP 140/72; PULSE 87; RESP 18; O2SAT 97
== END | disposition home or self-care (01) ==
PROVIDERS: PCP Family Medicine Geriatric Medicine; Referring Provider Internal Medicine Gastroenterology; Visit Provider Internal Medicine Gastroenterology
DX: K86.81 Exocrine pancreatic insufficiency (principal); K50.90 Crohn's disease, unspecified, without complications; M32.9 Systemic lupus erythematosus, unspecified; K52.831 Collagenous colitis
CPT/HCPCS: 74183; 96374; A9585; A4216; J1610

== ENCOUNTER 2024-12-14 17:34 | Emergency (ER) | payer BC, SELFPAY ==
[2024-12-14 17:34] VITALS: BP 142/99; PULSE 113; RESP 19; TEMP 36.6; O2SAT 99; BMI 24.4
[2024-12-14 19:34] VITALS: BP 140/80; PULSE 107; RESP 15; O2SAT 99
--- NOTE | 2024-12-14 20:06 | EX.ED.VIS.HA ---
HPI History of Present Illness Chief Complaint: Headache Narrative Narrative: 64-year-old female past medical history of irritable bowel syndrome, migraine headaches, takes Topamax and almotriptan as needed for migraine headaches, presents with a headache that she has had for about a week. Of note, she states that her spa technician, Dr. Zamora, started her on hycosamine around 09 December, and 2 days later she started having a headache. Today she was nauseated but did not vomit. She endorses photophobia and phonophobia. More of a frontal headache now and radiates towards the back as well. She states that she has been taking her medications without relief of her symptoms. She has dry mouth as well. [facility] Medical History Wears glasses Post-menopausal Non-smoker History of stress test Chronic diarrhea Nausea Muscle spasm Vitamin D deficiency Migraine headache Osteoarthritis Cervical radiculopathy Right carpal tunnel syndrome Tenosynovitis of hand or wrist Chest pain Lymphocytic colitis Raynaud's disease History of migraine History of irritable bowel syndrome Benign hypertension Home Medications ?Medication ?Instructions ?Recorded ?Last Taken ?Type gqijfako-pcq-mmgse acid 0.4 1 cap PO DAILY 04/21/13 04/22/14 History mg-lycopene 300 mcg-lutein 250 mcg tablet topiramate 25 mg tablet 25 mg PO DAILY 04/21/13 04/23/14 History cholecalciferol (vitamin D3) 25 1,000 unit PO DAILY 04/23/14 04/22/14 History mcg (1,000 unit) capsule biotin 1 mg capsule 1 cap PO DAILY 04/08/17 Unknown History cyclobenzaprine 10 mg tablet 10 mg PO QHS 04/17/17 Unknown Rx almotriptan malate 12.5 mg tablet 12.5 mg PO ONCE PRN migraines 10/02/18 Unknown History vilazodone 20 mg tablet (Viibryd) 20 mg PO DAILY 10/02/18 Unknown History calcium 315 mg (as 2 tab PO DAILY 01/31/19 Unknown History citrate)-vitamin D3 6.25 mcg (250 unit) tablet valacyclovir 500 mg tablet 500 mg PO DAILY 01/31/19 Unknown History vatxtxnm-nrzzojdj-ekm C 250 1 tab PO TID 05/18/24 Unknown History mg-herbal no.124 11.66 mg chewable tablet (Airborne Gummy) oxybutynin chloride 10 mg 10 mg PO DAILY 05/18/24 Unknown History tablet,extended release 24 hr budesonide 3 mg 9 mg (3 x 3 mg) PO QAM 30 days #90 06/08/24 Unknown Rx capsule,delayed,extended release ea hyoscyamine sulfate 0.125 mg tablet 0.125 mg PO BID-QID PRN dyspepsia 12/08/24 Unknown Rx #60 tabs potassium chloride 20 mEq 20 meq PO BID 12/14/24 Unknown History tablet,extended release(part/cryst) Allergy/AdvReac Type Severity Reaction Status Date / Time morphine Allergy Severe Other Verified 11/02/24 10:11 calcitonin Allergy Intermediate nausea Verified 11/02/24 10:11 acetaminophen (From Vicodin) Allergy Itching Verified 11/02/24 10:11 chlordiazepoxide Allergy Itching Verified 11/02/24 10:11 clidinium (Clidinium) Allergy Itching Verified 11/02/24 10:11 dicyclomine Allergy Itching Verified 11/02/24 10:11 escitalopram oxalate (From Allergy Unknown Verified 11/02/24 10:11 Lexapro) fluoxetine HCl (From Prozac) Allergy Unknown Verified 11/02/24 10:11 hydrocodone (From Vicodin) Allergy Itching Verified 11/02/24 10:11 medroxyprogesterone Allergy Unknown Verified 11/02/24 10:11 metoprolol succinate (From Allergy Unknown Verified 11/02/24 10:11 Toprol XL) paroxetine HCl (From Paxil) Allergy Unknown Verified 11/02/24 10:11 Penicillins (PCN) AdvReac Severe Nausea/Vom/ Verified 11/02/24 10:11 Diarrhea eletriptan HBr (From Relpax) AdvReac Chest Verified 11/02/24 10:11 tightness ketorolac tromethamine (From AdvReac Chest Verified 11/02/24 10:11 Toradol) tightness medroxyprogesterone acetate AdvReac Nausea Verified 11/02/24 10:11 (From Provera) metronidazole (From Flagyl) AdvReac Nausea Verified 11/02/24 10:11 norethindrone AdvReac Nausea Verified 11/02/24 10:11 prednisone AdvReac Chest Verified 11/02/24 10:11 tightness Family History Grandmother Diabetes Father Heart disease Parkinsons disease Lewy body dementia Mother Parkinsons disease Surgical History History of colonoscopy (~10/15/18) History of esophagogastroduodenoscopy (EGD) (~10/15/18) History of bladder suspension procedure history right hand surgery Social History Smoking Status: Never smoker alcohol intake: current alcohol intake frequency: a few times a month substance use type: does not use ROS ROS ED ROS Narrative Review of systems positive for headache, positive nausea but no vomiting. Positive photophobia, positive phonophobia. No exacerbating or alleviating factors. EXAM Physical Exam Narrative Exam Narrative: Afebrile. Vital signs noted. Nontoxic-appearing. Cardiovascular examination reveals mild tachycardia. Lungs are clear to auscultation bilaterally. Abdomen soft and nontender with normoactive bowel sounds, no guarding or rebound. Neurological examination is nonfocal nonlateralizing. Patellar DTRs equal and symmetric. PERRL, EOMI. Positive photophobia on examination. Const Vital Signs: 12/14/24 17:34 12/14/24 19:34 12/14/24 21:00 Temperature 98 F Temperature Source Oral Pulse Rate 113 H 107 H 94 Respiratory Rate 19 H 15 14 Blood Pressure 142/99 H 140/80 H 126/71 H Blood Pressure Mean 113 100 89 Pulse Ox 99 99 97 Oxygen Delivery Method Room Air Room Air Room Air 12/14/24 22:16 Temperature 97.8 F Temperature Source Pulse Rate 68 Respiratory Rate 16 Blood Pressure 127/71 H Blood Pressure Mean 89 Pulse Ox 99 Oxygen Delivery Method MDM MDM MDM Narrative Medical decision making narrative: Differential diagnosis includes intractable migraine versus intracranial hemorrhage versus dehydration versus medication side effect. I reviewed her prior ED visits. Will obtain laboratory work and a CT of the brain. She will be administered Compazine and Benadryl to help alleviate her headache as she has multiple allergies. I reviewed her laboratory work and she has normal white count of 5.9 with hemoglobin 13.7, hematocrit 39.6, platelet count 185. Sodium is slightly low at 132 which is nonspecific with potassium 3.9, chloride 98, BUN of 12 and creatinine 0.86. Glucose 100. I reviewed the radiology report of the CT the brain and there is no acute process. Upon repeat examination after Compazine and Benadryl and IV fluids, she states that her migraine is slightly improved. I discussed with her the possibility of Decadron, but she has prednisone listed as an allergy with chest tightness. When I reentered the room, she was looking at her cellular telephone in the dark. As she was stating that she was having photophobia previously, I told her that she should not use her cellular device because it could compound her headache as well. She will be given Ativan 2 mg intravenously. She has had lorazepam on her medication list previously as well. At this point in time, I do not feel she requires admission. She will follow-up with her primary care provider for her migraine headaches. She will continue her Topamax. Disposition is discharged home in stable condition. History & Record Review Discussion w/independent historian: Patient Lab Data Attestation: I reviewed the patient's lab results. Labs: Laboratory Results - last 24 hr 12/14/24 20:25 WBC 5.9 RBC 4.29 Hgb 13.7 Hct 39.6 MCV 92.3 MCH 31.9 MCHC 34.6 RDW Std Deviation 42.8 RDW Coeff of Jeff 12.7 Plt Count 185 MPV 8.5 Immature Gran % (Auto) 0.300 Neut % (Auto) 70.9 H Lymph % (Auto) 19.0 [place] % (Auto) 9.5 Eos % (Auto) 0.0 Baso % (Auto) 0.3 Absolute Neuts (auto) 4.2 Absolute Lymphs (auto) 1.12 Nucleated RBC % 0 Sodium 132 L Potassium 3.9 Chloride 98 Carbon Dioxide 21.0 Anion Gap 13 BUN 12 Creatinine 0.86 Estim Creat Clear Calc 52.72 Est GFR (MDRD) Non-Af 76 BUN/Creatinine Ratio 13.7 Glucose 100 H Calcium 8.7 Radiography Diagnostic Testing: Clinical Impression(s) from Imaging Studies Brain CT 12/14/24 20:31 IMPRESSION: No acute intracranial abnormality. Reading Location: [id number] Discharge Plan Triage Chief Complaint: Headache ED Provider: Harsha Galvan Dx/Rx/DC Orders Clinical Impression: Migraine headache, Hyponatremia Instructions: ED, Migraine (Classical) Prescriptions: No Action Viibryd 20 mg tablet 20 mg PO DAILY almotriptan malate 12.5 mg tablet 12.5 mg PO ONCE PRN (Reason: migraines) budesonide 3 mg capsule,delayed,extend.release 9 mg PO QAM 30 Days Qty: 90 6RF hyoscyamine sulfate 0.125 mg tablet 0.125 mg PO BID-QID PRN (Reason: dyspepsia) Qty: 60 0RF topiramate 25 MG tablet 25 mg PO DAILY Patient Comments: TAKES FOR MIGRAINES. oiwjryuo-aly-QZ-lycopen-lutein 1 EACH tablet 1 cap PO DAILY Patient Comments: SUPPLEMENT cholecalciferol (vitamin D3) 1,000 UNIT capsule 1,000 unit PO DAILY Patient Comments: SUPPLEMENT biotin 1 MG capsule 1 cap PO DAILY cyclobenzaprine 10 MG tablet 10 mg PO QHS 0RF valacyclovir 500 MG tablet 500 mg PO DAILY calcium citrate-vitamin D3 1 EACH tablet 2 tab PO DAILY oxybutynin chloride 10 mg tablet extended release 24hr 10 mg PO DAILY Airborne Gummy 250-11.66 mg tablet,chewable 1 tab PO TID potassium chloride 20 mEq tablet,ER particles/crystals 20 meq PO BID Primary Care Provider: Juan Jose Brenner Chi Referrals: Juan Jose Brenner Chi, MD [Primary Care Provider] - As soon as possible Activity Restrictions/Additional Instructions: Continue your Topamax and your triptan for headaches. Follow-up with your primary care provider regarding your headache. Print Language: Kenyan Disposition Disposition: Home, Self Care Discharge Date/Time: 12/14/24 22:49
[2024-12-14] MEDS: DiphenhydrAMINE 50 MG/ML Syringe 25 MG IV (20:18)
[2024-12-14] MEDS: proCHLORPERazine 10 MG/2 ML Vial IV (20:19)
[2024-12-14] MEDS: 0.9% Normal Saline (1000mL) 1,000 ML 999 ML IV (20:26)
--- NOTE | 2024-12-14 20:31 | CT_ITS ---
PROCEDURE: BRAIN/HEAD WITHOUT CONTRAST 12/14/2024 REASON FOR EXAM: PAIN TECHNIQUE: Head CT without intravenous contrast. Coronal and Sagittal reconstruction series were provided. One or more dose reduction techniques were used (e.g., Automated exposure control, adjustment of the mA and/or kV according to patient size, use of iterative reconstruction technique. RADIATION DOSE SUMMARY: CTDlvol: 45.0 mGy DLP: 762 mGycm COMPARISON: None FINDINGS: Brain: Unremarkable, without acute intracranial hemorrhage, mass effect, or midline shift. CSF Spaces: Normal for age Sinuses/Mastoids: Predominantly clear Bones: Unremarkable CT/Brain/Head without Contrast IMPRESSION: No acute intracranial abnormality. Reading Location: [facility]
[2024-12-14 20:36] LABS: Absolute Lymphocyte Count 1.12 X10^3/uL (0.83-4.51); Absolute Neutrophil Count 4.2 X10^3/uL (2.0-7.7); Basophil# 0.02 X10^3/uL; Basophil% 0.3 % (0-1); Hematocrit 39.6 % (37-47); Hemoglobin 13.7 g/dL (12.0-15.0); Lymphocyte # 1.12 X10^3/ul (0.83-4.51); Mean Corp Hgb Conc 34.6 g/dL (32-36); Mean Corpuscular Hgb 31.9 pg (27.0-32.0); Mean Corpuscular Volume 92.3 fL (81-99); Mean Platelet Vol. 8.5 fl (6.2-12.0); Monocyte# 0.56 X10^3/uL; Monocyte% 9.5 % (0-10); NRBC Flagged by Analyzer 0 % (0-5); Neutrophil # 4.18 X10^3/uL (2.7-7.7); Neutrophil % 70.9 % (47-70); Platelet Count 185 K/mm3 (150-450); RBC Distribution Width CV 12.7 % (11.6-14.6); RBC Distribution Width SD 42.8 fl (35.1-43.9); Red Blood Count 4.29 M/mm3 (4.2-5.4); White Blood Count 5.9 K/mm3 (4.4-11.0)
[2024-12-14 21:00] VITALS: BP 126/71; PULSE 94; RESP 14; O2SAT 97
[2024-12-14 21:43] LABS: Anion Gap 13 (5-15); BUN 12 mg/dL (4-19); BUN/Creat Ratio 13.7 RATIO (10-20); Calcium,Total 8.7 mg/dL (7.6-11.0); Chloride 98 mmol/L (98-108); Creatinine, Serum 0.86 mg/dL (0.70-1.20); EST Glomerular Filtration Rate 76 (>60); Estimated Creatinine Clearance 52.72 ml/min (50-250); Glucose 100 mg/dL (70-99); Potassium 3.9 mmol/L (3.3-5.1); Sodium Level 132 mmol/L (133-145)
[2024-12-14 22:16] VITALS: BP 127/71; PULSE 68; RESP 16; TEMP 36.6; O2SAT 99
[2024-12-14] MEDS: Lorazepam 2 MG/ML WCH Syringe IV (22:19)
== END 2024-12-14 22:49 | disposition home or self-care (01) ==
PROVIDERS: Emergency Provider Emergency Medicine; PCP Family Medicine Geriatric Medicine; Visit Provider Emergency Medicine
DX: G43.909 Migraine, unspecified, not intractable, without status migrainosus (principal); E87.1 Hypo-osmolality and hyponatremia; K58.9 Irritable bowel syndrome, unspecified; I10 Essential (primary) hypertension; Z79.899 Other long term (current) drug therapy
CPT/HCPCS: 70450; 80048; 85025; 96361; 96374; 96375; 99283; A4216

== ENCOUNTER → 2025-03-03 | Outpatient (CLI) | payer BC, SELFPAY ==
[2025-03-03 17:24] LABS: Hematocrit 43.0 % (37-47); Hemoglobin 14.5 g/dL (12.0-15.0); Immature Granulocytes Count 0.020 X10^3/uL (0.0-0.0); Mean Corp Hgb Conc 33.7 g/dL (32-36); Mean Corpuscular Volume 94.3 fL (81-99); Mean Platelet Vol. 9.1 fl (6.2-12.0); NRBC Flagged by Analyzer 0 % (0-5); Platelet Count 359 K/mm3 (150-450); RBC Distribution Width CV 13.8 % (11.6-14.6); RBC Distribution Width SD 47.8 fl (35.1-43.9); Red Blood Count 4.56 M/mm3 (4.2-5.4); White Blood Count 8.0 K/mm3 (4.4-11.0)
[2025-03-03 17:45] LABS: AST(SGOT) 30 U/L (<=31); Alanine Aminotransfer ALT/SGPT 33 U/L (<=34); Albumin, Serum 4.7 g/dL (3.4-4.8); Alkaline Phosphatase 79 U/L (35-104); Anion Gap 12 (5-15); BUN 13 mg/dL (4-19); BUN/Creat Ratio 15.7 RATIO (10-20); Calcium,Total 9.6 mg/dL (7.6-11.0); Carbon Dioxide 26.0 mmol/L (21.0-32.0); Chloride 99 mmol/L (98-108); Globulin 3.0 g/dL (2.2-4.2); Glucose 93 mg/dL (70-99); Potassium 4.0 mmol/L (3.3-5.1)
[2025-03-04 00:30] LABS: Xtra Tube Kwok EXTRA TUBE
== END | disposition home or self-care (01) ==
PROVIDERS: PCP Family Medicine Geriatric Medicine; Visit Provider Family Medicine Geriatric Medicine
DX: I10 Essential (primary) hypertension (principal)
CPT/HCPCS: 36415; 80053; 84443; 85025

== ENCOUNTER → 2025-04-21 | Outpatient (CLI) | payer BC, SELFPAY | END | disposition home or self-care (01) | LOC: CVS 12:40 | PROVIDERS: PCP Family Medicine Geriatric Medicine; Referring Provider Family Medicine Geriatric Medicine; Visit Provider Family Medicine Geriatric Medicine | DX: M79.89 Other specified soft tissue disorders (principal); M79.605 Pain in left leg | CPT/HCPCS: 93971 ==